=== PATIENT | female | born 1970 | race Caucasian/White ===

== ENCOUNTER 2016-08-18 09:05 | Inpatient (IN) | payer MEDICARE, MEDICAID ==
--- NOTE | 2016-08-18 09:30 | ED Physician Chart ---
Chief Complaint/HPI - Patient Information Date Seen:: 08/18/16 Time Seen:: 09:26 Chief Complaint:: abd p History of Present Illness:: pt bronght in by caregiver today. is complaining of mid-abd pain and wont eat this am. did eat yesterday 3 meals ok. no n/v/d. pt has minimal communicative ability and caregiver unable to determine the level of the pain. there has been a dry casing flusher cough also. has some temp here. no other known sx. no CHAUDHARY. no uri sx otw. no back pain. pt has a indwelling gandhi...last changed about 3 wks ago. Allergies:: Allergies Allergy/AdvReac Type Severity Reaction Status Date / Time No Known Allergies Allergy Verified 08/18/16 09:14 Vitals:: Vital Signs - 8 hr 08/18/16 09:05 Temp 97.5 F HR 77 RR 16 BP 108/67 O2 Sat % 98 Historian:: Patient, Other (caregiver) Review of Systems - Review of Systems General/Constitutional: Fever, No chills, No weight loss, No weakness, No diaphoresis, No edema, No loss of appetite Skin: No skin lesions, No rash, No bruising Head: No headache, No light-headedness Eyes: No loss of vision, No pain, No diplopia ENT: No earache, No nasal drainage, No sore throat, No tinnitus Neck: No neck pain, No swelling, No thyromegaly, No stiffness, No mass noted Cardio Vascular: No chest pain, No palpitations, No PND, No orthopnea, No edema Pulmonary: No SOB, Cough, No sputum, No wheezing GI: No nausea, No vomiting, No diarrhea, Pain, No melena, No hematochezia, No constipation, No hematemesis G/U: No dysuria, No frequency, No hematuria Musculoskeletal: No bone or joint pain, No back pain, No muscle pain Endocrine: No polyuria, No polydipsia Psychiatric: No prior psych history, No depression, No anxiety, No suicidal ideation Hematopoietic: No bruising, No lymphadenopathy Allergic/Immuno: No urticaria, No angioedema Neurological: No syncope, No focal symptoms, No weakness, No paresthesia, No headache, No seizure, No dizziness, No confusion, No vertigo Past Medical History - Past Medical History Past Medical History: Dyslipidemia, PUD/GERD, Thyroid disorder, Other ( developmentally challenged (donws synd?)) Social History: Care Facility Surgical History: None Medication: Reviewed Family Medical History - Family Member Mother History Unknown: Yes Physical Exam - Physical Examination General/Constitutional: Awake, Well-developed, well-nourished, Alert, No distress, GCS 15, Non-toxic appearing, Ambulatory Other Gen/Cons comments:: short statured w broad chest/body pt is awake/alert...poor historian. seems comfortable. oral mucosa dry lungs- clear b, nonlabored breathing, no cough heard during my exam. abd- mid abd tndrness. pos nabs. no rebound. no masses. Legs no edema, nontndr Head: Atraumatic Eyes: Lids, conjuctiva normal, PERRL, EOMI Skin: Nl inspection, No rash, No skin lesions, No ecchymosis, Well hydrated, No lymphadenopathy ENMT: External ears, nose nl, Nasal exam nl, Lips, teeth, gums nl Neck: Nontender, Full ROM w/o pain, No JVD, No nuchal rigidity, No bruit, No mass, No stridor Respiratory: Nl effort/Exclusion, Clear to Auscultation, No Wheeze/Rhonchi/Rales Cardio Vascular: RRR, No murmur, gallop, rubs, NL S1 S2 GI: No tenderness/rebounding/guarding, No organomegaly, No hernia, Normal BS's, Nondistended, No mass/bruits, No McBurney tenderness : No CVA tenderness Extremities: No tenderness or effusion, Full ROM, normal strength in all extremities, No edema, Normal digits & nails Neuro/Psych: Alert/oriented, DTR's symmetric, Normal sensory exam, Normal motor strength, Mood normal, Normal gait, No focal deficits Other Neuro/Psych comments:: baseline neuro status per [facility] Misc: normal gait, Normal back, No paraspinal tenderness Labs/Radiology/EKG Results - Lab Results Results: Laboratory Tests 08/18/16 08/18/16 08/18/16 09:45 09:45 09:45 WBC 10.0 RBC 3.15 L Hgb 11.0 L Hct 31.2 L MCV 99.2 MCH 34.8 H MCHC Differential 35.1 RDW 11.5 Plt Count 142 L MPV 7.9 Sodium 118 L* Potassium 3.9 Chloride 91 L Carbon Dioxide 24.4 Anion Gap 6.5 L BUN 11 Creatinine 1.0 Est GFR ( Amer) > 60.0 Est GFR (Non-Af Amer) > 60.0 BUN/Creatinine Ratio 11.0 Glucose 123 H Whole Bld Lactic Acid 0.59 L Calcium 8.3 L Total Bilirubin 0.4 AST 17 ALT 14 Alkaline Phosphatase 66 Troponin I Total Protein 6.7 Albumin 3.4 L Globulin 3.3 Albumin/Globulin Ratio 1.0 Urine Source Urine Color Urine Clarity Urine pH Ur Specific [place] Urine Protein Urine Glucose (UA) Urine Ketones Urine Blood Urine Nitrate Urine Bilirubin Urine Urobilinogen Ur Leukocyte Esterase Urine Test 08/18/16 08/18/16 08/18/16 09:45 10:00 10:00 WBC RBC Hgb Hct MCV MCH MCHC Differential RDW Plt Count MPV Sodium Potassium Chloride Carbon Dioxide Anion Gap BUN Creatinine Est GFR ( Amer) Est GFR (Non-Af Amer) BUN/Creatinine Ratio Glucose Whole Bld Lactic Acid Calcium Total Bilirubin AST ALT Alkaline Phosphatase Troponin I < 0.01 L Total Protein Albumin Globulin Albumin/Globulin Ratio Urine Source CATH Urine Color YELLOW Urine Clarity SL. CLOUDY Urine pH 6.0 Ur Specific [place] 1.010 Urine Protein TRACE Urine Glucose (UA) NEGATIVE Urine Ketones NEGATIVE Urine Blood MODERATE H Urine Nitrate NEGATIVE Urine Bilirubin NEGATIVE Urine Urobilinogen 0.2 Ur Leukocyte Esterase LARGE H Urine Test NEGATIVE - Radiology Results Results: ct abd- copious stool, pericardial effusion, bladder wall thickening. l adnexal cysts cxr nad - EKG Interpretations EKG Time:: 09:35 Rhythm: nsr 68, wnl [place]: 69 Rate: 68 ED Septic Shock - . Is Septic Shock (SBP<90, OR Lactate>4 mmol\L) present?: No - <6hrs of presentation: Vital Signs: Vital Signs - 8 hr 08/18/16 09:05 Temp 97.5 F HR 77 RR 16 BP 108/67 O2 Sat % 98 Reassessment (Disposition) - Reassessment Reassessment Condition:: Unchanged - Diagnosis Diagnosis:: 1 uti 2 pericardial effusion 3 adnexal cysys 4 constipation - Patient Disposition Admitted to:: Med/Surg Condition at Disposition:: Unchanged
[2016-08-18 10:11] LABS: ALKALINE PHOSPHATASE 66 U/L (34-104); ANION GAP 6.5 (7.0-16.0); BILIRUBIN,TOTAL 0.4 mg/dL (0.3-1.0); BUN - UREA NITROGEN 11 mg/dL (7-25); CALCIUM SERUM 8.3 mg/dL (8.6-10.3); CARBON DIOXIDE 24.4 mEq/L (21.0-31.0); CHLORIDE 91 mEq/L (98-107); GLUCOSE 123 mg/dL (70-105); POTASSIUM SERUM 3.9 mEq/L (3.5-5.1); SGOT 17 U/L (13-39); SGPT/ALT 14 U/L (7-52)
[2016-08-18 10:13] LABS: HEMATOCRIT 31.2 % (35.0-45.0); MEAN CELL VOLUME 99.2 fl (81-100); MEAN CORPUSCULAR HEMOGLOBIN 34.8 pg (27.0-31.0); MEAN CORPUSCULAR HGB CONC 35.1 pg (28.0-36.0); MEAN PLATELET VOLUME 7.9 fl; PLATELET COUNT 142 Th/cmm (150-400); RED BLOOD COUNT 3.15 Mil/cmm (3.80-5.10); RED CELL DISTRIBUTION WIDTH 11.5 % (11.5-20.0)
[2016-08-18 10:15] LABS: SODIUM SERUM 118 mEq/L (136-145)
[2016-08-18 10:15] LABS: URINE BILIRUBIN NEGATIVE (NEGATIVE); URINE BLOOD MODERATE (NEGATIVE); URINE COLOR YELLOW; URINE GLUCOSE (UA) NEGATIVE (NEGATIVE); URINE KETONE NEGATIVE (NEGATIVE); URINE PROTEIN TRACE mg/dL (NEGATIVE); URINE UROBILINOGEN 0.2 E.U./dL (0.2 - 1.0)
[2016-08-18] MEDS ORDERED: Sodium Chloride 0.9% 1,000 ML IV ONE ×3 (10:15→11:29)
[2016-08-18 10:19] LABS: URINE BACTERIA MODERATE /hpf (NONE SEEN); URINE EPITHELIAL CELLS MODERATE /lpf (FEW); URINE WBC 50-100 /hpf (0-5)
--- NOTE | 2016-08-18 10:21 | Diagnostic Imaging Report ---
CHEST X-RAY: AP view INDICATION: Cough COMPARISON: None FINDINGS: Mild increased interstitial lung markings are noted. No focal consolidation. There may be trace bilateral effusions. Borderline prominent heart is noted. Osseous structures are intact IMPRESSION: Mild increased interstitial lung markings which may represent a marginal degree of congestion. These correlate clinically. Borderline cardiomegaly.
[2016-08-18 11:03] LABS: BAND NEUTROPHILE 10 % (0-10); NEUTROPHILS 86 % (40-80); PLATELET ESTIMATE ADEQUATE (NORMAL); PLATELET MORPHOLOGY NORMAL (NORMAL); TOTAL CELLS COUNTED 100
--- NOTE | 2016-08-18 11:06 | Diagnostic Imaging Report ---
CT abdomen and pelvis without intravenous contrast Indication: Abdominal pain Comparison: None, Technique: Axial images were obtained from the lung bases to the bilateral proximal femurs without IV contrast. Coronal reconstructions were made. total DLP: 435, CTDI9.6 FINDINGS: Exam is limited due to motion Hypoventilatory atelectatic changes of the lung bases are seen with small bilateral effusions. Small pericardial effusion is partially visualized. Assessment of the solid organs is limited due to lack of IV contrast. No evidence of focal hepatic lesions. Borderline splenomegaly is noted. No focal identified. Evaluation of the pancreas is limited, however, no discrete focal lesions identified. No focal adrenal lesions. Left renal atrophy is noted. Mild to moderate bilateral hydronephrosis is noted. A Murray catheter seen within collapsed urinary bladder with urinary bladder wall thickening. No radiopaque stones identified. Heterogeneous uterus is noted. Small left adnexal cystic changes are noted. Copious stool is seen throughout the colon gas-filled loops of bowel. No evidence of appendicitis. Small free fluid is seen within the pelvis. No free air. Degenerative changes of the spine are noted. IMPRESSION: Copious stool throughout the colon. Please clinically clinically for constipation. Murray catheter within collapsed urinary bladder with generalized urinary bladder wall thickening. Please correlate with clinical findings. There is also mild to moderate bilateral hydronephrosis which may be long-standing. No radiopaque renal stones identified. Left renal atrophy was also noted. Small amount of free fluid in the pelvis Heterogeneous uterus and small left adnexal cystic changes.. Short-term follow-up ultrasound would provide for additional detail and assessment. Borderline splenomegaly. Small pleural effusions and small pericardial effusion.
[2016-08-18] MEDS ORDERED: cefTRIAXone 1 GM in Sodium Chloride 0.9% 50 ML IV SCH (12:00)
[2016-08-18 12:53] VITALS: BP 132/63
[2016-08-18] MEDS ORDERED: ACETAMINOPHEN 500 MG PO PRN (13:34)
[2016-08-18] MEDS ORDERED: Acetaminophen 500 MG TAB ONE (13:45)
[2016-08-18] MEDS: Acetaminophen 500 MG TAB PO PRN (15:45)
[2016-08-18] MEDS ORDERED: Pneumococcal Vaccine 0.5 mL Vial IM ONE (15:58)
[2016-08-18] MEDS ORDERED: Influenza Vaccine 0.5 mL Syr IM ONE (15:58)
[2016-08-18] MEDS: Docusate Sodium/Senna Tab PO SCH (16:29)
[2016-08-18] MEDS: Ferrous Sulfate 325 MG TAB PO SCH (16:29)
--- NOTE | 2016-08-18 16:35 | History & Physical ---
CHIEF COMPLAINT: Abdominal pain. HISTORY OF PRESENT ILLNESS: This is the case of a 45-year-old white female with Down syndrome, who was brought by product safety engineer secondary to abdominal pain. The patient is a poor historian and she cannot relate the level of pain. During examination in the ER, was found UTI plus hyponatremia. Due to these, the patient was hospitalized. PAST MEDICAL HISTORY: The patient has past medical history of Down syndrome apparently, she uses antipsychotics, dyslipidemia, GERD, and thyroid disorder. SOCIAL HISTORY: The patient is a permanent resident of a care facility. SURGICAL HISTORY: None. MEDICATIONS: Reviewed. FAMILY HISTORY: Unremarkable. ALLERGIES: No known allergies. REVIEW OF SYSTEMS: Information was not obtained secondary to the patient's mental condition. PHYSICAL EXAMINATION: GENERAL: Does reveal a fairly nourished and developed white female, awake, alert, in no distress. HEENT: Head is normocephalic and atraumatic. Eyes: Pupils reactive to light. Fundus not examined at this time. Nose: No evidence of nasal obstruction. Ears: No evidence of any discharge. Mouth: Fairly kept. LUNGS: Bilateral air entry. HEART: Regular rhythm. ABDOMEN: Soft, tender on palpation in the suprapubic area, bowel sound is present. EXTREMITIES: Full movement of all extremities. No edema. NEUROLOGICAL: The patient is awake, alert, confused, not oriented. Neurological examination was not completed secondary to the patient's mental condition. IMPRESSION: 1. Urinary tract infection. 2. Pericardial effusion. 3. Ovarian cysts. 4. Constipation. 5. Mental retardation, Down syndrome. PLAN: 1. The patient will be admitted in the medical surgical floor. 2. IV normal saline. 3. Ceftriaxone. 4. Regular diet. 5. Continue with home medications. 6. Consult with Cardiology. 7. CBC, CMP at a.m. JOB# [id number]
--- NOTE | 2016-08-18 19:21 | Admit Criteria Form ---
Admit Criteria Forms - Admit Criteria Diagnosis: URINARY COMPLICATIONS Clinical Indications for Inpatient Care (Place 'X' for any and all applicable criteria): Ongoing inpatient care may be indicated for urinary complications with ANY ONE of the following: [X]I. Urinary tract infection requiring inpatient care as indicated by ANY ONE of the following(8)(19)(20): [ ]a) Severe symptoms (eg, high fever, severe pain) [ ]b) Vomiting or dehydration requiring ongoing inpatient care [X]c) IV antibiotic needs that cannot be managed at lower level of care [ ]d) Hemodynamic instability [ ]e) Obstruction of collecting system by stone or tumor [ ]II. Urinary retention requiring drainage or surgery (3)(4)(5)(17)(18) [ ]III. Renal failure (Use Renal Failure Criteria for further information.) [ ]IV. Oliguria(30) [ ]V. Post obstructive diuresis requiring close monitoring of urine output and intravenous compensation for excessive fluid losses(33) Extended stay beyond goal length of stay for primary condition may be needed until ALL of the following are present(3)(4)(5)(8): [ ]a) Renal function (creatinine) at baseline, or daily decreases in creatinine consistent with renal function return [ ]b) Voiding adequately or with urinary catheter or percutaneous suprapubic tube and management regimen in place that is performable at lower level of care. [ ]c) Urine output adequate [ ]d) Fever absent or resolving [ ]e) Infection absent or treatable at next level of care The original [employer] content created by [employer] has been revised. The portions of the content which have been revised are identified through the use of italic text or in bold, and [facility] has neither reviewed nor approved the modified material. All other unmodified content is copyright [facility] [employer] Please see references footnoted in the original [facility] [employer] edition 2016 Admit Criteria Met?: Yes
[2016-08-18] MEDS: Sodium Chloride 0.9% 1,000 ML IV SCH (22:54)
[2016-08-19] MEDS: Acetaminophen 500 MG TAB PO PRN ×2 (02:06→10:15)
[2016-08-19] MEDS: Levothyroxine 0.075 Mg Tab PO SCH (08:25)
[2016-08-19] MEDS: Ferrous Sulfate 325 MG TAB PO SCH ×2 (08:26→16:14)
[2016-08-19] MEDS: Docusate Sodium/Senna Tab PO SCH ×2 (08:26→16:14)
[2016-08-19] MEDS: Multivitamin Tab PO SCH (08:27)
--- NOTE | 2016-08-19 09:14 | General Progress Note ---
Subjective - Review of Systems Service Date: 08/19/16 Subjective: I am fine Objective - Results Result Diagrams: 08/18/16 09:45 08/18/16 09:45 Recent Labs: Laboratory Last Values WBC 10.0 Th/cmm (4.8-10.8) 08/18/16 09:45 RBC 3.15 Mil/cmm (3.80-5.10) L 08/18/16 09:45 Hgb 11.0 gm/dL (11.7-15.5) L 08/18/16 09:45 Hct 31.2 % (35.0-45.0) L 08/18/16 09:45 MCV 99.2 fl (81-100) 08/18/16 09:45 MCH 34.8 pg (27.0-31.0) H 08/18/16 09:45 MCHC Differential 35.1 pg (28.0-36.0) 08/18/16 09:45 RDW 11.5 % (11.5-20.0) 08/18/16 09:45 Plt Count 142 Th/cmm (150-400) L 08/18/16 09:45 MPV 7.9 fl 08/18/16 09:45 Band Neutrophils % 10 % (0-10) 08/18/16 09:45 Neutrophils (Manual) 86 % (40-80) H 08/18/16 09:45 Lymphocytes 1 % (20-50) L 08/18/16 09:45 Monocytes 3 % (2-10) 08/18/16 09:45 Platelet Estimate ADEQUATE (NORMAL) 08/18/16 09:45 Platelet Morphology NORMAL (NORMAL) 08/18/16 09:45 RBC Morph Micro Appear NORMAL (NORMAL) 08/18/16 09:45 Sodium 118 mEq/L (136-145) L* 08/18/16 09:45 Potassium 3.9 mEq/L (3.5-5.1) 08/18/16 09:45 Chloride 91 mEq/L (98-107) L 08/18/16 09:45 Carbon Dioxide 24.4 mEq/L (21.0-31.0) 08/18/16 09:45 Anion Gap 6.5 (7.0-16.0) L 08/18/16 09:45 BUN 11 mg/dL (7-25) 08/18/16 09:45 Creatinine 1.0 mg/dL (0.6-1.2) 08/18/16 09:45 Est GFR ( Amer) > 60.0 ml/min (>90) 08/18/16 09:45 Est GFR (Non-Af Amer) > 60.0 ml/min 08/18/16 09:45 BUN/Creatinine Ratio 11.0 08/18/16 09:45 Glucose 123 mg/dL (70-105) H 08/18/16 09:45 Whole Bld Lactic Acid 0.59 mmol/L (0.60-2.00) L 08/18/16 09:45 Calcium 8.3 mg/dL (8.6-10.3) L 08/18/16 09:45 Total Bilirubin 0.4 mg/dL (0.3-1.0) 08/18/16 09:45 AST 17 U/L (13-39) 08/18/16 09:45 ALT 14 U/L (7-52) 08/18/16 09:45 Alkaline Phosphatase 66 U/L (34-104) 08/18/16 09:45 Troponin I < 0.01 ng/mL (0.01-0.05) L 08/18/16 09:45 Total Protein 6.7 gm/dL (6.0-8.3) 08/18/16 09:45 Albumin 3.4 gm/dL (3.7-5.3) L 08/18/16 09:45 Globulin 3.3 gm/dL 08/18/16 09:45 Albumin/Globulin Ratio 1.0 (1.0-1.8) 08/18/16 09:45 Urine Source CATH 08/18/16 10:00 Urine Color YELLOW 08/18/16 10:00 Urine Clarity SL. CLOUDY (CLEAR) 08/18/16 10:00 Urine pH 6.0 08/18/16 10:00 Ur Specific [place] 1.010 (1.005-1.030) 08/18/16 10:00 Urine Protein TRACE mg/dL (NEGATIVE) 08/18/16 10:00 Urine Glucose (UA) NEGATIVE mg/dL (NEGATIVE) 08/18/16 10:00 Urine Ketones NEGATIVE mg/dL (NEGATIVE) 08/18/16 10:00 Urine Blood MODERATE (NEGATIVE) H 08/18/16 10:00 Urine Nitrate NEGATIVE (NEGATIVE) 08/18/16 10:00 Urine Bilirubin NEGATIVE (NEGATIVE) 08/18/16 10:00 Urine Urobilinogen 0.2 E.U./dL (0.2 - 1.0) 08/18/16 10:00 Ur Leukocyte Esterase LARGE (NEGATIVE) H 08/18/16 10:00 Urine RBC 3-6 /hpf (0-5) 08/18/16 10:00 Urine WBC 50-100 /hpf (0-5) H 08/18/16 10:00 Ur Epithelial Cells MODERATE /lpf (FEW) 08/18/16 10:00 Urine Bacteria MODERATE /hpf (NONE SEEN) 08/18/16 10:00 Urine Test NEGATIVE 08/18/16 10:00 - Physical Exam Vitals and I&O: Vital Signs Temp 97.8 F 08/19/16 08:00 Pulse 69 08/19/16 08:00 Resp 18 08/19/16 08:00 BP 117/61 08/19/16 08:00 Pulse Ox 97 08/19/16 08:00 Intake & Output 08/18/16 08/19/16 08/19/16 18:59 06:59 18:59 Intake Total 50 1200 Output Total 2651 Balance 50 -1451 Intake: Intake, IV Amount 50 Oral 1200 Output: Urine 2650 Stool 1 Active Medications: Current Medications Acetaminophen (Tylenol Extra Strength) 500 mg PO Q6H PRN PRN Reason: Abdominal Pain Stop: 10/17/16 14:29 Last Admin: 08/19/16 02:06 Dose: 500 mg Ascorbic Acid (Vitamin C) 500 mg PO DAILY [facility] Stop: 10/18/16 08:59 Last Admin: 08/19/16 08:27 Dose: 500 mg Benztropine Mesylate (Cogentin) 0.5 mg PO BID [facility] Stop: 10/17/16 16:59 Last Admin: 08/19/16 08:25 Dose: 0.5 mg Cyanocobalamin (Vitamin B12) 1,000 mcg PO DAILY [facility] Stop: 10/18/16 08:59 Last Admin: 08/19/16 08:26 Dose: 1,000 mcg Famotidine (Pepcid) 20 mg PO BID [facility] Stop: 10/17/16 16:59 Last Admin: 08/19/16 08:25 Dose: 20 mg Ferrous Sulfate (Iron) 325 mg PO BID [facility] Stop: 10/17/16 16:59 Last Admin: 08/19/16 08:26 Dose: 325 mg Ceftriaxone Sodium 1 gm/ (Sodium Chloride) 100 mls @ 100 mls/hr IV Q24HR [facility] Stop: 10/18/16 09:59 Sodium Chloride (Nacl 0.9%) 1,000 mls @ 75 mls/hr IV .[id number] [facility] Stop: 10/17/16 13:44 Last Admin: 08/18/16 22:54 Dose: 75 mls/hr Levothyroxine Sodium (Synthroid) 0.075 mg PO QDAC [facility] Stop: 10/18/16 07:29 Last Admin: 08/19/16 08:25 Dose: 0.075 mg Magnesium Hydroxide (Milk Of Magnesia) 10 ml PO TID [facility] Stop: 10/18/16 13:59 Multivitamins/Vitamin C (Theragran) 1 tab PO DAILY [facility] Stop: 10/18/16 08:59 Last Admin: 08/19/16 08:27 Dose: 1 tab Paroxetine HCl (Paxil) 20 mg PO DAILY [facility] PRN Reason: Protocol Stop: 10/18/16 08:59 Last Admin: 08/19/16 08:24 Dose: 20 mg Sennosides (Senna Plus 50 Mg-8.6 Mg) 1 tab PO BID [facility] Stop: 10/17/16 16:59 Last Admin: 08/19/16 08:26 Dose: 1 tab Vitamin D (Vitamin D) 400 iu PO DAILY [facility] Stop: 10/18/16 08:59 Last Admin: 08/19/16 08:25 Dose: 400 iu Ziprasidone (Geodon) 80 mg PO BID [facility] Stop: 10/17/16 16:59 Last Admin: 08/19/16 08:28 Dose: 80 mg General: Alert, Other (Confused) HEENT: Atraumatic Neck: Supple Cardiovascular: Regular rate Lungs: Clear to auscultation Abdomen: Bowel sounds, Soft, Other (Tender at palpation in mesogastry) Extremities: Other (No edema) Neurological: Other (Unstable gait) Skin: Other (Warm and dry) Psych/Mental Status: Other (Confused) - Procedures Procedures: Procedures Procedure Code Date CHANGE DRAINAGE DEVICE IN BLADDER, EXTERNAL APPROACH [id number] 10/04/15 INSERT BLADDER CATH COMPLEX [id number] 03/02/15 INSERT TEMP BLADDER CATH [id number] 03/30/15 REPLACE INDWELLING CATH 57.95 03/02/15 Assessment/Plan - Problem List Patient Problems: All Active Problems Urinary retention (Acute) R33.9 - Assessment Assessment: Patient is awake, alert, calm, in no acute distress. Dx: UTI, MR, Down syndrome , Pericardial effusion - Plan Plan: Echocardiogram requested, Pelvic US requested, awaiting Cardio eval.
[2016-08-19] MEDS: cefTRIAXone 1 GM in Sodium Chloride 0.9% 100 ML IV SCH (09:55)
[2016-08-19 10:33] LABS: % BASOPHILS 0.3 % (0.0-2.0); % EOSINOPHILS 0.3 % (0.0-5.0); % MONOCYTES 7.3 % (2.0-10.0); % NEUTROPHILS 82.1 % (40.0-80.0); HEMATOCRIT 30.6 % (35.0-45.0); HEMOGLOBIN 10.2 gm/dL (11.7-15.5); MEAN CELL VOLUME 101.1 fl (81-100); MEAN CORPUSCULAR HEMOGLOBIN 33.8 pg (27.0-31.0); MEAN CORPUSCULAR HGB CONC 33.5 pg (28.0-36.0); MEAN PLATELET VOLUME 7.6 fl; NEUTROPHILE ABSOLUTE 4.5 Th/cmm (1.8-8.0); PLATELET COUNT 141 Th/cmm (150-400); RED BLOOD COUNT 3.03 Mil/cmm (3.80-5.10); RED CELL DISTRIBUTION WIDTH 11.9 % (11.5-20.0)
[2016-08-19 10:34] LABS: WHITE BLOOD COUNT 5.5 Th/cmm (4.8-10.8)
[2016-08-19 10:50] LABS: ALKALINE PHOSPHATASE 64 U/L (34-104); ANION GAP 5.4 (7.0-16.0); BILIRUBIN,TOTAL 0.2 mg/dL (0.3-1.0); BUN - UREA NITROGEN 12 mg/dL (7-25); BUN/CREATININE RATIO 13.3; CALCIUM SERUM 8.3 mg/dL (8.6-10.3); CARBON DIOXIDE 26.8 mEq/L (21.0-31.0); CHLORIDE 103 mEq/L (98-107); CREATININE - SERUM 0.9 mg/dL (0.6-1.2); GLUCOSE 123 mg/dL (70-105); POTASSIUM SERUM 4.2 mEq/L (3.5-5.1); SGOT 16 U/L (13-39); SGPT/ALT 14 U/L (7-52)
[2016-08-19 11:19] LABS: SODIUM SERUM 131 mEq/L (136-145)
--- NOTE | 2016-08-19 13:46 | Diagnostic Imaging Report ---
Pelvic ultrasound HISTORY: Pain, ovarian cyst The exam is limited due to transabdominal sonographic technique. The patient declined transvaginal sonographic evaluation. There is a normal uterine size (6.6 x 2.9 x 3.9 cm). The right ovary is unremarkable. The left ovary cannot be seen. No abnormal masses. No abnormal fluid collections. Findings consistent with an indwelling Murray catheter noted in the urinary bladder. IMPRESSION: 1. Somewhat limited exam 2. No definite abnormalities. No abnormal masses.
[2016-08-19] MEDS: Magnesium Hydroxide (MOM) 30 mL UDC PO SCH (14:11)
[2016-08-19] MEDS: Albuterol Nebulizer 2.5mg/3mL HHN SCH ×2 (14:12→19:24)
[2016-08-19] MEDS: Sodium Chloride 0.9% 1,000 ML IV SCH (18:45)
--- NOTE | 2016-08-19 19:14 | Cardiology ---
Patient of Dr. Lopez. M-MODE ECHOCARDIOGRAM: Mitral valve: Anterior leaflet of the mitral valve shows normal excursion, EF velocity. Posterior leaflet of the mitral valve shows normal excursion. Left ventricular posterior wall shows increased thickness, normal excursion. Interventricular septum shows increased thickness, normal excursion, hypertrophy of the left ventricle, ejection fraction 60%. Left atrium normal. Aortic root shows normal dimension, normal excursion of aortic leaflets. There is a trace pericardial effusion. CONCLUSION: Hypertrophy of the left ventricle, trace pericardial effusion, ejection fraction 60%. 2D ECHO: Long axis view showed normal-sized left ventricle with hypertrophy of the left ventricle. Left atrium normal. Aortic root shows normal dimension, normal excursion of aortic leaflets. Short axis view of mitral valve normal. Short axis view of aortic valve normal. Apical four-chamber view showed normal-sized left ventricle, left atrium, right ventricle, right atrium, tricuspid valve and mitral valve with trace tricuspid regurgitation. CONCLUSION: Minimal hypertrophy of the left ventricle, trace tricuspid regurgitation, ejection fraction 60%. Doppler study shows prominent A wave consistent with poor compliance of left ventricle, trace tricuspid regurgitation, pulmonary regurgitation, mitral regurgitation. CONCLUSION: Trace mitral regurgitation, tricuspid regurgitation, pulmonary regurgitation, ejection fraction 60%, mild hypertrophy of the left ventricle, trace pericardial effusion. [facility]# [id number]
--- NOTE | 2016-08-20 02:35 | Consultation ---
The patient of Dr. Lopez. HISTORY AND PHYSICAL: This 45-year-old female patient who is mentally retarded, the patient came to the Emergency Room with abdominal pain. The patient had a CT scan, which showed bilateral hydronephrosis with constipation. The patient is admitted. The patient had a trace pericardial effusion and hence, Cardiology consult was requested. PAST MEDICAL HISTORY: Down syndrome, hyperlipidemia, GERD, hypothyroidism. FAMILY HISTORY: Unremarkable. SOCIAL HISTORY: No history of smoking or alcohol abuse. ALLERGIES: None. PHYSICAL EXAMINATION: VITAL SIGNS: Blood pressure 120/80, pulse 70, respirations 20. HEAD: Normocephalic. No lumps or bumps. EYES: Pupils equal, reactive to light. Fundi show AV nicking, sclerae white, conjunctivae pink. NECK: Carotid 2+. Normal upstroke. JVD flat. Thyroid not palpable. Lymph nodes not palpable. CHEST: Shows increased AP diameter. No kyphosis or scoliosis. LUNGS: Bilateral bronchovesicular breath sounds. HEART: PMI fifth intercostal space with [id number] line. S1, S2. No S3 or S4. Systolic murmur, grade 2/6, lower left sternal border without radiation. ABDOMEN: Soft. Liver, spleen not palpable. No organomegaly. Bowel sounds active. NEUROLOGIC: The patient has Down syndrome. EXTREMITIES: Peripheral pulses 1+. No pedal edema. CLINICAL IMPRESSION: Small pericardial effusion, mental retardation, Down syndrome, urinary tract infection, hypothyroid, gastroesophageal reflux disease, hyperlipidemia. PLAN: The patient to continue on antibiotics. The patient does not need any further cardiac workup. The patient's echocardiogram shows trace pericardial effusion. JOB# [id number]
[2016-08-20 05:39] LABS: % BASOPHILS 0.9 % (0.0-2.0); % EOSINOPHILS 0.5 % (0.0-5.0); % LYMPHOCYTES 9.4 % (20.0-50.0); % MONOCYTES 6.5 % (2.0-10.0); % NEUTROPHILS 82.7 % (40.0-80.0); HEMATOCRIT 30.2 % (35.0-45.0); HEMOGLOBIN 10.5 gm/dL (11.7-15.5); MEAN CELL VOLUME 98.3 fl (81-100); MEAN CORPUSCULAR HGB CONC 34.6 pg (28.0-36.0); MEAN PLATELET VOLUME 7.4 fl; NEUTROPHILE ABSOLUTE 5.1 Th/cmm (1.8-8.0); PLATELET COUNT 164 Th/cmm (150-400); RED BLOOD COUNT 3.08 Mil/cmm (3.80-5.10); RED CELL DISTRIBUTION WIDTH 12.1 % (11.5-20.0); WHITE BLOOD COUNT 6.2 Th/cmm (4.8-10.8)
[2016-08-20 05:51] LABS: ALKALINE PHOSPHATASE 67 U/L (34-104); ANION GAP 9.8 (7.0-16.0); BILIRUBIN,TOTAL 0.3 mg/dL (0.3-1.0); BUN - UREA NITROGEN 10 mg/dL (7-25); BUN/CREATININE RATIO 12.5; CALCIUM SERUM 8.3 mg/dL (8.6-10.3); CARBON DIOXIDE 25.3 mEq/L (21.0-31.0); CHLORIDE 102 mEq/L (98-107); CREATININE - SERUM 0.8 mg/dL (0.6-1.2); GLUCOSE 120 mg/dL (70-105); POTASSIUM SERUM 4.1 mEq/L (3.5-5.1); SGOT 14 U/L (13-39); SGPT/ALT 10 U/L (7-52); SODIUM SERUM 133 mEq/L (136-145)
[2016-08-20] MEDS: Acetaminophen 500 MG TAB PO PRN (05:53)
[2016-08-20] MEDS: Magnesium Hydroxide (MOM) 30 mL UDC PO SCH ×4 (05:58→20:42)
[2016-08-20] MEDS: Levothyroxine 0.075 Mg Tab PO SCH (06:44)
[2016-08-20] MEDS: Albuterol Nebulizer 2.5mg/3mL HHN SCH ×3 (06:49→19:03)
--- NOTE | 2016-08-20 07:50 | General Progress Note ---
Subjective - Review of Systems Service Date: 08/20/16 Subjective: Pain is better Objective - Results Result Diagrams: 08/20/16 05:21 08/20/16 05:21 Recent Labs: Laboratory Last Values WBC 6.2 Th/cmm (4.8-10.8) 08/20/16 05:21 RBC 3.08 Mil/cmm (3.80-5.10) L 08/20/16 05:21 Hgb 10.5 gm/dL (11.7-15.5) L 08/20/16 05:21 Hct 30.2 % (35.0-45.0) L 08/20/16 05:21 MCV 98.3 fl (81-100) 08/20/16 05:21 MCH 34.0 pg (27.0-31.0) H 08/20/16 05:21 MCHC Differential 34.6 pg (28.0-36.0) 08/20/16 05:21 RDW 12.1 % (11.5-20.0) 08/20/16 05:21 Plt Count 164 Th/cmm (150-400) 08/20/16 05:21 MPV 7.4 fl 08/20/16 05:21 Neutrophils % 82.7 % (40.0-80.0) H 08/20/16 05:21 Band Neutrophils % 10 % (0-10) 08/18/16 09:45 Lymphocytes % 9.4 % (20.0-50.0) L 08/20/16 05:21 Monocytes % 6.5 % (2.0-10.0) 08/20/16 05:21 Eosinophils % 0.5 % (0.0-5.0) 08/20/16 05:21 Basophils % 0.9 % (0.0-2.0) 08/20/16 05:21 Neutrophils (Manual) 86 % (40-80) H 08/18/16 09:45 Lymphocytes 1 % (20-50) L 08/18/16 09:45 Monocytes 3 % (2-10) 08/18/16 09:45 Platelet Estimate ADEQUATE (NORMAL) 08/18/16 09:45 Platelet Morphology NORMAL (NORMAL) 08/18/16 09:45 RBC Morph Micro Appear NORMAL (NORMAL) 08/18/16 09:45 Sodium 133 mEq/L (136-145) L 08/20/16 05:21 Potassium 4.1 mEq/L (3.5-5.1) 08/20/16 05:21 Chloride 102 mEq/L (98-107) 08/20/16 05:21 Carbon Dioxide 25.3 mEq/L (21.0-31.0) 08/20/16 05:21 Anion Gap 9.8 (7.0-16.0) 08/20/16 05:21 BUN 10 mg/dL (7-25) 08/20/16 05:21 Creatinine 0.8 mg/dL (0.6-1.2) 08/20/16 05:21 Est GFR ( Amer) > 60.0 ml/min (>90) 08/20/16 05:21 Est GFR (Non-Af Amer) > 60.0 ml/min 08/20/16 05:21 BUN/Creatinine Ratio 12.5 08/20/16 05:21 Glucose 120 mg/dL (70-105) H 08/20/16 05:21 Whole Bld Lactic Acid 0.59 mmol/L (0.60-2.00) L 08/18/16 09:45 Calcium 8.3 mg/dL (8.6-10.3) L 08/20/16 05:21 Total Bilirubin 0.3 mg/dL (0.3-1.0) 08/20/16 05:21 AST 14 U/L (13-39) 08/20/16 05:21 ALT 10 U/L (7-52) 08/20/16 05:21 Alkaline Phosphatase 67 U/L (34-104) 08/20/16 05:21 Troponin I < 0.01 ng/mL (0.01-0.05) L 08/18/16 09:45 Total Protein 6.3 gm/dL (6.0-8.3) 08/20/16 05:21 Albumin 3.2 gm/dL (3.7-5.3) L 08/20/16 05:21 Globulin 3.1 gm/dL 08/20/16 05:21 Albumin/Globulin Ratio 1.0 (1.0-1.8) 08/20/16 05:21 Urine Source CATH 08/18/16 10:00 Urine Color YELLOW 08/18/16 10:00 Urine Clarity SL. CLOUDY (CLEAR) 08/18/16 10:00 Urine pH 6.0 08/18/16 10:00 Ur Specific [place] 1.010 (1.005-1.030) 08/18/16 10:00 Urine Protein TRACE mg/dL (NEGATIVE) 08/18/16 10:00 Urine Glucose (UA) NEGATIVE mg/dL (NEGATIVE) 08/18/16 10:00 Urine Ketones NEGATIVE mg/dL (NEGATIVE) 08/18/16 10:00 Urine Blood MODERATE (NEGATIVE) H 08/18/16 10:00 Urine Nitrate NEGATIVE (NEGATIVE) 08/18/16 10:00 Urine Bilirubin NEGATIVE (NEGATIVE) 08/18/16 10:00 Urine Urobilinogen 0.2 E.U./dL (0.2 - 1.0) 08/18/16 10:00 Ur Leukocyte Esterase LARGE (NEGATIVE) H 08/18/16 10:00 Urine RBC 3-6 /hpf (0-5) 08/18/16 10:00 Urine WBC 50-100 /hpf (0-5) H 08/18/16 10:00 Ur Epithelial Cells MODERATE /lpf (FEW) 08/18/16 10:00 Urine Bacteria MODERATE /hpf (NONE SEEN) 08/18/16 10:00 Urine Test NEGATIVE 08/18/16 10:00 - Physical Exam Vitals and I&O: Vital Signs Temp 97.5 F 08/20/16 03:50 Pulse 73 08/20/16 03:50 Resp 18 08/20/16 03:50 BP 98/51 08/20/16 03:50 Pulse Ox 98 08/20/16 03:50 Intake & Output 08/19/16 08/20/16 08/20/16 18:59 06:59 18:59 Intake Total 1000 840 Output Total 3201 Balance 1000 -2361 Intake: Intake, IV Amount 1000 Sodium Chloride 0.9% 1, 1000 000 ml @ 75 mls/hr IV . [id number] [facility] Rx#:[id number] Oral 840 Output: Urine 3200 Stool 1 Other: # Voids 1 # Bowel Movements 1 Stool Characteristics Soft Formed Black Active Medications: Current Medications Acetaminophen (Tylenol) 650 mg PO Q6H [facility] Stop: 10/19/16 07:59 Albuterol Sulfate (Albuterol 2.5mg/3ml Neb Ud) 2.5 mg HHN [id number] [facility] Stop: 10/18/16 12:59 Last Admin: 08/20/16 06:49 Dose: 2.5 mg Ascorbic Acid (Vitamin C) 500 mg PO DAILY [facility] Stop: 10/18/16 08:59 Last Admin: 08/19/16 08:27 Dose: 500 mg Benztropine Mesylate (Cogentin) 0.5 mg PO BID [facility] Stop: 10/17/16 16:59 Last Admin: 08/19/16 16:14 Dose: 0.5 mg Cyanocobalamin (Vitamin B12) 1,000 mcg PO DAILY [facility] Stop: 10/18/16 08:59 Last Admin: 08/19/16 08:26 Dose: 1,000 mcg Famotidine (Pepcid) 20 mg PO BID [facility] Stop: 10/17/16 16:59 Last Admin: 08/19/16 16:14 Dose: 20 mg Ferrous Sulfate (Iron) 325 mg PO BID [facility] Stop: 10/17/16 16:59 Last Admin: 08/19/16 16:14 Dose: 325 mg Ceftriaxone Sodium 1 gm/ (Sodium Chloride) 100 mls @ 100 mls/hr IV Q24HR [facility] Stop: 10/18/16 09:59 Last Admin: 08/19/16 09:55 Dose: 100 mls/hr Sodium Chloride (Nacl 0.9%) 1,000 mls @ 75 mls/hr IV .[id number] [facility] Stop: 10/17/16 13:44 Last Admin: 08/19/16 18:45 Dose: 75 mls/hr Levothyroxine Sodium (Synthroid) 0.075 mg PO QDAC [facility] Stop: 10/18/16 07:29 Last Admin: 08/20/16 06:44 Dose: 0.075 mg Magnesium Hydroxide (Milk Of Magnesia) 10 ml PO TID [facility] Stop: 10/18/16 13:59 Last Admin: 08/20/16 05:58 Dose: Not Given Multivitamins/Vitamin C (Theragran) 1 tab PO DAILY [facility] Stop: 10/18/16 08:59 Last Admin: 08/19/16 08:27 Dose: 1 tab Paroxetine HCl (Paxil) 20 mg PO DAILY [facility] PRN Reason: Protocol Stop: 10/18/16 08:59 Last Admin: 08/19/16 08:24 Dose: 20 mg Sennosides (Senna Plus 50 Mg-8.6 Mg) 1 tab PO BID [facility] Stop: 10/17/16 16:59 Last Admin: 08/19/16 16:14 Dose: 1 tab Vitamin D (Vitamin D) 400 iu PO DAILY [facility] Stop: 10/18/16 08:59 Last Admin: 08/19/16 08:25 Dose: 400 iu Ziprasidone (Geodon) 80 mg PO BID [facility] Stop: 10/17/16 16:59 Last Admin: 08/19/16 16:14 Dose: 80 mg General: Alert, Cooperative, No acute distress HEENT: Atraumatic Neck: Supple Cardiovascular: Regular rate Lungs: Clear to auscultation Abdomen: Bowel sounds, Soft, Tender, Other (Tender in middle of abdomen) Neurological: Normal gait Skin: Other (Warm and dry) Psych/Mental Status: Other (Confused) - Procedures Procedures: Procedures Procedure Code Date CHANGE DRAINAGE DEVICE IN BLADDER, EXTERNAL APPROACH [id number] 03/30/15 INSERT BLADDER CATH COMPLEX 52795 03/02/15 INSERT TEMP BLADDER CATH 12912 03/30/15 REPLACE INDWELLING CATH 57.95 03/02/15 Assessment/Plan - Problem List Patient Problems: All Active Problems Urinary retention (Acute) R33.9 - Assessment Assessment: Patient is awake, alert, calm, in no acute distress. Dx: UTI, MR, Down syndrome , Pericardial effusion - Plan Plan: Echocardiogram done. Pelvic US unremarkable. FOB requested.
[2016-08-20] MEDS: Multivitamin Tab PO SCH (08:17)
[2016-08-20] MEDS: Docusate Sodium/Senna Tab PO SCH ×2 (08:17→16:48)
[2016-08-20] MEDS: Ferrous Sulfate 325 MG TAB PO SCH ×2 (08:17→16:49)
[2016-08-20] MEDS: cefTRIAXone 1 GM in Sodium Chloride 0.9% 100 ML IV SCH (09:18)
[2016-08-20] MEDS: Sodium Chloride 0.9% 1,000 ML IV SCH (12:11)
[2016-08-21] MEDS: Sodium Chloride 0.9% 1,000 ML IV SCH (04:10)
[2016-08-21 05:28] LABS: % BASOPHILS 0.7 % (0.0-2.0); % EOSINOPHILS 1.8 % (0.0-5.0); % LYMPHOCYTES 16.1 % (20.0-50.0); % MONOCYTES 9.2 % (2.0-10.0); % NEUTROPHILS 72.2 % (40.0-80.0); HEMATOCRIT 30.4 % (35.0-45.0); HEMOGLOBIN 10.6 gm/dL (11.7-15.5); MEAN CELL VOLUME 99.3 fl (81-100); MEAN CORPUSCULAR HEMOGLOBIN 34.7 pg (27.0-31.0); MEAN PLATELET VOLUME 7.6 fl; NEUTROPHILE ABSOLUTE 3.5 Th/cmm (1.8-8.0); PLATELET COUNT 184 Th/cmm (150-400); RED BLOOD COUNT 3.06 Mil/cmm (3.80-5.10); RED CELL DISTRIBUTION WIDTH 12.1 % (11.5-20.0)
[2016-08-21 05:41] LABS: ALKALINE PHOSPHATASE 68 U/L (34-104); ANION GAP 7.5 (7.0-16.0); BILIRUBIN,TOTAL 0.2 mg/dL (0.3-1.0); BUN - UREA NITROGEN 14 mg/dL (7-25); CALCIUM SERUM 8.9 mg/dL (8.6-10.3); CHLORIDE 102 mEq/L (98-107); GLUCOSE 117 mg/dL (70-105); POTASSIUM SERUM 4.5 mEq/L (3.5-5.1); SGOT 15 U/L (13-39); SGPT/ALT 12 U/L (7-52); SODIUM SERUM 134 mEq/L (136-145)
[2016-08-21] MEDS: Levothyroxine 0.075 Mg Tab PO SCH (06:32)
[2016-08-21 06:41] LABS: WHITE BLOOD COUNT 4.8 Th/cmm (4.8-10.8)
[2016-08-21] MEDS: Albuterol Nebulizer 2.5mg/3mL HHN SCH ×3 (08:32→19:59)
[2016-08-21] MEDS: Ferrous Sulfate 325 MG TAB PO SCH ×2 (08:51→16:33)
[2016-08-21] MEDS: Magnesium Hydroxide (MOM) 30 mL UDC PO SCH ×3 (08:52→21:08)
[2016-08-21] MEDS: Multivitamin Tab PO SCH (08:52)
[2016-08-21] MEDS: Docusate Sodium/Senna Tab PO SCH ×2 (08:53→16:34)
[2016-08-21] MEDS: cefTRIAXone 1 GM in Sodium Chloride 0.9% 100 ML IV SCH (10:19)
--- NOTE | 2016-08-21 16:01 | General Progress Note ---
Subjective - Review of Systems Service Date: 08/21/16 Subjective: I fell better Objective - Results Result Diagrams: 08/21/16 05:12 08/21/16 05:12 Recent Labs: Laboratory Last Values WBC 4.8 Th/cmm (4.8-10.8) D 08/21/16 05:12 RBC 3.06 Mil/cmm (3.80-5.10) L 08/21/16 05:12 Hgb 10.6 gm/dL (11.7-15.5) L 08/21/16 05:12 Hct 30.4 % (35.0-45.0) L 08/21/16 05:12 MCV 99.3 fl (81-100) 08/21/16 05:12 MCH 34.7 pg (27.0-31.0) H 08/21/16 05:12 MCHC Differential 35.0 pg (28.0-36.0) 08/21/16 05:12 RDW 12.1 % (11.5-20.0) 08/21/16 05:12 Plt Count 184 Th/cmm (150-400) 08/21/16 05:12 MPV 7.6 fl 08/21/16 05:12 Neutrophils % 72.2 % (40.0-80.0) 08/21/16 05:12 Band Neutrophils % 10 % (0-10) 08/18/16 09:45 Lymphocytes % 16.1 % (20.0-50.0) L 08/21/16 05:12 Monocytes % 9.2 % (2.0-10.0) 08/21/16 05:12 Eosinophils % 1.8 % (0.0-5.0) 08/21/16 05:12 Basophils % 0.7 % (0.0-2.0) 08/21/16 05:12 Neutrophils (Manual) 86 % (40-80) H 08/18/16 09:45 Lymphocytes 1 % (20-50) L 08/18/16 09:45 Monocytes 3 % (2-10) 08/18/16 09:45 Platelet Estimate ADEQUATE (NORMAL) 08/18/16 09:45 Platelet Morphology NORMAL (NORMAL) 08/18/16 09:45 RBC Morph Micro Appear NORMAL (NORMAL) 08/18/16 09:45 Sodium 134 mEq/L (136-145) L 08/21/16 05:12 Potassium 4.5 mEq/L (3.5-5.1) 08/21/16 05:12 Chloride 102 mEq/L (98-107) 08/21/16 05:12 Carbon Dioxide 29.0 mEq/L (21.0-31.0) 08/21/16 05:12 Anion Gap 7.5 (7.0-16.0) 08/21/16 05:12 BUN 14 mg/dL (7-25) 08/21/16 05:12 Creatinine 1.0 mg/dL (0.6-1.2) 08/21/16 05:12 Est GFR ( Amer) > 60.0 ml/min (>90) 08/21/16 05:12 Est GFR (Non-Af Amer) > 60.0 ml/min 08/21/16 05:12 BUN/Creatinine Ratio 14.0 08/21/16 05:12 Glucose 117 mg/dL (70-105) H 08/21/16 05:12 Whole Bld Lactic Acid 0.59 mmol/L (0.60-2.00) L 08/18/16 09:45 Calcium 8.9 mg/dL (8.6-10.3) 08/21/16 05:12 Total Bilirubin 0.2 mg/dL (0.3-1.0) L 08/21/16 05:12 AST 15 U/L (13-39) 08/21/16 05:12 ALT 12 U/L (7-52) 08/21/16 05:12 Alkaline Phosphatase 68 U/L (34-104) 08/21/16 05:12 Troponin I < 0.01 ng/mL (0.01-0.05) L 08/18/16 09:45 Total Protein 6.7 gm/dL (6.0-8.3) 08/21/16 05:12 Albumin 3.3 gm/dL (3.7-5.3) L 08/21/16 05:12 Globulin 3.4 gm/dL 08/21/16 05:12 Albumin/Globulin Ratio 1.0 (1.0-1.8) 08/21/16 05:12 TSH 4.64 uIU/ml (0.34-5.60) 08/21/16 05:12 Urine Source CATH 08/18/16 10:00 Urine Color YELLOW 08/18/16 10:00 Urine Clarity SL. CLOUDY (CLEAR) 08/18/16 10:00 Urine pH 6.0 08/18/16 10:00 Ur Specific [place] 1.010 (1.005-1.030) 08/18/16 10:00 Urine Protein TRACE mg/dL (NEGATIVE) 08/18/16 10:00 Urine Glucose (UA) NEGATIVE mg/dL (NEGATIVE) 08/18/16 10:00 Urine Ketones NEGATIVE mg/dL (NEGATIVE) 08/18/16 10:00 Urine Blood MODERATE (NEGATIVE) H 08/18/16 10:00 Urine Nitrate NEGATIVE (NEGATIVE) 08/18/16 10:00 Urine Bilirubin NEGATIVE (NEGATIVE) 08/18/16 10:00 Urine Urobilinogen 0.2 E.U./dL (0.2 - 1.0) 08/18/16 10:00 Ur Leukocyte Esterase LARGE (NEGATIVE) H 08/18/16 10:00 Urine RBC 3-6 /hpf (0-5) 08/18/16 10:00 Urine WBC 50-100 /hpf (0-5) H 08/18/16 10:00 Ur Epithelial Cells MODERATE /lpf (FEW) 08/18/16 10:00 Urine Bacteria MODERATE /hpf (NONE SEEN) 08/18/16 10:00 Urine Test NEGATIVE 08/18/16 10:00 Stool Occult Blood NEGATIVE (NEGATIVE) 08/20/16 10:05 - Physical Exam Vitals and I&O: Vital Signs Temp 97.9 F 08/21/16 12:00 Pulse 68 08/21/16 13:14 Resp 16 08/21/16 13:14 BP 105/71 08/21/16 12:00 Pulse Ox 98 08/21/16 13:14 Intake & Output 08/20/16 08/21/16 08/21/16 18:59 06:59 18:59 Intake Total 2100 1340 200 Output Total 2000 2600 Balance 100 -1260 200 Intake: Intake, IV Amount 1100 1000 Sodium Chloride 0.9% 1, 1000 1000 000 ml @ 75 mls/hr IV . [id number] [facility] Rx#:[id number] cefTRIAXone 1 gm In 100 Sodium Chloride 0.9% 100 ml @ 100 mls/hr IV Q24HR [facility] Rx#:[id number] Oral 1000 340 200 Output: Urine 2000 2600 Other: # Bowel Movements 3 Stool Characteristics Soft Formed Black Active Medications: Current Medications Acetaminophen (Tylenol) 650 mg PO QID [facility] Stop: 10/19/16 10:59 Last Admin: 08/21/16 12:30 Dose: 650 mg Albuterol Sulfate (Albuterol 2.5mg/3ml Neb Ud) 2.5 mg HHN [id number] [facility] Stop: 10/18/16 12:59 Last Admin: 08/21/16 13:07 Dose: 2.5 mg Ascorbic Acid (Vitamin C) 500 mg PO DAILY [facility] Stop: 10/18/16 08:59 Last Admin: 08/21/16 08:52 Dose: 500 mg Benztropine Mesylate (Cogentin) 0.5 mg PO BID [facility] Stop: 10/17/16 16:59 Last Admin: 08/21/16 08:52 Dose: 0.5 mg Cyanocobalamin (Vitamin B12) 1,000 mcg PO DAILY [facility] Stop: 10/18/16 08:59 Last Admin: 08/21/16 08:53 Dose: 1,000 mcg Famotidine (Pepcid) 20 mg PO BID [facility] Stop: 10/17/16 16:59 Last Admin: 08/21/16 08:53 Dose: 20 mg Ferrous Sulfate (Iron) 325 mg PO BID [facility] Stop: 10/17/16 16:59 Last Admin: 08/21/16 08:51 Dose: 325 mg Ceftriaxone Sodium 1 gm/ (Sodium Chloride) 100 mls @ 100 mls/hr IV Q24HR [facility] Stop: 10/18/16 09:59 Last Admin: 08/21/16 10:19 Dose: 100 mls/hr Sodium Chloride (Nacl 0.9%) 1,000 mls @ 75 mls/hr IV .[id number] [facility] Stop: 10/17/16 13:44 Last Admin: 08/21/16 04:10 Dose: 75 mls/hr Levothyroxine Sodium (Synthroid) 0.075 mg PO QDAC [facility] Stop: 10/18/16 07:29 Last Admin: 08/21/16 06:32 Dose: 0.075 mg Magnesium Hydroxide (Milk Of Magnesia) 10 ml PO TID [facility] Stop: 10/18/16 13:59 Last Admin: 02/25/17 13:18 Dose: 10 ml Multivitamins/Vitamin C (Theragran) 1 tab PO DAILY [facility] Stop: 10/18/16 08:59 Last Admin: 08/21/16 08:52 Dose: 1 tab Paroxetine HCl (Paxil) 20 mg PO DAILY [facility] PRN Reason: Protocol Stop: 10/18/16 08:59 Last Admin: 08/21/16 08:53 Dose: 20 mg Sennosides (Senna Plus 50 Mg-8.6 Mg) 1 tab PO BID [facility] Stop: 10/17/16 16:59 Last Admin: 08/21/16 08:53 Dose: 1 tab Vitamin D (Vitamin D) 400 iu PO DAILY [facility] Stop: 10/18/16 08:59 Last Admin: 08/21/16 08:53 Dose: 400 iu Ziprasidone (Geodon) 80 mg PO BID [facility] Stop: 10/17/16 16:59 Last Admin: 08/21/16 08:53 Dose: 80 mg General: Alert, Cooperative, No acute distress HEENT: Atraumatic Neck: Supple Cardiovascular: Regular rate Lungs: Clear to auscultation Abdomen: Bowel sounds, Soft, Other (Pain at palpation on mesogastry) Extremities: Other (no edema) Neurological: Normal gait Skin: Other (warm and dry) Psych/Mental Status: Other (Confused) - Procedures Procedures: Procedures Procedure Code Date CHANGE DRAINAGE DEVICE IN BLADDER, EXTERNAL APPROACH [id number] 03/30/15 INSERT BLADDER CATH COMPLEX 27532 03/02/15 INSERT TEMP BLADDER CATH 93882 03/30/15 REPLACE INDWELLING CATH 57.95 03/02/15 Assessment/Plan - Problem List Patient Problems: All Active Problems Urinary retention (Acute) R33.9 - Assessment Assessment: Patient is awake, alert, calm, in no acute distress. Dx: UTI, MR, Down syndrome , Pericardial effusion. Abdominal pain improved. - Plan Plan: Echocardiogram done. Pelvic US unremarkable. FOB normal. Patient will be discharge.
[2016-08-21] MEDS ORDERED: Influenza Vaccine 0.5 mL Syr IM ONE (17:05)
[2016-08-22] MEDS: Albuterol Nebulizer 2.5mg/3mL HHN SCH (07:25)
[2016-08-22] MEDS: Levothyroxine 0.075 Mg Tab PO SCH (08:31)
[2016-08-22] MEDS: Docusate Sodium/Senna Tab PO SCH (08:31)
[2016-08-22] MEDS: Multivitamin Tab PO SCH (08:31)
[2016-08-22] MEDS: Magnesium Hydroxide (MOM) 30 mL UDC PO SCH (08:32)
[2016-08-22] MEDS: Ferrous Sulfate 325 MG TAB PO SCH (08:32)
[2016-08-22] MEDS: cefTRIAXone 1 GM in Sodium Chloride 0.9% 100 ML IV SCH (09:27)
--- NOTE | 2016-08-22 11:52 | General Progress Note ---
Subjective - Review of Systems Service Date: 08/22/16 Subjective: I am ok. Objective - Results Result Diagrams: 08/21/16 05:12 08/21/16 05:12 Recent Labs: Laboratory Last Values WBC 4.8 Th/cmm (4.8-10.8) D 08/21/16 05:12 RBC 3.06 Mil/cmm (3.80-5.10) L 08/21/16 05:12 Hgb 10.6 gm/dL (11.7-15.5) L 08/21/16 05:12 Hct 30.4 % (35.0-45.0) L 08/21/16 05:12 MCV 99.3 fl (81-100) 08/21/16 05:12 MCH 34.7 pg (27.0-31.0) H 08/21/16 05:12 MCHC Differential 35.0 pg (28.0-36.0) 08/21/16 05:12 RDW 12.1 % (11.5-20.0) 08/21/16 05:12 Plt Count 184 Th/cmm (150-400) 08/21/16 05:12 MPV 7.6 fl 08/21/16 05:12 Neutrophils % 72.2 % (40.0-80.0) 08/21/16 05:12 Band Neutrophils % 10 % (0-10) 08/18/16 09:45 Lymphocytes % 16.1 % (20.0-50.0) L 08/21/16 05:12 Monocytes % 9.2 % (2.0-10.0) 08/21/16 05:12 Eosinophils % 1.8 % (0.0-5.0) 08/21/16 05:12 Basophils % 0.7 % (0.0-2.0) 08/21/16 05:12 Neutrophils (Manual) 86 % (40-80) H 08/18/16 09:45 Lymphocytes 1 % (20-50) L 08/18/16 09:45 Monocytes 3 % (2-10) 08/18/16 09:45 Platelet Estimate ADEQUATE (NORMAL) 08/18/16 09:45 Platelet Morphology NORMAL (NORMAL) 08/18/16 09:45 RBC Morph Micro Appear NORMAL (NORMAL) 08/18/16 09:45 Sodium 134 mEq/L (136-145) L 08/21/16 05:12 Potassium 4.5 mEq/L (3.5-5.1) 08/21/16 05:12 Chloride 102 mEq/L (98-107) 08/21/16 05:12 Carbon Dioxide 29.0 mEq/L (21.0-31.0) 08/21/16 05:12 Anion Gap 7.5 (7.0-16.0) 08/21/16 05:12 BUN 14 mg/dL (7-25) 08/21/16 05:12 Creatinine 1.0 mg/dL (0.6-1.2) 08/21/16 05:12 Est GFR ( Amer) > 60.0 ml/min (>90) 08/21/16 05:12 Est GFR (Non-Af Amer) > 60.0 ml/min 08/21/16 05:12 BUN/Creatinine Ratio 14.0 08/21/16 05:12 Glucose 117 mg/dL (70-105) H 08/21/16 05:12 Whole Bld Lactic Acid 0.59 mmol/L (0.60-2.00) L 08/18/16 09:45 Calcium 8.9 mg/dL (8.6-10.3) 08/21/16 05:12 Total Bilirubin 0.2 mg/dL (0.3-1.0) L 08/21/16 05:12 AST 15 U/L (13-39) 08/21/16 05:12 ALT 12 U/L (7-52) 08/21/16 05:12 Alkaline Phosphatase 68 U/L (34-104) 08/21/16 05:12 Troponin I < 0.01 ng/mL (0.01-0.05) L 08/18/16 09:45 Total Protein 6.7 gm/dL (6.0-8.3) 08/21/16 05:12 Albumin 3.3 gm/dL (3.7-5.3) L 08/21/16 05:12 Globulin 3.4 gm/dL 08/21/16 05:12 Albumin/Globulin Ratio 1.0 (1.0-1.8) 08/21/16 05:12 TSH 4.64 uIU/ml (0.34-5.60) 08/21/16 05:12 Urine Source CATH 08/18/16 10:00 Urine Color YELLOW 08/18/16 10:00 Urine Clarity SL. CLOUDY (CLEAR) 08/18/16 10:00 Urine pH 6.0 08/18/16 10:00 Ur Specific [place] 1.010 (1.005-1.030) 08/18/16 10:00 Urine Protein TRACE mg/dL (NEGATIVE) 08/18/16 10:00 Urine Glucose (UA) NEGATIVE mg/dL (NEGATIVE) 08/18/16 10:00 Urine Ketones NEGATIVE mg/dL (NEGATIVE) 08/18/16 10:00 Urine Blood MODERATE (NEGATIVE) H 08/18/16 10:00 Urine Nitrate NEGATIVE (NEGATIVE) 08/18/16 10:00 Urine Bilirubin NEGATIVE (NEGATIVE) 08/18/16 10:00 Urine Urobilinogen 0.2 E.U./dL (0.2 - 1.0) 08/18/16 10:00 Ur Leukocyte Esterase LARGE (NEGATIVE) H 08/18/16 10:00 Urine RBC 3-6 /hpf (0-5) 08/18/16 10:00 Urine WBC 50-100 /hpf (0-5) H 08/18/16 10:00 Ur Epithelial Cells MODERATE /lpf (FEW) 08/18/16 10:00 Urine Bacteria MODERATE /hpf (NONE SEEN) 08/18/16 10:00 Urine Test NEGATIVE 08/18/16 10:00 Stool Occult Blood NEGATIVE (NEGATIVE) 08/20/16 10:05 - Physical Exam Vitals and I&O: Vital Signs Temp 97.8 F 08/22/16 08:00 Pulse 62 08/22/16 08:00 Resp 18 08/22/16 08:00 BP 103/67 08/22/16 08:00 Pulse Ox 93 08/22/16 08:00 Intake & Output 08/21/16 08/22/16 08/22/16 18:59 06:59 18:59 Intake Total 540 300 240 Output Total 1300 3300 Balance -760 -3000 240 Intake: Intake, IV Amount 100 cefTRIAXone 1 gm In 100 Sodium Chloride 0.9% 100 ml @ 100 mls/hr IV Q24HR [facility] Rx#:[id number] Oral 440 300 240 Output: Urine 1300 3300 Other: # Bowel Movements 1 Stool Characteristics Formed Active Medications: Current Medications Acetaminophen (Tylenol) 650 mg PO QID [facility] Stop: 10/19/16 10:59 Last Admin: 08/22/16 08:32 Dose: 650 mg Albuterol Sulfate (Albuterol 2.5mg/3ml Neb Ud) 2.5 mg HHN [id number] [facility] Stop: 10/18/16 12:59 Last Admin: 08/22/16 07:25 Dose: 2.5 mg Ascorbic Acid (Vitamin C) 500 mg PO DAILY [facility] Stop: 10/18/16 08:59 Last Admin: 08/22/16 08:31 Dose: 500 mg Benztropine Mesylate (Cogentin) 0.5 mg PO BID [facility] Stop: 10/17/16 16:59 Last Admin: 08/22/16 08:31 Dose: 0.5 mg Cyanocobalamin (Vitamin B12) 1,000 mcg PO DAILY [facility] Stop: 10/18/16 08:59 Last Admin: 08/22/16 08:31 Dose: 1,000 mcg Famotidine (Pepcid) 20 mg PO BID [facility] Stop: 10/17/16 16:59 Last Admin: 08/22/16 08:31 Dose: 20 mg Ferrous Sulfate (Iron) 325 mg PO BID [facility] Stop: 10/17/16 16:59 Last Admin: 08/22/16 08:32 Dose: 325 mg Ceftriaxone Sodium 1 gm/ (Sodium Chloride) 100 mls @ 100 mls/hr IV Q24HR [facility] Stop: 10/18/16 09:59 Last Admin: 08/22/16 09:27 Dose: 100 mls/hr Sodium Chloride (Nacl 0.9%) 1,000 mls @ 75 mls/hr IV .[id number] [facility] Stop: 10/17/16 13:44 Last Admin: 08/21/16 04:10 Dose: 75 mls/hr Levothyroxine Sodium (Synthroid) 0.075 mg PO QDAC [facility] Stop: 10/18/16 07:29 Last Admin: 08/22/16 08:31 Dose: 0.075 mg Magnesium Hydroxide (Milk Of Magnesia) 10 ml PO TID [facility] Stop: 10/18/16 13:59 Last Admin: 08/22/16 08:32 Dose: 10 ml Multivitamins/Vitamin C (Theragran) 1 tab PO DAILY [facility] Stop: 10/18/16 08:59 Last Admin: 08/22/16 08:31 Dose: 1 tab Paroxetine HCl (Paxil) 20 mg PO DAILY [facility] PRN Reason: Protocol Stop: 10/18/16 08:59 Last Admin: 08/22/16 08:31 Dose: 20 mg Sennosides (Senna Plus 50 Mg-8.6 Mg) 1 tab PO BID [facility] Stop: 10/17/16 16:59 Last Admin: 08/22/16 08:31 Dose: 1 tab Vitamin D (Vitamin D) 400 iu PO DAILY [facility] Stop: 10/18/16 08:59 Last Admin: 08/22/16 08:31 Dose: 400 iu Ziprasidone (Geodon) 80 mg PO BID [facility] Stop: 10/17/16 16:59 Last Admin: 08/22/16 08:30 Dose: 80 mg General: Alert, No acute distress HEENT: Atraumatic Neck: Supple Cardiovascular: Regular rate Lungs: Clear to auscultation Abdomen: Bowel sounds, Soft, Other (Non tender) Neurological: Normal gait Skin: Other (warm and dry) Psych/Mental Status: Other (Confused, MR) - Procedures Procedures: Procedures Procedure Code Date CHANGE DRAINAGE DEVICE IN BLADDER, EXTERNAL APPROACH [id number] 03/30/15 INSERT BLADDER CATH COMPLEX 76167 03/02/15 INSERT TEMP BLADDER CATH 54255 03/30/15 REPLACE INDWELLING CATH 57.95 03/02/15 Assessment/Plan - Problem List Patient Problems: All Active Problems Urinary retention (Acute) R33.9 - Assessment Assessment: Patient is awake, alert, calm, in no acute distress. Dx: UTI, MR, Down syndrome , Pericardial effusion. Abdominal pain improved. - Plan Plan: Echocardiogram done. Pelvic US unremarkable. FOB normal. Patient will be discharge.
--- NOTE | 2016-08-31 20:38 | Discharge Summary ---
CHIEF COMPLAINT: Abdominal pain. HISTORY OF PRESENT ILLNESS: This is the case of a 45-year-old white female with mental retardation and Down syndrome. The patient was brought by set rider secondary to abdominal pain During examination in ER, it was found that the patient had UTI and hyponatremia. HOSPITAL COURSE AND TREATMENT: This patient was admitted in the medical-surgical floor. She was started on an IV normal saline, ceftriaxone. She was continued with home medications. She had a regular diet and consult with Cardiology was done. With this treatment and after pain improvement after 5 days in the hospital, it was considered the patient received the maximum benefit of hospitalization and she could be sent home to continue care with primary care physician. 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 DISPOSITION: The patient is sent back to board and skilled nursing. DIAGNOSES: 1. Urinary tract infection. 2. Pericardial effusion. 3. Chronic constipation. 4. Mental retardation. 5. Down Syndrome. 6. Ovarian cysts. JOB# [id number]
== END 2016-08-22 11:20 | disposition home or self-care (01) | DRG 690 ==
LOC: ER 09:05 → MSI 11:15
PROVIDERS: ADMIT General Practice; ATTEND General Practice
DX: N39.0 Urinary tract infection, site not specified (principal); I31.3 Pericardial effusion (noninflammatory); E87.1 Hypo-osmolality and hyponatremia; N83.209 Unspecified ovarian cyst, unspecified side; Q90.9 Down syndrome, unspecified; F79 Unspecified intellectual disabilities; E78.5 Hyperlipidemia, unspecified; K21.9 Gastro-esophageal reflux disease without esophagitis; K59.00 Constipation, unspecified; N13.30 Unspecified hydronephrosis; E03.9 Hypothyroidism, unspecified; Z87.11 Personal history of peptic ulcer disease
CPT/HCPCS: 36415-UA; 71010-TC; 76856-TC; 80053-TC; 81001-TC; 81025-TC; 82270-TC; 83605; 84443-TC; 84484-TC; 85007-TC; 85025-TC; 85027-TC; 87086-90; 93005; 94640; 94760; J0696; J7030; J7613; Z7610

== ENCOUNTER 2016-11-17 19:34 | Emergency (ER) | payer MEDICARE, MEDICAID ==
--- NOTE | 2016-11-17 20:35 | ED Physician Chart ---
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 Pt is a downs synd pt w poor history ability. pt had her gandhi changed last 5 days ago. she began complaining of pain at gandhi site since this afternoon. staff at her alf suspect it might have been yanked on by accident during her shower late this am. pt unable to confirm/deny hx. no blood seen at urethra. no fever. no n/v/d. no c/o abd p. eating ok today. no back pain. Allergies:: Allergies Allergy/AdvReac Type Severity Reaction Status Date / Time No Known Allergies Allergy Verified 08/18/16 09:14 Vitals:: Vital Signs - 8 hr 11/17/16 19:45 Temp 98.7 F HR 77 RR 19 BP 126/74 O2 Sat % 97 Historian:: Patient, Other (caregiver) Review of Systems - Review of Systems General/Constitutional: No fever, No chills, No weight loss, No weakness, No diaphoresis, No edema, No loss of appetite Skin: No skin lesions, No rash, No bruising Head: No headache, No light-headedness Eyes: No loss of vision, No pain, No diplopia ENT: No earache, No nasal drainage, No sore throat, No tinnitus Neck: No neck pain, No swelling, No thyromegaly, No stiffness, No mass noted Cardio Vascular: No chest pain, No palpitations, No PND, No orthopnea, No edema Pulmonary: No SOB, No cough, No sputum, No wheezing GI: No nausea, No vomiting, No diarrhea, No pain, No melena, No hematochezia, No constipation, No hematemesis G/U: No dysuria, No frequency, No hematuria, Other (pain at urethra) 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 vaginal discharge, No abnormal vaginal bleed Musculoskeletal: No bone or joint pain, No back pain, No muscle pain Endocrine: No polyuria, No polydipsia Psychiatric: No prior psych history, No depression, No anxiety, No suicidal ideation Hematopoietic: No bruising, No lymphadenopathy Allergic/Immuno: No urticaria, No angioedema Neurological: No syncope, No focal symptoms, No weakness, No paresthesia, No headache, No seizure, No dizziness, No confusion, No vertigo Past Medical History - Past Medical History Past Medical History: Other (u retention, down syndrome) Social History: Care Facility Medication: Reviewed Family Medical History - Family Member Mother History Unknown: Yes Physical Exam - Physical Examination General/Constitutional: Awake, Well-developed, well-nourished, Alert, No distress, GCS 15, Non-toxic appearing, Ambulatory Other Gen/Cons comments:: short stature w broad chest. alert and oriented but poor historian. nontoxic. Head: Atraumatic Eyes: Lids, conjuctiva normal, PERRL, EOMI Skin: Nl inspection, No rash, No skin lesions, No ecchymosis, Well hydrated, No lymphadenopathy ENMT: External ears, nose nl, Nasal exam nl, Lips, teeth, gums nl Neck: Nontender, Full ROM w/o pain, No JVD, No nuchal rigidity, No bruit, No mass, No stridor Respiratory: Nl effort/Exclusion, Clear to Auscultation, No Wheeze/Rhonchi/Rales Cardio Vascular: RRR, No murmur, gallop, rubs, NL S1 S2 GI: No tenderness/rebounding/guarding, No organomegaly, No hernia, Normal BS's, Nondistended, No mass/bruits, No McBurney tenderness : No CVA tenderness, NL external genitalia Other comments:: gandhi insert at urethra looks wnl. no blood. no vis bruising. Extremities: No tenderness or effusion, Full ROM, normal strength in all extremities, No edema, Normal digits & nails Neuro/Psych: Alert/oriented, DTR's symmetric, Normal sensory exam, Normal motor strength, Judgement/insight normal, Mood normal, Normal gait, No focal deficits Misc: normal gait, Normal back, No paraspinal tenderness Other:: pleasant alert nontoxic..cooperative Labs/Radiology/EKG Results - Lab Results Results: Laboratory Tests 11/17/16 11/17/16 20:45 20:45 Urine Source CATH Urine Color STRAW Urine Clarity CLEAR Urine pH 7.5 Ur Specific [place] 1.010 Urine Protein NEGATIVE Urine Glucose (UA) NEGATIVE Urine Ketones NEGATIVE Urine Blood LARGE H Urine Nitrate NEGATIVE Urine Bilirubin NEGATIVE Urine Urobilinogen 0.2 Ur Leukocyte Esterase MODERATE H Urine RBC 10-25 H Urine WBC 6-10 H Ur Epithelial Cells NONE SEEN Urine Bacteria NONE SEEN Urine Test NEGATIVE ED Septic Shock - . Is Septic Shock (SBP<90, OR Lactate>4 mmol\L) present?: No - <6hrs of presentation: Vital Signs: Vital Signs - 8 hr 11/17/16 19:45 Temp 98.7 F HR 77 RR 19 BP 126/74 O2 Sat % 97 Reassessment (Disposition) - Reassessment Reassessment:: pt has uti by labs...this likely explains pt discomfort. gandhi cath was removed and replaced w fresh gandhi to insure malplacement was not cause of discomfort. gandhi replaced wo incident. no blood no geni discomfort. will rx macrobid and pyridium for uti/dysuria see pmd in 2 d for rechk. ret if worse. Reassessment Condition:: Improved - Diagnosis Diagnosis:: uti / dysuria gandhi cath change - Patient Disposition Discharge/Transfer:: Home Condition at Disposition:: Improved
[2016-11-17 21:30] LABS: URINE BILIRUBIN NEGATIVE (NEGATIVE); URINE BLOOD LARGE (NEGATIVE); URINE COLOR STRAW; URINE GLUCOSE (UA) NEGATIVE (NEGATIVE); URINE KETONE NEGATIVE (NEGATIVE); URINE PH 7.5; URINE PROTEIN NEGATIVE (NEGATIVE); URINE UROBILINOGEN 0.2 E.U./dL (0.2 - 1.0)
[2016-11-17 21:31] LABS: URINE BACTERIA NONE SEEN /hpf (NONE SEEN); URINE EPITHELIAL CELLS NONE SEEN /lpf (FEW)
== END 2016-11-17 22:11 ==
LOC: ER 19:34
DX: Z46.6 Encounter for fitting and adjustment of urinary device (principal)
CPT/HCPCS: 81001-TC; 81025-TC; Z7502; Z7610

== ENCOUNTER 2017-12-21 09:21 | Inpatient (IN) | payer MEDICARE, MEDICAID ==
[2017-12-21] MEDS ORDERED: Sodium Chloride 0.9% 1,000 ML IV ONE (09:55)
--- NOTE | 2017-12-21 10:07 | ED Physician Chart ---
ED Chief Complaint/HPI - Patient Information Date Seen:: 12/21/17 Time Seen:: 09:30 Chief Complaint:: Abdominal Pain History of Present Illness:: onset x one day of intermittent, crampy, diffuse, generalized abdominal pain, N/ V/D x 10; no report of trauma, H/As, S/T, neck pain, C/P, cough, SOB, A/C, bleeding, fever, chills, or urinary s/s Allergies:: Allergies Allergy/AdvReac Type Severity Reaction Status Date / Time No Known Allergies Allergy Verified 08/18/16 09:14 Vitals:: Vital Signs - 8 hr 12/21/17 09:34 Temp 98.1 F HR 82 RR 16 BP 116/71 O2 Sat % 99 Historian:: Patient, Friend Review:: Nurse's Note Reviewed ED Review of Systems - Review of Systems General/Constitutional: No fever, No chills, No weight loss, No weakness, No diaphoresis, No edema, No loss of appetite Skin: No skin lesions, No rash, No bruising Head: No headache, No light-headedness Eyes: No loss of vision, No pain, No diplopia ENT: No earache, No nasal drainage, No sore throat, No tinnitus Neck: No neck pain, No swelling, No thyromegaly, No stiffness, No mass noted Cardio Vascular: No chest pain, No palpitations, No PND, No orthopnea, No edema Pulmonary: No SOB, No cough, No sputum, No wheezing GI: Nausea, Vomiting, Diarrhea, Pain, No melena, No hematochezia, No constipation, No hematemesis G/U: No dysuria, No frequency, No hematuria, No nacturia Mold 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: No vaginal discharge, No abnormal vaginal bleed, No contraction Musculoskeletal: No bone or joint pain, No back pain, No muscle pain Endocrine: No polyuria, No polydipsia Psychiatric: No prior psych history, No depression, No anxiety, No suicidal ideation, No homicidal ideation, No auditory hallucination, No visual hallucination Hematopoietic: No bruising, No lymphadenopathy Allergic/Immuno: No urticaria, No angioedema Neurological: No syncope, No focal symptoms, No weakness, No paresthesia, No headache, No seizure, No dizziness, No confusion, No vertigo ED Past Medical History - Past Medical History Obtainable: Yes Past Medical History: PUD/GERD, Thyroid disorder, Other (Down's Syndrome) Family History: HTN Social History: Non Smoker, No Alcohol, No Drug Use, Single, Care Facility Surgical History: None Psychiatricy History: None Medication: Reviewed Family Medical History - Family Member Mother History Unknown: Yes ED Physical Exam - Physical Examination General/Constitutional: Awake, Well-developed, well-nourished, Alert, No distress, GCS 15, Non-toxic appearing, Ambulatory Head: Atraumatic Eyes: Lids, conjuctiva normal, PERRL, EOMI Skin: Nl inspection, No rash, No skin lesions, No ecchymosis, Well hydrated, No lymphadenopathy ENMT: External ears, nose nl, TM canals nl, Nasal exam nl, Lips, teeth, gums nl , Oropharynx nl, Tonsils nl Neck: Nontender, Full ROM w/o pain, No JVD, No nuchal rigidity, No bruit, No mass, No stridor Respiratory: Nl effort/Exclusion, Clear to Auscultation, No Wheeze/Rhonchi/Rales Cardio Vascular: RRR, No murmur, gallop, rubs, NL S1 S2, Carotid/Femoral/Distal pulses equal bilaterally GI: No tenderness/rebounding/guarding, No organomegaly, No hernia, Normal BS's, Nondistended, No mass/bruits, No McBurney tenderness, Rectum exam nl : No CVA tenderness Extremities: No tenderness or effusion, Full ROM, normal strength in all extremities, No edema, Normal digits & nails Neuro/Psych: Alert/oriented, DTR's symmetric, Normal sensory exam, Normal motor strength, Judgement/insight normal, Mood normal, Normal gait, No focal deficits Misc: Normal back, No paraspinal tenderness ED Labs/Radiology/EKG Results - Lab Results Comments:: Na+:128; U/A: + Pyuria; WBC: 4.2 - EKG Interpretations EKG Time:: 10:00 Rate & Rhythm: 76; NSR Comments:: non-specific st-t changes ED Septic Shock - . Is Septic Shock (SBP<90, OR Lactate>4 mmol\L) present?: No - <6hrs of presentation: Vital Signs: Vital Signs - 8 hr 12/21/17 09:34 Temp 98.1 F HR 82 RR 16 BP 116/71 O2 Sat % 99 ED Reassessment (Disposition) - Reassessment Reassessment Condition:: Improved - Diagnosis Diagnosis:: Dx: Abdominal Pain; Hyponatremia; N/V/D; AGE; UTI; Sepsis; Dehydration - Aftercare/Follow up Instructions Aftercare/Follow-Up Instructions:: Counseled pt regarding lab results/diagnosis & need follow up, Counseled pt & family regarding lab results/diagnosis & need follow up - Patient Disposition Discharge/Transfer:: Acute Care w/in this hosp Accepting Physician:: Dr. Lopez Time Called:: 1100 Time Responded:: 11:00 Admitted to:: Med/Surg Spoke to:: Dr. Lopez Admitting Medical Physician:: Dr. Lopez Condition at Disposition:: Stable, Improved
[2017-12-21 10:15] LABS: % BASOPHILS 0.2 % (0.0-2.0); % EOSINOPHILS 0.4 % (0.0-5.0); % LYMPHOCYTES 12.4 % (20.0-50.0); % MONOCYTES 5.9 % (2.0-10.0); % NEUTROPHILS 81.1 % (40.0-80.0); HEMATOCRIT 35.6 % (41.0-60); HEMOGLOBIN 12.1 gm/dL (12-16); LYMPHOCYTE ABSOLUTE 0.5 Th/cmm (1.5-3.0); MEAN CELL VOLUME 102.2 fl (81-100); MEAN CORPUSCULAR HEMOGLOBIN 34.8 pg (27.0-31.0); MEAN PLATELET VOLUME 7.4 fl; MONOCYTE ABSOLUTE 0.2 Th/cmm (0.3-1.0); NEUTROPHILE ABSOLUTE 3.5 Th/cmm (1.8-8.0); PLATELET COUNT 197 Th/cmm (150-400); RED BLOOD COUNT 3.48 Mil/cmm (3.80-5.10); RED CELL DISTRIBUTION WIDTH 11.5 % (11.5-20.0); WHITE BLOOD COUNT 4.2 Th/cmm (4.8-10.8)
[2017-12-21 10:24] LABS: INR 1.02 (0.5-1.4); PROTHROMBIN TIME (TEST) 10.6 SECONDS (9.5-11.5)
[2017-12-21 10:35] LABS: ALB/GLOB RATIO 1.3 (1.0-1.8); ALKALINE PHOSPHATASE 92 U/L (34-104); AMYLASE SERUM < 10 U/L (29-103); ANION GAP 10.9 (7.0-16.0); BILIRUBIN,TOTAL 0.4 mg/dL (0.3-1.0); BUN - UREA NITROGEN 14 mg/dL (7-25); CALCIUM SERUM 9.1 mg/dL (8.6-10.3); CARBON DIOXIDE 25.9 mEq/L (21.0-31.0); CHLORIDE 95 mEq/L (98-107); CHOLESTEROL 156 mg/dL (<200); CREATININE KINASE 123 U/L (30-223); GFR AFRICAN-AMERICAN > 60.0 ml/min (>90); GFR NON AFRICAN-AMERICAN > 60.0 ml/min; GLUCOSE 124 mg/dL (70-105); HDL -HIGH DENSITY LIPOPROTEIN 61 mg/dL (23-92); LIPASE 4 U/L (11-82); POTASSIUM SERUM 3.8 mEq/L (3.5-5.1); SGOT 19 U/L (13-39); SGPT/ALT 10 U/L (7-52); SODIUM SERUM 128 mEq/L (136-145); TRIGLYCERIDES 49 mg/dL (<150)
[2017-12-21 12:03] LABS: URINE MICROSCOPIC INDICATED? YES; URINE SOURCE FOLEY PORT
[2017-12-21 12:07] LABS: URINE BILIRUBIN NEGATIVE (NEGATIVE); URINE BLOOD SMALL (NEGATIVE); URINE CLARITY SLIGHTLY HAZY (CLEAR); URINE COLOR YELLOW; URINE GLUCOSE (UA) NEGATIVE (NEGATIVE); URINE KETONE NEGATIVE (NEGATIVE); URINE LEUKOCYTE ESTERASE LARGE (NEGATIVE); URINE NITRATE NEGATIVE (NEGATIVE); URINE PROTEIN NEGATIVE (NEGATIVE); URINE UROBILINOGEN 0.2 E.U./dL (0.2 - 1.0)
[2017-12-21 12:14] LABS: URINE RBC 0-2 /hpf (0-5)
[2017-12-21 12:17] LABS: URINE BACTERIA MANY /hpf (NONE SEEN); URINE EPITHELIAL CELLS FEW /lpf (FEW); URINE WBC 25-50 /hpf (0-5)
[2017-12-21] MEDS ORDERED: cefTRIAXone 1 GM in Sodium Chloride 0.9% 50 ML IV ONE (12:53)
--- NOTE | 2017-12-21 14:07 | Diagnostic Imaging Report ---
CT scan abdomen and pelvis without intravenous contrast HISTORY: Pain Total DLP equals 577 CTDI equals 12.2 Axial sections were obtained from the xiphoid process down to the pubic symphysis. The exam is compared with prior study of 08/18/2016. The liver exhibits a homogeneous parenchyma. No focal lesions. The spleen appears normal. No focal amenities seen in the region of the pancreas. The left kidney is diminished in size. There is moderate bilateral hydronephrosis along with mild dilatation of the visualized portions of the ureters. Changes somewhat more pronounced than on the prior examination. Exact etiology uncertain. The exam of the pelvis demonstrates a contracted urinary bladder associated with a Murray catheter. No discrete abnormal masses are seen. No abnormal fluid collections. Mildly distended stool-filled large bowel is seen. IMPRESSION: 1. Moderate bilateral hydronephrosis and dilatation of the visualized portions of the ureters. Etiology uncertain. Findings are somewhat more pronounced than on the prior study of August 18, 2016. 2. Contracted urinary bladder associated with a Murray catheter 3. Mildly distended stool-filled large bowel
[2017-12-21] MEDS: Sodium Chloride 0.9% 1,000 ML IV SCH ×2 (14:19→23:56)
[2017-12-21 14:50] VITALS: BP 119/69
[2017-12-22 05:27] LABS: % EOSINOPHILS 2.4 % (0.0-5.0); % LYMPHOCYTES 30.2 % (20.0-50.0); % MONOCYTES 9.8 % (2.0-10.0); % NEUTROPHILS 55.6 % (40.0-80.0); BASOPHILE ABSOLUTE 0.1 Th/cumm (0-0.2); EOSINOPHILE ABSOLUTE 0.1 Th/cmm (0.1-0.4); HEMATOCRIT 32.6 % (41.0-60); HEMOGLOBIN 11.3 gm/dL (12-16); LYMPHOCYTE ABSOLUTE 0.8 Th/cmm (1.5-3.0); MEAN CELL VOLUME 100.9 fl (81-100); MEAN CORPUSCULAR HGB CONC 34.7 pg (28.0-36.0); MEAN PLATELET VOLUME 7.2 fl; MONOCYTE ABSOLUTE 0.3 Th/cmm (0.3-1.0); NEUTROPHILE ABSOLUTE 1.3 Th/cmm (1.8-8.0); PLATELET COUNT 184 Th/cmm (150-400); RED BLOOD COUNT 3.23 Mil/cmm (3.80-5.10); RED CELL DISTRIBUTION WIDTH 11.7 % (11.5-20.0)
[2017-12-22 05:43] LABS: WHITE BLOOD COUNT 2.6 Th/cmm (4.8-10.8)
[2017-12-22 05:50] LABS: ALB/GLOB RATIO 1.2 (1.0-1.8); ALBUMIN 3.4 gm/dL (3.7-5.3); ALKALINE PHOSPHATASE 76 U/L (34-104); ANION GAP 9.3 (7.0-16.0); BILIRUBIN,TOTAL 0.4 mg/dL (0.3-1.0); BUN - UREA NITROGEN 10 mg/dL (7-25); CALCIUM SERUM 8.5 mg/dL (8.6-10.3); CARBON DIOXIDE 24.6 mEq/L (21.0-31.0); CHLORIDE 101 mEq/L (98-107); CREATININE - SERUM 0.8 mg/dL (0.6-1.2); GFR AFRICAN-AMERICAN > 60.0 ml/min (>90); GFR NON AFRICAN-AMERICAN > 60.0 ml/min; GLUCOSE 115 mg/dL (70-105); POTASSIUM SERUM 3.9 mEq/L (3.5-5.1); SGOT 17 U/L (13-39); SGPT/ALT 11 U/L (7-52); SODIUM SERUM 131 mEq/L (136-145); TOTAL PROTEIN,SERUM 6.3 gm/dL (6.0-8.3)
[2017-12-22] MEDS: Levothyroxine 0.075 Mg Tab PO SCH (06:43)
[2017-12-22] MEDS: cefTRIAXone 1 GM in Sodium Chloride 0.9% 50 ML IV SCH (08:21)
[2017-12-22] MEDS: Multivitamin Tab PO SCH (08:22)
--- NOTE | 2017-12-22 12:40 | History and Physical ---
History of Present Illness - HPI Chief Complaint: Abdominal pain HPI: patient refer that x one day she has having abdominal pain. During ER evalution was found that she has Sepsis due to UTI. 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.) GI: Report: No Pertinent Hx Psych: Report: Other (Mental retardation) Musculoskeletal: Report: No Pertinent Hx Rheumatologic: Report: No pertinent Hx Infectious Disease: Report: No Pertinent Hx Renal/: Report: No Pertinent Hx Endocrine: Report: No Pertinent Hx Dermatology: Report: No Pertinent Hx - Past Surgical History Past Surgical History: No pertinent Hx Family Medical History - Family Member Mother History Unknown: Yes Social History Smoke: No Alcohol: None Drugs: None Lives: Senior Care Domestic Violence: Negative - Medications Home Medications: Home Medication Medication Instructions Recorded Type Ascorbic Acid [Vitamin C] 1 tab PO DAILY 12/21/17 History Benztropine [Cogentin*] 1 tab PO BID 12/21/17 History Cyanocobalamin (Vitamin B-12) 1 tab PO DAILY 12/21/17 History [Vitamin B-12] Docusate Sodium 1 tab PO BID 12/21/17 History Famotidine 1 tab PO BID 12/21/17 History Ferrous Sulfate [Feosol*] 1 tab PO DAILY 12/21/17 History Ketoconazole 120 ml TP 2XW 12/21/17 History Levothyroxine [Synthroid] 1 tab PO DAILY 12/21/17 History Multivitamin [Multivitamins] 1 tab PO DAILY 12/21/17 History Paroxetine HCl 1 tab PO DAILY 12/21/17 History Sulfamethoxazole/TMP [Bactrim Ds] 1 tab PO BID 12/21/17 History Ziprasidone HCl [Geodon] 1 tab PO BID 12/21/17 History - Allergies Allergies/Adverse Reactions: Allergies Allergy/AdvReac Type Severity Reaction Status Date / Time No Known Allergies Allergy Verified 08/18/16 09:14 Review of Systems - Review of Systems Constitutional: Report: No Significant Eyes: Report: No Significant ENT: Report: No Significant Respiratory: Report: No Significant Cardiovascular: Report: No Significant Gastrointestinal: Report: Abdominal Pain Genitourinary: Report: Dysuria Musculoskeletal: Report: No Significant Skin: Report: No Significant Neurological: Report: Weakness Physical Exam - Physical Exam HEENT: Report: Ears Nose Throat within normal limits Neck: Report: Within normal limits Cardiovascular Systems: Report: Regular, Rate and Rhythm Respiratory: Report: Breath Sounds are within normal limits Abdomen: Report: Tender to palpation Back: Report: Inspection of back is within normal limits. Extremities: Report: Non-tender to palpation. Skin: Report: Color of skin is within normal limits, Warm, Dry Neuro/Psych: Report: Disoriented to name time or place - Lab Results All Lab Results last 24 hours: Laboratory Results - last 24 hr 12/21/17 12/22/17 12/22/17 14:05 05:15 05:15 WBC 2.6 L RBC 3.23 L Hgb 11.3 L Hct 32.6 L MCV 100.9 H MCH 35.0 H MCHC Differential 34.7 RDW 11.7 Plt Count 184 MPV 7.2 Neutrophils % 55.6 Lymphocytes % 30.2 Monocytes % 9.8 Eosinophils % 2.4 Basophils % 2.0 Sodium 131 L Potassium 3.9 Chloride 101 Carbon Dioxide 24.6 Anion Gap 9.3 BUN 10 Creatinine 0.8 Est GFR ( Amer) > 60.0 Est GFR (Non-Af Amer) > 60.0 BUN/Creatinine Ratio 12.5 Glucose 115 H POC Glucose 99 Calcium 8.5 L Total Bilirubin 0.4 AST 17 ALT 11 Alkaline Phosphatase 76 Total Protein 6.3 Albumin 3.4 L Globulin 2.9 Albumin/Globulin Ratio 1.2 - Assessment Assessment: Patient is awake, alert, calm, in no acute distress. Dx: Sepsis, UTI, Hyponatremia, Dehydration, Down syndrome, MR. - Plan Plan: Patient is IV NS, IV AB, regular diet, and continue with SNF meds. Will continue to monitor.
[2017-12-22] MEDS: Sodium Chloride 0.9% 1,000 ML IV SCH (13:30)
[2017-12-22] MEDS: KETOCONAZOLE 2% 120 ML SHAMP TP SCH (13:31)
[2017-12-23] MEDS: Sodium Chloride 0.9% 1,000 ML IV SCH ×2 (01:05→12:24)
[2017-12-23 06:09] LABS: ALB/GLOB RATIO 1.2 (1.0-1.8); ALBUMIN 3.4 gm/dL (3.7-5.3); ALKALINE PHOSPHATASE 78 U/L (34-104); ANION GAP 9.1 (7.0-16.0); BILIRUBIN,TOTAL 0.4 mg/dL (0.3-1.0); BUN - UREA NITROGEN 8 mg/dL (7-25); CALCIUM SERUM 8.4 mg/dL (8.6-10.3); CARBON DIOXIDE 22.9 mEq/L (21.0-31.0); CHLORIDE 99 mEq/L (98-107); CREATININE - SERUM 0.8 mg/dL (0.6-1.2); GFR AFRICAN-AMERICAN > 60.0 ml/min (>90); GFR NON AFRICAN-AMERICAN > 60.0 ml/min; GLUCOSE 118 mg/dL (70-105); SGOT 17 U/L (13-39); SGPT/ALT 9 U/L (7-52); SODIUM SERUM 127 mEq/L (136-145); TOTAL PROTEIN,SERUM 6.2 gm/dL (6.0-8.3)
[2017-12-23 06:13] LABS: LYMPHOCYTE ABSOLUTE 0.8 Th/cmm (1.5-3.0); MONOCYTE ABSOLUTE 0.3 Th/cmm (0.3-1.0)
[2017-12-23 06:18] LABS: % BASOPHILS 0.8 % (0.0-2.0); % EOSINOPHILS 0.7 % (0.0-5.0); % LYMPHOCYTES 24.6 % (20.0-50.0); % MONOCYTES 7.6 % (2.0-10.0); % NEUTROPHILS 66.3 % (40.0-80.0); HEMATOCRIT 32.8 % (41.0-60); HEMOGLOBIN 11.3 gm/dL (12-16); MEAN CELL VOLUME 101.2 fl (81-100); MEAN CORPUSCULAR HGB CONC 34.6 pg (28.0-36.0); MEAN PLATELET VOLUME 7.3 fl; NEUTROPHILE ABSOLUTE 2.3 Th/cmm (1.8-8.0); PLATELET COUNT 206 Th/cmm (150-400); RED BLOOD COUNT 3.24 Mil/cmm (3.80-5.10); RED CELL DISTRIBUTION WIDTH 11.4 % (11.5-20.0)
[2017-12-23 06:21] LABS: WHITE BLOOD COUNT 3.4 Th/cmm (4.8-10.8)
[2017-12-23] MEDS: Levothyroxine 0.075 Mg Tab PO SCH (06:48)
[2017-12-23] MEDS: Multivitamin Tab PO SCH (08:35)
[2017-12-23] MEDS: cefTRIAXone 1 GM in Sodium Chloride 0.9% 50 ML IV SCH (08:39)
--- NOTE | 2017-12-23 08:56 | General Progress Note ---
Subjective - Review of Systems Service Date: 12/23/17 Subjective: I am fine Objective - Results Result Diagrams: 12/23/17 05:35 12/23/17 05:35 Recent Labs: Laboratory Last Values WBC 3.4 Th/cmm (4.8-10.8) L 12/23/17 05:35 RBC 3.24 Mil/cmm (3.80-5.10) L 12/23/17 05:35 Hgb 11.3 gm/dL (12-16) L 12/23/17 05:35 Hct 32.8 % (41.0-60) L 12/23/17 05:35 MCV 101.2 fl (81-100) H 12/23/17 05:35 MCH 35.0 pg (27.0-31.0) H 12/23/17 05:35 MCHC Differential 34.6 pg (28.0-36.0) 12/23/17 05:35 RDW 11.4 % (11.5-20.0) L 12/23/17 05:35 Plt Count 206 Th/cmm (150-400) 12/23/17 05:35 MPV 7.3 fl 12/23/17 05:35 Neutrophils % 66.3 % (40.0-80.0) 12/23/17 05:35 Lymphocytes % 24.6 % (20.0-50.0) 12/23/17 05:35 Monocytes % 7.6 % (2.0-10.0) 12/23/17 05:35 Eosinophils % 0.7 % (0.0-5.0) 12/23/17 05:35 Basophils % 0.8 % (0.0-2.0) 12/23/17 05:35 PT 10.6 SECONDS (9.5-11.5) 12/21/17 10:00 INR 1.02 (0.5-1.4) 12/21/17 10:00 Sodium 127 mEq/L (136-145) L 12/23/17 05:35 Potassium 4.0 mEq/L (3.5-5.1) 12/23/17 05:35 Chloride 99 mEq/L (98-107) 12/23/17 05:35 Carbon Dioxide 22.9 mEq/L (21.0-31.0) 12/23/17 05:35 Anion Gap 9.1 (7.0-16.0) 12/23/17 05:35 BUN 8 mg/dL (7-25) 12/23/17 05:35 Creatinine 0.8 mg/dL (0.6-1.2) 12/23/17 05:35 Est GFR ( Amer) > 60.0 ml/min (>90) 12/23/17 05:35 Est GFR (Non-Af Amer) > 60.0 ml/min 12/23/17 05:35 BUN/Creatinine Ratio 10.0 12/23/17 05:35 Glucose 118 mg/dL (70-105) H 12/23/17 05:35 POC Glucose 99 MG/DL (70 - 105) 12/21/17 14:05 Calcium 8.4 mg/dL (8.6-10.3) L 12/23/17 05:35 Total Bilirubin 0.4 mg/dL (0.3-1.0) 12/23/17 05:35 AST 17 U/L (13-39) 12/23/17 05:35 ALT 9 U/L (7-52) 12/23/17 05:35 Alkaline Phosphatase 78 U/L (34-104) 12/23/17 05:35 Creatine Kinase 123 U/L (30-223) 12/21/17 10:00 Troponin I 0.01 ng/mL (0.01-0.05) 12/21/17 10:00 B-Natriuretic Peptide 19.5 pg/mL (5.0-100.0) 12/21/17 10:00 Total Protein 6.2 gm/dL (6.0-8.3) 12/23/17 05:35 Albumin 3.4 gm/dL (3.7-5.3) L 12/23/17 05:35 Globulin 2.8 gm/dL 12/23/17 05:35 Albumin/Globulin Ratio 1.2 (1.0-1.8) 12/23/17 05:35 Triglycerides 49 mg/dL (<150) 12/21/17 10:00 Cholesterol 156 mg/dL (<200) 12/21/17 10:00 LDL Cholesterol Direct 80 mg/dL (75-193) 12/21/17 10:00 HDL Cholesterol 61 mg/dL (23-92) 12/21/17 10:00 Amylase < 10 U/L (29-103) L 12/21/17 10:00 Lipase 4 U/L (11-82) L 12/21/17 10:00 Serum , Qual NEGATIVE (NEGATIVE) 12/21/17 10:00 Urine Source [place] 12/21/17 11:40 Urine Color YELLOW 12/21/17 11:40 Urine Clarity SLIGHTLY HAZY (CLEAR) 12/21/17 11:40 Urine pH 7.0 (4.6 - 8.0) 12/21/17 11:40 Ur Specific [place] 1.010 (1.005-1.030) 12/21/17 11:40 Urine Protein NEGATIVE mg/dL (NEGATIVE) 12/21/17 11:40 Urine Glucose (UA) NEGATIVE mg/dL (NEGATIVE) 12/21/17 11:40 Urine Ketones NEGATIVE mg/dL (NEGATIVE) 12/21/17 11:40 Urine Blood SMALL (NEGATIVE) H 12/21/17 11:40 Urine Nitrate NEGATIVE (NEGATIVE) 12/21/17 11:40 Urine Bilirubin NEGATIVE (NEGATIVE) 12/21/17 11:40 Urine Urobilinogen 0.2 E.U./dL (0.2 - 1.0) 12/21/17 11:40 Ur Leukocyte Esterase LARGE (NEGATIVE) H 12/21/17 11:40 Urine RBC 0-2 /hpf (0-5) 12/21/17 11:40 Urine WBC 25-50 /hpf (0-5) H 12/21/17 11:40 Ur Epithelial Cells FEW /lpf (FEW) 12/21/17 11:40 Urine Bacteria MANY /hpf (NONE SEEN) H 12/21/17 11:40 - Physical Exam Vitals and I&O: Vital Signs Temp 97.9 F 12/23/17 07:37 Pulse 86 12/23/17 07:37 Resp 18 12/23/17 07:37 BP 139/87 12/23/17 07:37 Pulse Ox 94 12/23/17 07:37 Intake & Output 12/22/17 12/23/17 12/23/17 18:59 06:59 18:59 Intake Total 1450 1600 Output Total 3600 Balance 1450 -2000 Weight (lbs) 83.733 kg 85.23 kg Intake: Intake, IV Amount 1050 1000 Sodium Chloride 0.9% 1, 1000 1000 000 ml @ 100 mls/hr IV . Q10H [facility] Rx#:[id number] cefTRIAXone 1 gm In 50 Sodium Chloride 0.9% 50 ml @ 100 mls/hr IV Q24HR [facility] Rx#:[id number] Oral 400 600 Output: Urine 3600 Other: # Bowel Movements 1 1 Stool Characteristics Soft Weight Source Bedscale Bedscale Active Medications: Current Medications Ascorbic Acid (Vitamin C) 500 mg PO DAILY [facility] Stop: 02/20/18 08:59 Last Admin: 12/23/17 08:35 Dose: 500 mg Benztropine Mesylate (Cogentin) 0.5 mg PO BID [facility] Stop: 02/19/18 16:59 Last Admin: 12/23/17 08:35 Dose: 0.5 mg Cyanocobalamin (Vitamin B12) 1,000 mcg PO DAILY [facility] Stop: 02/20/18 08:59 Last Admin: 12/23/17 08:35 Dose: 1,000 mcg Docusate Sodium (Colace) 100 mg PO BID [facility] Stop: 02/19/18 16:59 Last Admin: 12/23/17 08:35 Dose: 100 mg Famotidine (Pepcid) 20 mg PO BID [facility] Stop: 02/19/18 16:59 Last Admin: 12/23/17 08:35 Dose: 20 mg Ceftriaxone Sodium 1 gm/ (Sodium Chloride) 50 mls @ 100 mls/hr IV Q24HR [facility] Stop: 02/20/18 08:59 Last Admin: 12/23/17 08:39 Dose: 100 mls/hr Sodium Chloride (Nacl 0.9%) 1,000 mls @ 75 mls/hr IV .[id number] [facility] Stop: 02/21/18 08:59 Ketoconazole (Nizoral) 120 ml TP 2XW [facility] Stop: 02/20/18 13:59 Last Admin: 12/22/17 13:31 Dose: 120 ml Ketorolac Tromethamine (Toradol) 15 mg IVP Q6HR PRN PRN Reason: Pain (Mild) Stop: 02/20/18 18:57 Last Admin: 12/23/17 08:35 Dose: 15 mg Levothyroxine Sodium (Synthroid) 0.075 mg PO QDAC [facility] Stop: 02/20/18 07:29 Last Admin: 12/23/17 06:48 Dose: 0.075 mg Multivitamins/Vitamin C (Theragran) 1 tab PO DAILY [facility] Stop: 02/20/18 08:59 Last Admin: 12/23/17 08:35 Dose: 1 tab Ondansetron HCl (Zofran) 4 mg IV Q6H PRN PRN Reason: Nausea / Vomiting Stop: 02/20/18 18:57 Last Admin: 12/22/17 19:53 Dose: 4 mg Paroxetine HCl (Paxil) 20 mg PO DAILY [facility]; Protocol Stop: 02/20/18 08:59 Sodium Chloride (Nacl Tab) 1 gm PO BID [facility] Stop: 02/21/18 08:59 Ziprasidone (Geodon) 80 mg PO BID [facility] Stop: 02/19/18 16:59 General: Alert, No acute distress HEENT: Atraumatic Cardiovascular: Regular rate Lungs: Clear to auscultation Abdomen: Bowel sounds, Soft Extremities: Other (No edema) Neurological: Normal gait Skin: Other (Warm and dry) Psych/Mental Status: Mental status NL - Procedures Procedures: Procedures Procedure Code Date CHANGE DRAINAGE DEVICE IN BLADDER, EXTERNAL APPROACH [id number] 03/30/15 INSERT BLADDER CATH COMPLEX 72529 03/02/15 INSERT TEMP BLADDER CATH [id number] 03/30/15 REPLACE INDWELLING CATH 57.95 03/02/15 Assessment/Plan - Assessment Assessment: Patient is awake, alert, calm, in no acute distress. Dx: Sepsis, UTI, Hyponatremia, Dehydration, Down syndrome, MR. - Plan Plan: Patient is IV NS, IV AB, regular diet, and continue with SNF meds. Will continue to monitor.
[2017-12-23 10:14] LABS: URINE MICROSCOPIC INDICATED? YES; URINE SOURCE CATH
[2017-12-23 10:18] LABS: URINE BILIRUBIN NEGATIVE (NEGATIVE); URINE BLOOD SMALL (NEGATIVE); URINE GLUCOSE (UA) NEGATIVE (NEGATIVE); URINE KETONE NEGATIVE (NEGATIVE); URINE LEUKOCYTE ESTERASE TRACE (NEGATIVE); URINE NITRATE NEGATIVE (NEGATIVE); URINE PROTEIN 30 mg/dL (NEGATIVE); URINE UROBILINOGEN 0.2 E.U./dL (0.2 - 1.0)
[2017-12-23 10:28] LABS: URINE CLARITY CLEAR (CLEAR); URINE COLOR YELLOW
[2017-12-23 10:30] LABS: URINE BACTERIA FEW /hpf (NONE SEEN); URINE EPITHELIAL CELLS FEW /lpf (FEW)
[2017-12-23] MEDS ORDERED: Guaifenesin DM 10 ML UDC PO PRN (13:54)
[2017-12-23] MEDS: KETOCONAZOLE 2% 120 ML SHAMP TP SCH (15:47)
[2017-12-23] MEDS ORDERED: Levofloxacin 750mg/150mL 750 MG/150 ML BAG IV SCH (18:00)
[2017-12-24] MEDS: Sodium Chloride 0.9% 1,000 ML IV SCH (05:54)
[2017-12-24 06:23] LABS: ALB/GLOB RATIO 1.3 (1.0-1.8); ALBUMIN 3.5 gm/dL (3.7-5.3); ALKALINE PHOSPHATASE 80 U/L (34-104); ANION GAP 8.9 (7.0-16.0); BILIRUBIN,TOTAL 0.4 mg/dL (0.3-1.0); BUN - UREA NITROGEN 8 mg/dL (7-25); CALCIUM SERUM 8.6 mg/dL (8.6-10.3); CARBON DIOXIDE 23.8 mEq/L (21.0-31.0); CHLORIDE 99 mEq/L (98-107); CREATININE - SERUM 0.8 mg/dL (0.6-1.2); GFR AFRICAN-AMERICAN > 60.0 ml/min (>90); GFR NON AFRICAN-AMERICAN > 60.0 ml/min; GLUCOSE 107 mg/dL (70-105); POTASSIUM SERUM 3.7 mEq/L (3.5-5.1); SGOT 17 U/L (13-39); SGPT/ALT 11 U/L (7-52); SODIUM SERUM 128 mEq/L (136-145); TOTAL PROTEIN,SERUM 6.3 gm/dL (6.0-8.3)
[2017-12-24] MEDS: Levothyroxine 0.075 Mg Tab PO SCH (06:49)
[2017-12-24 06:59] LABS: % BASOPHILS 0.6 % (0.0-2.0); % EOSINOPHILS 1.3 % (0.0-5.0); % LYMPHOCYTES 20.1 % (20.0-50.0); % MONOCYTES 12.3 % (2.0-10.0); % NEUTROPHILS 65.7 % (40.0-80.0); HEMATOCRIT 33.3 % (41.0-60); HEMOGLOBIN 11.7 gm/dL (12-16); LYMPHOCYTE ABSOLUTE 0.7 Th/cmm (1.5-3.0); MEAN CORPUSCULAR HEMOGLOBIN 35.7 pg (27.0-31.0); MEAN PLATELET VOLUME 7.5 fl; MONOCYTE ABSOLUTE 0.4 Th/cmm (0.3-1.0); NEUTROPHILE ABSOLUTE 2.3 Th/cmm (1.8-8.0); PLATELET COUNT 184 Th/cmm (150-400); RED BLOOD COUNT 3.27 Mil/cmm (3.80-5.10); RED CELL DISTRIBUTION WIDTH 11.3 % (11.5-20.0)
[2017-12-24 07:01] LABS: MEAN CELL VOLUME 101.8 fl (81-100); WHITE BLOOD COUNT 3.4 Th/cmm (4.8-10.8)
--- NOTE | 2017-12-24 09:06 | Discharge Summary ---
General Discharge Summary - Discharge Summary Date of Admission: 12/21/17 Admitting Diagnosis: Sepsis secodary to UTI, Dehydration, Down syndrome, MR Discharge Date: 12/24/17 Discharge Diagnosis: Sepsis secondary to UTI, Dehydration, Down syndrome, MR. Laboratory Findings: Laboratory Results - last 24 hr 12/23/17 12/24/17 12/24/17 10:00 05:30 05:30 WBC 3.4 L RBC 3.27 L Hgb 11.7 L Hct 33.3 L MCV 101.8 H MCH 35.7 H MCHC Differential 35.0 RDW 11.3 L Plt Count 184 MPV 7.5 Neutrophils % 65.7 Lymphocytes % 20.1 Monocytes % 12.3 H Eosinophils % 1.3 Basophils % 0.6 Sodium 128 L Potassium 3.7 Chloride 99 Carbon Dioxide 23.8 Anion Gap 8.9 BUN 8 Creatinine 0.8 Est GFR ( Amer) > 60.0 Est GFR (Non-Af Amer) > 60.0 BUN/Creatinine Ratio 10.0 Glucose 107 H Calcium 8.6 Total Bilirubin 0.4 AST 17 ALT 11 Alkaline Phosphatase 80 Total Protein 6.3 Albumin 3.5 L Globulin 2.8 Albumin/Globulin Ratio 1.3 Urine Source CATH Urine Color YELLOW Urine Clarity CLEAR Urine pH 7.0 Ur Specific [place] 1.010 Urine Protein 30 H Urine Glucose (UA) NEGATIVE Urine Ketones NEGATIVE Urine Blood SMALL H Urine Nitrate NEGATIVE Urine Bilirubin NEGATIVE Urine Urobilinogen 0.2 Ur Leukocyte Esterase TRACE H Urine RBC 5-10 H Urine WBC 2-5 Ur Epithelial Cells FEW Urine Bacteria FEW Condition at Discharge: Stable Disposition: Other Home Medications: Home Medication Medication Instructions Recorded Type Ascorbic Acid [Vitamin C] 1 tab PO DAILY 12/21/17 History Benztropine [Cogentin*] 1 tab PO BID 12/21/17 History Cyanocobalamin (Vitamin B-12) 1 tab PO DAILY 12/21/17 History [Vitamin B-12] Docusate Sodium 1 tab PO BID 12/21/17 History Famotidine 1 tab PO BID 12/21/17 History Ferrous Sulfate [Feosol*] 1 tab PO DAILY 12/21/17 History Ketoconazole 120 ml TP 2XW 12/21/17 History Levothyroxine [Synthroid] 1 tab PO QDAC 12/21/17 History Multivitamin [Multivitamins] 1 tab PO DAILY 12/21/17 History Paroxetine HCl 1 tab PO DAILY 12/21/17 History Sulfamethoxazole/TMP [Bactrim Ds] 1 tab PO BID 12/21/17 History Ziprasidone HCl [Geodon] 1 tab PO BID 12/21/17 History Inpatient Medications: Current Medications Ascorbic Acid (Vitamin C) 500 mg PO DAILY [facility] Stop: 02/20/18 08:59 Last Admin: 12/23/17 08:35 Dose: 500 mg Benztropine Mesylate (Cogentin) 0.5 mg PO BID [facility] Stop: 02/19/18 16:59 Last Admin: 12/23/17 17:11 Dose: Not Given Cyanocobalamin (Vitamin B12) 1,000 mcg PO DAILY [facility] Stop: 02/20/18 08:59 Last Admin: 12/23/17 08:35 Dose: 1,000 mcg Docusate Sodium (Colace) 100 mg PO BID [facility] Stop: 02/19/18 16:59 Last Admin: 12/23/17 17:11 Dose: Not Given Famotidine (Pepcid) 20 mg PO BID [facility] Stop: 02/19/18 16:59 Last Admin: 12/23/17 17:11 Dose: Not Given Guaifenesin/Dextromethorphan (Robitussin Dm) 10 ml PO Q6HR PRN PRN Reason: Cough Stop: 02/21/18 13:53 Sodium Chloride (Nacl 0.9%) 1,000 mls @ 75 mls/hr IV .[id number] [facility] Stop: 02/21/18 08:59 Last Admin: 12/24/17 05:54 Dose: 75 mls/hr Levofloxacin (Levaquin Pb) 750 mg in 150 mls @ 100 mls/hr IV Q24HR [facility] Stop: 02/21/18 17:59 Last Infusion: 12/23/17 20:40 Dose: Infused Ketoconazole (Nizoral) 120 ml TP 2XW [facility] Stop: 02/20/18 13:59 Last Admin: 12/23/17 15:47 Dose: Not Given Ketorolac Tromethamine (Toradol) 15 mg IVP Q6HR PRN PRN Reason: Pain (Mild) Stop: 02/20/18 18:57 Last Admin: 12/24/17 00:24 Dose: 15 mg Levothyroxine Sodium (Synthroid) 0.075 mg PO QDAC [facility] Stop: 02/20/18 07:29 Last Admin: 12/24/17 06:49 Dose: 0.075 mg Multivitamins/Vitamin C (Theragran) 1 tab PO DAILY [facility] Stop: 02/20/18 08:59 Last Admin: 12/23/17 08:35 Dose: 1 tab Ondansetron HCl (Zofran) 4 mg IV Q6H PRN PRN Reason: Nausea / Vomiting Stop: 02/20/18 18:57 Last Admin: 12/23/17 15:47 Dose: 4 mg Paroxetine HCl (Paxil) 20 mg PO DAILY [facility]; Protocol Stop: 02/20/18 08:59 Sodium Chloride (Nacl Tab) 1 gm PO BID [facility] Stop: 02/21/18 08:59 Last Admin: 12/23/17 17:12 Dose: Not Given Ziprasidone (Geodon) 80 mg PO BID [facility] Stop: 02/19/18 16:59 Activity: As Tolerated Discharge Diet: Regular Consults and Follow-Up: not on staff,PCP is [Primary Care Provider] - Consulting Speciality: Other (PCP) Instructions: Hyponatremia, [id number], Urinary Tract Infection, [id number] , Dehydration, Adult, [id number], Ciprofloxacin tablets
[2017-12-24] MEDS: Multivitamin Tab PO SCH (09:35)
--- NOTE | 2017-12-24 09:56 | Diagnostic Imaging Report ---
Exam: KUB of the abdomen HISTORY: Abdominal pain. Findings: Frontal examination of the abdomen was reviewed. The study demonstrates large amount fecal content throughout the colon with distention of proximal small bowel air consistent with ileus. Bony structures intact. No abnormal masses calcifications noted. IMPRESSION: Large amount fecal content, proximal distention small bowel loops suggestive of ileus. Follow-up exam is recommended
[2017-12-24] MEDS ORDERED: Maalox 30 mL Cup PO ONE (15:02)
[2017-12-24] MEDS ORDERED: Magnesium Citrate 1.75 GM/300 mL Bottle PO ONE (15:07)
[2017-12-24] MEDS: KETOCONAZOLE 2% 120 ML SHAMP TP SCH (15:22)
--- NOTE | 2017-12-25 09:49 | Consultation ---
DATE OF CONSULTATION: 12/24/2017 GASTROENTEROLOGY CONSULTATION REQUESTING PHYSICIAN: Dr. Adelfo Lopez REASON FOR CONSULTATION: Abdominal pain. HISTORY OF PRESENT ILLNESS: A 47-year-old female with Down syndrome whom we were asked to evaluate for epigastric abdominal pain, appears to be vague. She denies nausea, vomiting, diarrhea or constipation. She may not be the best historian. It is unclear whether she has had a previous endoscopy. PAST MEDICAL HISTORY: Notable for Down syndrome, UTI with sepsis, possible anemia, possible psych disorder. MEDICATIONS: Here are Tylenol, vitamin C, Cogentin, vitamin B12 orally, oral Colace, Pepcid, Robitussin p.r.n., ketaconazole by mouth, Toradol, Levaquin, Synthroid, multivitamin, Zofran, Paxil, IV fluids, and Geodon. ALLERGIES: No known drug allergies. SOCIAL HISTORY: No known tobacco, alcohol or drugs. FAMILY HISTORY: Noncontributory. REVIEW OF SYSTEMS: A comprehensive 12-point review of system was conducted and is only positive for those signs and symptoms present in the history of present illness. PHYSICAL EXAMINATION: VITAL SIGNS: Temperature 97.1, blood pressure 121/70, pulse of 68, respirations 18, O2 sat 97%. GENERAL: The patient is well-developed young female who appears in no acute distress. HEENT: Sclerae nonicteric. Oropharynx is clear. CARDIOVASCULAR: Regular rate and rhythm. LUNGS: Clear to auscultation bilaterally. ABDOMEN: Soft, mild epigastric tenderness to palpation. EXTREMITIES: No clubbing, cyanosis or edema. RECTAL: Deferred. LABORATORY AND IMAGING DATA: WBC slightly low at 3.4, hemoglobin is slightly low at 11.7, platelet count is 184, creatinine is 0.8. Liver enzymes are normal. Urinalysis shows a small amount of blood and trace leuko esterase, 5-[address] of the abdomen and pelvis done 3 days ago without contrast showed moderate bilateral hydronephrosis and dilation of the visualized portions of ureters of an uncertain etiology, contracted urinary bladder and mildly distended fluid-filled large bowel. A KUB done yesterday shows a large amount of fecal content with proximal distention of the small bowel loops suggestive of ileus. IMPRESSION: 1. Abdominal pain, rule out constipation versus ileus versus dyspepsia or gastritis or less likely GERD. 2. Down syndrome. 3. UTI. 4. Hydronephrosis with the contracted bladder, rule out urologic pathology. RECOMMENDATIONS: 1. Mylanta/Maalox. 2. Mag citrate. 3. Antibiotics for possible UTI. 4. Pepcid. 5. Colace. 6. If symptoms persist, then consider upper endoscopy and/or colonoscopy, which certainly can be done as an outpatient. Thank you, Dr. Adelfo Lopez for involving us in the care of your patient. If you have any further questions, please call us. JOB# [id number]
== END 2017-12-24 15:45 | disposition home or self-care (01) | DRG 872 ==
LOC: ER 09:21 → MSI 13:22
PROVIDERS: ADMIT General Practice; ATTEND General Practice
DX: A41.9 Sepsis, unspecified organism (principal); E87.1 Hypo-osmolality and hyponatremia; N13.6 Pyonephrosis; E86.0 Dehydration; Q90.9 Down syndrome, unspecified; F79 Unspecified intellectual disabilities; K52.9 Noninfective gastroenteritis and colitis, unspecified; K21.9 Gastro-esophageal reflux disease without esophagitis; Z82.49 Family history of ischemic heart disease and other diseases of the circulatory system
CPT/HCPCS: 36415-UA; 74000-TC; 80053-TC; 80061-TC; 81001-TC; 82150-TC; 82550-TC; 82948-90; 83690-TC; 83880-TC; 84484-TC; 84703-TC; 85025-TC; 85610-TC; 87086-90; 93005; 94760; J0696; J1885; J1956; J2405; J7030; Z7610

== ENCOUNTER 2017-12-24 18:15 | Emergency (ER) | payer MEDICARE, MEDICAID ==
--- NOTE | 2017-12-24 18:57 | ED Physician Chart ---
ED Chief Complaint/HPI - Patient Information Date Seen:: 12/24/17 Time Seen:: 18:42 Chief Complaint:: abdominal pain History of Present Illness:: THIS IS A 47 YO FEMALE DOWNS SYNDROME PATIENT WAS DISCHARGED FROM THIS HOSPITAL TODAY AND SENT BACK TO THIS ER BECAUSE SHE COMPLAINT OF ABDOMINAL PAIN. THE PATIENT IS NOT VOMITING OR HAVING DIARRHEA. SHE HAS NOT HAD FEVER OR OTHER SYMPTOMS. 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) Review:: Nurse's Note Reviewed, Old Chart Reviewed, Patient unable to respond ED Review of Systems - Review of Systems General/Constitutional: No fever, No chills, No weight loss, No weakness, No diaphoresis, No edema, No loss of appetite, Other (THE PATIENT IS UNABLE TO RESPOND) Skin: No skin lesions, No rash, No bruising Head: No headache, No light-headedness Eyes: No loss of vision, No pain, No diplopia ENT: No earache, No nasal drainage, No sore throat, No tinnitus Neck: No neck pain, No swelling, No thyromegaly, No stiffness, No mass noted Cardio Vascular: No chest pain, No palpitations, No PND, No orthopnea, No edema Pulmonary: No SOB, No cough, No sputum, No wheezing GI: No nausea, No vomiting, No diarrhea, No pain, No melena, No hematochezia, No constipation, No hematemesis G/U: No dysuria, No frequency, No hematuria Musculoskeletal: No bone or joint pain, No back pain, No muscle pain Endocrine: No polyuria, No polydipsia Psychiatric: No prior psych history, No depression, No anxiety, No suicidal ideation Hematopoietic: No bruising, No lymphadenopathy Allergic/Immuno: No urticaria, No angioedema Neurological: No syncope, No focal symptoms, No weakness, No paresthesia, No headache, No seizure, No dizziness, No confusion, No vertigo ED Past Medical History - Past Medical History Obtainable: Yes Past Medical History: Other (DOWNS SYNDROME, PSYCHOSIS, ) Family History: None Social History: Non Smoker, No Alcohol, No Drug Use, Single Surgical History: None Psychiatricy History: Depression, Dementia Medication: Reviewed Family Medical History - Family Member Mother History Unknown: Yes ED Physical Exam - Physical Examination General/Constitutional: Awake, Well-developed, well-nourished, Alert, No distress, GCS 15, Non-toxic appearing, Ambulatory Head: Atraumatic Eyes: Lids, conjuctiva normal, PERRL, EOMI Skin: Nl inspection, No rash, No skin lesions, No ecchymosis, Well hydrated, No lymphadenopathy ENMT: External ears, nose nl, Nasal exam nl, Lips, teeth, gums nl Neck: Nontender, Full ROM w/o pain, No JVD, No nuchal rigidity, No bruit, No mass, No stridor Respiratory: Nl effort/Exclusion, Clear to Auscultation, No Wheeze/Rhonchi/Rales Cardio Vascular: RRR, No murmur, gallop, rubs, NL S1 S2 GI: No tenderness/rebounding/guarding, No organomegaly, No hernia, Normal BS's, Nondistended, No mass/bruits, No McBurney tenderness : No CVA tenderness Extremities: No tenderness or effusion, Full ROM, normal strength in all extremities, No edema, Normal digits & nails Neuro/Psych: Alert/oriented, DTR's symmetric, Normal sensory exam, Normal motor strength, Judgement/insight normal, Mood normal, Normal gait, No focal deficits Misc: Normal back, No paraspinal tenderness ED Assessment - Assessment General Assessment: URINARY TRACT INFECTION ED Septic Shock - . Is Septic Shock (SBP<90, OR Lactate>4 mmol\L) present?: No - <6hrs of presentation: Vital Signs: Vital Signs - 8 hr 12/24/17 18:32 Temp 97.9 F HR 82 RR 18 BP 140/79 O2 Sat % 97 ED Reassessment (Disposition) - Reassessment Reassessment Condition:: Unchanged - Diagnosis Diagnosis:: URINARY TRACT INFECTION - Aftercare/Follow up Instructions Aftercare/Follow-Up Instructions:: Counseled pt regarding lab results/diagnosis & need follow up, Refer to Discharge Instructions, Counseled pt & family regarding lab results/diagnosis & need follow up - Patient Disposition Discharge/Transfer:: Residential/Boarding Care Condition at Disposition:: Unchanged ED Discharge Plan - Patient Disposition Admit/Discharge/Transfer: PT DISCHARGED HOME Condition at Disposition: Stable
[2017-12-24 18:59] LABS: % BASOPHILS 0.1 % (0.0-2.0); % EOSINOPHILS 0.3 % (0.0-5.0); % LYMPHOCYTES 10.2 % (20.0-50.0); % MONOCYTES 6.3 % (2.0-10.0); % NEUTROPHILS 83.1 % (40.0-80.0); HEMATOCRIT 36.9 % (41.0-60); HEMOGLOBIN 12.5 gm/dL (12-16); LYMPHOCYTE ABSOLUTE 0.7 Th/cmm (1.5-3.0); MEAN CELL VOLUME 101.1 fl (81-100); MEAN CORPUSCULAR HEMOGLOBIN 34.3 pg (27.0-31.0); MEAN CORPUSCULAR HGB CONC 33.9 pg (28.0-36.0); MONOCYTE ABSOLUTE 0.4 Th/cmm (0.3-1.0); NEUTROPHILE ABSOLUTE 5.4 Th/cmm (1.8-8.0); RED BLOOD COUNT 3.65 Mil/cmm (3.80-5.10); RED CELL DISTRIBUTION WIDTH 11.3 % (11.5-20.0)
[2017-12-24 19:11] LABS: PLATELET COUNT 243 Th/cmm (150-400); WHITE BLOOD COUNT 6.5 Th/cmm (4.8-10.8)
[2017-12-24 19:12] LABS: URINE MICROSCOPIC INDICATED? YES; URINE SOURCE CLEAN C
[2017-12-24 19:13] LABS: URINE BILIRUBIN NEGATIVE (NEGATIVE); URINE BLOOD NEGATIVE (NEGATIVE); URINE CLARITY CLEAR (CLEAR); URINE COLOR YELLOW; URINE GLUCOSE (UA) NEGATIVE (NEGATIVE); URINE KETONE NEGATIVE (NEGATIVE); URINE LEUKOCYTE ESTERASE NEGATIVE (NEGATIVE); URINE NITRATE NEGATIVE (NEGATIVE); URINE PROTEIN NEGATIVE (NEGATIVE); URINE UROBILINOGEN 0.2 E.U./dL (0.2 - 1.0)
[2017-12-24 19:14] LABS: ALB/GLOB RATIO 1.3 (1.0-1.8); ALBUMIN 3.9 gm/dL (3.7-5.3); ALKALINE PHOSPHATASE 92 U/L (34-104); BILIRUBIN,TOTAL 0.3 mg/dL (0.3-1.0); BUN - UREA NITROGEN 10 mg/dL (7-25); CALCIUM SERUM 9.4 mg/dL (8.6-10.3); CARBON DIOXIDE 25.6 mEq/L (21.0-31.0); CHLORIDE 98 mEq/L (98-107); GFR AFRICAN-AMERICAN > 60.0 ml/min (>90); GFR NON AFRICAN-AMERICAN > 60.0 ml/min; GLUCOSE 116 mg/dL (70-105); POTASSIUM SERUM 3.6 mEq/L (3.5-5.1); SGOT 19 U/L (13-39); SGPT/ALT 12 U/L (7-52); SODIUM SERUM 130 mEq/L (136-145)
[2017-12-24 19:14] LABS: URINE BACTERIA NONE SEEN /hpf (NONE SEEN); URINE EPITHELIAL CELLS NONE SEEN /lpf (FEW); URINE RBC NONE SEEN /hpf (0-5); URINE WBC NONE SEEN /hpf (0-5)
== END 2017-12-24 20:30 | disposition home or self-care (01) ==
LOC: ER 18:15
DX: N39.0 Urinary tract infection, site not specified (principal)
CPT/HCPCS: 36415-UA; 80053-TC; 81001-TC; 85025-TC; Z7502; Z7610

== ENCOUNTER 2018-01-15 17:08 | Inpatient (IN) | payer MEDICARE, MEDICAID ==
--- NOTE | 2018-01-15 17:38 | ED Physician Chart ---
ED Chief Complaint/HPI - Patient Information Date Seen:: 01/15/18 Time Seen:: 17:35 Chief Complaint:: LT FLANK BACK PAIN History of Present Illness:: 47 YR OLD FEMALE WITH LT FLANK ABD PAIN FOR ONE DAY NO NVD NO FEVER OR COUGH UNCLEAR ABOUT DYSURIA OR HEMATURIA OR VAG PROBLEMS Allergies:: Allergies Allergy/AdvReac Type Severity Reaction Status Date / Time No Known Allergies Allergy Verified 12/24/17 18:32 Vitals:: Vital Signs - 8 hr 01/15/18 17:21 Temp 98 F HR 85 RR 20 BP 127/77 O2 Sat % 100 ED Review of Systems - Review of Systems G/U: Other (LT FLANK PAIN) Musculoskeletal: Back pain ED Past Medical History - Past Medical History Past Medical History: HTN, DM, Other (UNCLEAR PT NOT ABLE TO GIVE HX) Family Medical History - Family Member Mother History Unknown: Yes ED Physical Exam - Physical Examination General/Constitutional: Well-developed, well-nourished (HAS DOWNS FEATURES) ED Assessment - Assessment Critical Care Time: LT FLANK BACK PAIN ED Septic Shock - . Is Septic Shock (SBP<90, OR Lactate>4 mmol\L) present?: No - <6hrs of presentation: Vital Signs: Vital Signs - 8 hr 01/15/18 17:21 Temp 98 F HR 85 RR 20 BP 127/77 O2 Sat % 100 ED Reassessment (Disposition) - Diagnosis Diagnosis:: LT FLANK ABD PAIN
[2018-01-15] MEDS ORDERED: Sodium Chloride 0.9% 1,000 ML IV ONE (17:39)
[2018-01-15 18:09] LABS: BASOPHILE ABSOLUTE 0.1 Th/cumm (0-0.2); LYMPHOCYTE ABSOLUTE 1.4 Th/cmm (1.5-3.0); MEAN PLATELET VOLUME 7.4 fl; MONOCYTE ABSOLUTE 0.3 Th/cmm (0.3-1.0)
[2018-01-15 18:13] LABS: % BASOPHILS 1.6 % (0.0-2.0); % LYMPHOCYTES 35.6 % (20.0-50.0); % MONOCYTES 8.7 % (2.0-10.0); % NEUTROPHILS 53.1 % (40.0-80.0); HEMATOCRIT 32.3 % (41.0-60); HEMOGLOBIN 11.3 gm/dL (12-16); MEAN CELL VOLUME 99.7 fl (81-100); MEAN CORPUSCULAR HGB CONC 35.1 pg (28.0-36.0); PLATELET COUNT 251 Th/cmm (150-400); RED BLOOD COUNT 3.24 Mil/cmm (3.80-5.10); RED CELL DISTRIBUTION WIDTH 11.5 % (11.5-20.0)
[2018-01-15 18:15] LABS: WHITE BLOOD COUNT 3.8 Th/cmm (4.8-10.8)
[2018-01-15 18:24] LABS: ALB/GLOB RATIO 1.4 (1.0-1.8); ALKALINE PHOSPHATASE 67 U/L (34-104); ANION GAP 9.4 (7.0-16.0); BILIRUBIN,TOTAL 0.4 mg/dL (0.3-1.0); BUN - UREA NITROGEN 16 mg/dL (7-25); CARBON DIOXIDE 26.6 mEq/L (21.0-31.0); CHLORIDE 95 mEq/L (98-107); GFR AFRICAN-AMERICAN > 60.0 ml/min (>90); GFR NON AFRICAN-AMERICAN > 60.0 ml/min; GLUCOSE 96 mg/dL (70-105); SGOT 17 U/L (13-39); SGPT/ALT 9 U/L (7-52); SODIUM SERUM 127 mEq/L (136-145); TOTAL PROTEIN,SERUM 6.9 gm/dL (6.0-8.3)
[2018-01-15 18:40] LABS: URINE MICROSCOPIC INDICATED? YES; URINE SOURCE CLEAN C
[2018-01-15 18:48] LABS: URINE BILIRUBIN NEGATIVE (NEGATIVE); URINE BLOOD NEGATIVE (NEGATIVE); URINE GLUCOSE (UA) NEGATIVE (NEGATIVE); URINE KETONE NEGATIVE (NEGATIVE); URINE LEUKOCYTE ESTERASE NEGATIVE (NEGATIVE); URINE NITRATE NEGATIVE (NEGATIVE); URINE PH 7.5 (4.6 - 8.0); URINE PROTEIN NEGATIVE (NEGATIVE); URINE UROBILINOGEN 0.2 E.U./dL (0.2 - 1.0)
[2018-01-15 18:58] LABS: URINE CLARITY CLEAR (CLEAR); URINE COLOR YELLOW
[2018-01-15 19:01] LABS: URINE BACTERIA OCCASIONAL /hpf (NONE SEEN); URINE EPITHELIAL CELLS OCCASIONAL /lpf (FEW); URINE RBC 0-2 /hpf (0-5); URINE WBC 0-2 /hpf (0-5)
[2018-01-15 21:44] VITALS: BP 109/69
[2018-01-15] MEDS ORDERED: Morphine Sulfate 2 mg/mL 1mL Syr IVP PRN (22:00)
[2018-01-15] MEDS: Levofloxacin 500mg/100mL 500 MG/100 ML BAG IV SCH (23:46)
[2018-01-16] MEDS: Sodium Chloride 0.45% 1,000 ML IV SCH ×2 (01:13→09:33)
--- NOTE | 2018-01-16 01:15 | Consultation ---
DATE OF CONSULTATION: 01/15/2018 INFECTIOUS DISEASE CONSULTATION REFERRING PHYSICIAN: Dr. Wiseman. REASON FOR CONSULTATION: Neutropenia and left flank pain. HISTORY OF PRESENT ILLNESS: The patient is a 47-year-old female with a past medical history of hypertension, diabetes mellitus type 2, brought in from a nursing facility for left flank pain. On initial evaluation, the patient's temperature was 98 degrees Fahrenheit, pulse was 85, respiration 20, blood pressure is 127/77. Lab work showed WBC count was 3800. CT scan of the abdomen and pelvis was performed and the report is pending. ID consult was called for neutropenia and abdominal pain and flank pain. Urinalysis so far shows negative nitrite, negative leukocyte esterase. test is negative. PAST MEDICAL HISTORY: Includes diabetes mellitus and hypertension. ALLERGIES: NKDA. MEDICATIONS: Per medication reconciliation sheet. Antibiotic hatch none at this time. SOCIAL HISTORY: The patient lives at nursing facility. No history of smoking, alcohol or drug use. REVIEW OF SYSTEMS: GENERAL: The patient denies any fever or chills. HEENT: No diplopia, no photophobia, no sore throat. RESPIRATORY: No cough, no shortness of breath. CARDIOVASCULAR: No chest pain or palpitation. GASTROINTESTINAL: No nausea, no vomiting, no diarrhea, no constipation. The patient has abdominal pain in band-like fashion. MUSCULOSKELETAL: No muscle pain, no joint pain. NEUROLOGIC: No headache, no dizziness, no focal weakness. PHYSICAL EXAMINATION: GENERAL: The patient is comfortable, well nourished, well developed. VITAL SIGNS: Show temperature of 98.2 degrees Fahrenheit, pulse 74, respiration 18, blood pressure 122/74. GENERAL: The patient is comfortable. HEENT: Head is normocephalic, atraumatic. Oral cavity moist, pink. Eyes: No pallor, no icterus. PERRLA, EOMI. NECK: Supple, no JVD, no carotid bruit. Trachea in midline. CHEST: Bilateral breath sounds. No crackles or wheezing. HEART: S1, S2 within normal limits. Regular rhythm. No murmur, no gallop. ABDOMEN: Soft, nondistended. Bowel sounds present. The patient has tenderness limited to the left lower quadrant laterally. EXTREMITIES: No cyanosis, no clubbing, no edema. NEUROLOGICAL: Alert, awake, and oriented x 3. No focal deficit. LABORATORY DATA: Current lab shows WBC count is 3800, hemoglobin 11.3, hematocrit 32.3, platelets are 251,000, neutrophils 53%. Sodium is 127, potassium 4, chloride 95, bicarbonate is 26, BUN is 16, creatinine 1, glucose is 96. Lactic acid is 0.77. Urinalysis showed yellow clear urine, no nitrite, no leukoesterase. Urinalysis does not support any urinary tract infection. IMPRESSION: 1. Left lower quadrant pain, left flank pain, unknown etiology. 2. Diabetes mellitus type 2. 3. Hypertension. ____ RECOMMENDATIONS: Start Levaquin. Wait for the CAT scan of the abdomen and pelvis, and go from there. Thank you, Dr. Wiseman for involving me in taking care of this patient. JOB# [id number]
--- NOTE | 2018-01-16 08:13 | Diagnostic Imaging Report ---
CT abdomen and pelvis without intravenous contrast Indication: Abdominal pain Comparison: CT abdomen and pelvis on 12/21/2018, Technique: Axial images were obtained from the lung bases to the bilateral proximal femurs without IV contrast. Coronal reconstructions were made. total DLP: 542, CTDI11.5 FINDINGS: Hypoventilatory and atelectatic changes of the lung bases are noted. Small pericardial effusion is noted. Assessment of the solid organs is limited due to lack of IV contrast. There is gaseous distention of the distal esophagus. No evidence of focal hepatic, lesions. There are subtle low-density foci within the spleen difficult to characterize. No focal adrenal lesions. No focal pancreatic lesions. Pancreatic or atrophy is noted. Left renal atrophy is noted. There is mild/moderate bilateral hydronephrosis. Distended urinary bladder wall is noted with urinary bladder wall thickening. There is copious amount of stool throughout the colon. There is minimal haziness along the left lower quadrant fat planes. No free fluid or free air. No evidence of appendicitis. Degenerative changes of the spine are noted. Endplate sclerotic changes are again seen at L5. There are also a few faint areas of increased density throughout the lumbar spinal vertebral bodies. Bilateral pars defects are seen at L5/S1. No anterolisthesis. IMPRESSION: Copious stool throughout the colon gas-filled loops of bowel. Please correlate clinically for ileus and constipation. Minimal haziness of the left lower quadrant fat planes is noted. Changes associated with mild colitis in this region cannot be excluded. No free fluid. Distended urinary bladder with urinary bladder wall thickening which may be due to infectious/inflammatory process or chronic bladder outlet obstruction. The significance of this finding should be correlated clinically. Mild to moderate bilateral hydronephrosis which when compared to prior exam may be chronic. Left renal atrophy is also noted. No renal stones identified. Subtle low-density foci within the spleen, difficult to characterize. Short-term follow-up CT with IV contrast would provide additional detail and assessment. Few faint sclerotic densities throughout the lumbar spine. These findings are indeterminate. Metastatic disease cannot be excluded. Correlation needs to be made with clinical history. Short-term follow-up nuclear medicine bone scan with provide additional detail and assessment. Small pericardial effusion. Air distended distal esophagus. Bilateral pars defects at L5/S1. No evidence of anterolisthesis.
--- NOTE | 2018-01-16 08:46 | Diagnostic Imaging Report ---
Portable chest x-ray History: Shortness of breath Allowing for portable technique the heart size is normal. No focal pulmonary parenchymal processes. No hilar or mediastinal abnormalities. Impression: No acute abnormalities.
--- NOTE | 2018-01-16 08:53 | Diagnostic Imaging Report ---
Abdominal ultrasound HISTORY: Pain No focal hepatic lesions are seen. The gallbladder appears normal. No calculi are identified. No biliary dilatation. No focal pancreatic abnormalities. The right kidney is normal in size. There is mild dilatation of the right renal collecting system. Etiology uncertain. The left kidney cannot be seen due to a large amount of bowel gas. The spleen is normal in size. No other retroperitoneal or intra-abdominal abnormalities. IMPRESSION: 1. Nonvisualization of the left kidney associated with bowel gas. CT scan provide additional assessment and evaluation. 2. Suggestion of mild dilatation/hydronephrosis involving the right renal collecting system. Etiology uncertain. Again, a CT scan would provide additional assessment and evaluation.
--- NOTE | 2018-01-16 08:57 | Diagnostic Imaging Report ---
Pelvic ultrasound HISTORY: Pain The exam is limited to transabdominal sonographic technique. There is a small uterus (5.6 x 2.4 x 4.1 cm). No focal myometrial lesions are seen. The right ovary and right adnexal region is unremarkable. There is question of a somewhat tubular shaped density in the left adnexal area. This may be related to bowel. A hydrosalpinx cannot be excluded. No free fluid in the pelvis. IMPRESSION: 1. Limited exam associated with transabdominal sonographic technique 2. Questionable tubular density in the left adnexal region. A hydrosalpinx cannot be sonographically excluded.
[2018-01-16] MEDS ORDERED: DOCUSATE SODIUM PO SCH (09:00)
[2018-01-16] MEDS ORDERED: Non-Formulary Item 1 EA (Multivitamin [Multivitamins] 1 TAB) PO SCH (09:00)
--- NOTE | 2018-01-16 09:20 | General Progress Note ---
Subjective - Review of Systems Service Date: 01/16/18 Events since last encounter: chart reviewed, CT scan colon distention/stools had BM today, continues to complain of pain in abdomen PE abdomen is soft, no mass or localized tenderness suggest GI eval Objective - Results Result Diagrams: 01/15/18 18:00 01/15/18 18:00 Recent Labs: Laboratory Last Values WBC 3.8 Th/cmm (4.8-10.8) L 01/15/18 18:00 RBC 3.24 Mil/cmm (3.80-5.10) L 01/15/18 18:00 Hgb 11.3 gm/dL (12-16) L 01/15/18 18:00 Hct 32.3 % (41.0-60) L 01/15/18 18:00 MCV 99.7 fl (81-100) 01/15/18 18:00 MCH 35.0 pg (27.0-31.0) H 01/15/18 18:00 MCHC Differential 35.1 pg (28.0-36.0) 01/15/18 18:00 RDW 11.5 % (11.5-20.0) 01/15/18 18:00 Plt Count 251 Th/cmm (150-400) 01/15/18 18:00 MPV 7.4 fl 01/15/18 18:00 Neutrophils % 53.1 % (40.0-80.0) 01/15/18 18:00 Lymphocytes % 35.6 % (20.0-50.0) 01/15/18 18:00 Monocytes % 8.7 % (2.0-10.0) 01/15/18 18:00 Eosinophils % 1.0 % (0.0-5.0) 01/15/18 18:00 Basophils % 1.6 % (0.0-2.0) 01/15/18 18:00 Sodium 127 mEq/L (136-145) L 01/15/18 18:00 Potassium 4.0 mEq/L (3.5-5.1) 01/15/18 18:00 Chloride 95 mEq/L (98-107) L 01/15/18 18:00 Carbon Dioxide 26.6 mEq/L (21.0-31.0) 01/15/18 18:00 Anion Gap 9.4 (7.0-16.0) 01/15/18 18:00 BUN 16 mg/dL (7-25) 01/15/18 18:00 Creatinine 1.0 mg/dL (0.6-1.2) 01/15/18 18:00 Est GFR ( Amer) > 60.0 ml/min (>90) 01/15/18 18:00 Est GFR (Non-Af Amer) > 60.0 ml/min 01/15/18 18:00 BUN/Creatinine Ratio 16.0 01/15/18 18:00 Glucose 96 mg/dL (70-105) 01/15/18 18:00 POC Glucose 84 MG/DL (70 - 105) 01/16/18 05:48 Whole Bld Lactic Acid 0.77 mmol/L (0.60-1.99) 01/15/18 18:00 Calcium 9.0 mg/dL (8.6-10.3) 01/15/18 18:00 Total Bilirubin 0.4 mg/dL (0.3-1.0) 01/15/18 18:00 AST 17 U/L (13-39) 01/15/18 18:00 ALT 9 U/L (7-52) 01/15/18 18:00 Alkaline Phosphatase 67 U/L (34-104) 01/15/18 18:00 Total Protein 6.9 gm/dL (6.0-8.3) 01/15/18 18:00 Albumin 4.0 gm/dL (3.7-5.3) 01/15/18 18:00 Globulin 2.9 gm/dL 01/15/18 18:00 Albumin/Globulin Ratio 1.4 (1.0-1.8) 01/15/18 18:00 Urine Source CLEAN C 01/15/18 18:08 Urine Color YELLOW 01/15/18 18:08 Urine Clarity CLEAR (CLEAR) 01/15/18 18:08 Urine pH 7.5 (4.6 - 8.0) 01/15/18 18:08 Ur Specific [place] <= 1.005 (1.005-1.030) 01/15/18 18:08 Urine Protein NEGATIVE mg/dL (NEGATIVE) 01/15/18 18:08 Urine Glucose (UA) NEGATIVE mg/dL (NEGATIVE) 01/15/18 18:08 Urine Ketones NEGATIVE mg/dL (NEGATIVE) 01/15/18 18:08 Urine Blood NEGATIVE (NEGATIVE) 01/15/18 18:08 Urine Nitrate NEGATIVE (NEGATIVE) 01/15/18 18:08 Urine Bilirubin NEGATIVE (NEGATIVE) 01/15/18 18:08 Urine Urobilinogen 0.2 E.U./dL (0.2 - 1.0) 01/15/18 18:08 Ur Leukocyte Esterase NEGATIVE (NEGATIVE) 01/15/18 18:08 Urine RBC 0-2 /hpf (0-5) 01/15/18 18:08 Urine WBC 0-2 /hpf (0-5) 01/15/18 18:08 Ur Epithelial Cells OCCASIONAL /lpf (FEW) 01/15/18 18:08 Urine Bacteria OCCASIONAL /hpf (NONE SEEN) 01/15/18 18:08 Urine Test NEGATIVE 01/15/18 17:30 - Physical Exam Vitals and I&O: Vital Signs Temp 97.2 F 01/16/18 08:00 Pulse 77 01/16/18 08:00 Resp 18 01/16/18 08:00 BP 111/59 01/16/18 08:00 Pulse Ox 97 01/16/18 08:00 Intake & Output 01/15/18 01/16/18 01/16/18 18:59 06:59 18:59 Intake Total 100 Balance 100 Weight (lbs) 68.492 kg 76.657 kg Intake: Intake, IV Amount 100 Levofloxacin 500mg/100mL 100 500 mg In 100 ml @ 100 mls/hr IV Q24HR [facility] Rx#: [id number] Other: # Voids 3 Weight Source Patient stated Bedscale Active Medications: Current Medications Ascorbic Acid (Vitamin C) 500 mg PO DAILY [facility] Stop: 03/17/18 08:59 Benztropine Mesylate (Cogentin) 0.5 mg PO DAILY [facility] Stop: 03/17/18 08:59 Docusate Sodium (Colace) 100 mg PO BID [facility] Stop: 03/17/18 08:59 Famotidine (Pepcid) 20 mg PO BID [facility] Stop: 03/17/18 08:59 Ferrous Sulfate (Iron) 325 mg PO DAILY [facility] Stop: 03/17/18 08:59 Sodium Chloride (Nacl 0.45%) 1,000 mls @ 100 mls/hr IV .Q10H [facility] Stop: 03/16/18 22:29 Last Admin: 01/16/18 01:13 Dose: 100 mls/hr Levofloxacin (Levaquin Pb) 500 mg in 100 mls @ 100 mls/hr IV Q24HR [facility] Stop: 03/17/18 00:00 Last Infusion: 01/16/18 01:11 Dose: Infused Ketoconazole (Nizoral) 120 ml TP Q72HR [facility] Stop: 03/18/18 08:59 Levothyroxine Sodium (Synthroid) 0.075 mg PO QDAC [facility] Stop: 03/17/18 07:29 Miscellaneous (Cyanocobalamin (Vitamin B-12) [Vitamin B-12]) 1 tab PO DAILY [facility] Stop: 03/17/18 08:59 Miscellaneous (Ziprasidone Hcl [Geodon]) 1 tab PO BID [facility] Stop: 03/17/18 08:59 Morphine Sulfate (Morphine) 1 mg IVP Q4HR PRN PRN Reason: Abdominal Pain Stop: 03/16/18 21:59 Multivitamins/Vitamin C (Theragran) 1 tab PO DAILY [facility] Stop: 03/17/18 08:59 Paroxetine HCl (Paxil) 20 mg PO DAILY [facility]; Protocol Stop: 03/17/18 08:59 - Procedures Procedures: Procedures Procedure Code Date CHANGE DRAINAGE DEVICE IN BLADDER, EXTERNAL APPROACH [id number] 03/30/15 INSERT BLADDER CATH COMPLEX 53816 03/02/15 INSERT TEMP BLADDER CATH [id number] 03/30/15 REPLACE INDWELLING CATH 57.95 03/02/15
[2018-01-16] MEDS: Levothyroxine 0.075 Mg Tab PO SCH (09:30)
[2018-01-16] MEDS: CYANOCOBALAMIN PO SCH (09:30)
[2018-01-16] MEDS: Ferrous Sulfate 325 MG TAB PO SCH (09:31)
[2018-01-16] MEDS: Multivitamin Tab PO SCH (09:31)
--- NOTE | 2018-01-16 09:31 | General Progress Note ---
Subjective - Review of Systems Service Date: 01/16/18 Events since last encounter: patient appears to have Down's syndrome Objective - Results Result Diagrams: 01/15/18 18:00 01/15/18 18:00 Recent Labs: Laboratory Last Values WBC 3.8 Th/cmm (4.8-10.8) L 01/15/18 18:00 RBC 3.24 Mil/cmm (3.80-5.10) L 01/15/18 18:00 Hgb 11.3 gm/dL (12-16) L 01/15/18 18:00 Hct 32.3 % (41.0-60) L 01/15/18 18:00 MCV 99.7 fl (81-100) 01/15/18 18:00 MCH 35.0 pg (27.0-31.0) H 01/15/18 18:00 MCHC Differential 35.1 pg (28.0-36.0) 01/15/18 18:00 RDW 11.5 % (11.5-20.0) 01/15/18 18:00 Plt Count 251 Th/cmm (150-400) 01/15/18 18:00 MPV 7.4 fl 01/15/18 18:00 Neutrophils % 53.1 % (40.0-80.0) 01/15/18 18:00 Lymphocytes % 35.6 % (20.0-50.0) 01/15/18 18:00 Monocytes % 8.7 % (2.0-10.0) 01/15/18 18:00 Eosinophils % 1.0 % (0.0-5.0) 01/15/18 18:00 Basophils % 1.6 % (0.0-2.0) 01/15/18 18:00 Sodium 127 mEq/L (136-145) L 01/15/18 18:00 Potassium 4.0 mEq/L (3.5-5.1) 01/15/18 18:00 Chloride 95 mEq/L (98-107) L 01/15/18 18:00 Carbon Dioxide 26.6 mEq/L (21.0-31.0) 01/15/18 18:00 Anion Gap 9.4 (7.0-16.0) 01/15/18 18:00 BUN 16 mg/dL (7-25) 01/15/18 18:00 Creatinine 1.0 mg/dL (0.6-1.2) 01/15/18 18:00 Est GFR ( Amer) > 60.0 ml/min (>90) 01/15/18 18:00 Est GFR (Non-Af Amer) > 60.0 ml/min 01/15/18 18:00 BUN/Creatinine Ratio 16.0 01/15/18 18:00 Glucose 96 mg/dL (70-105) 01/15/18 18:00 POC Glucose 84 MG/DL (70 - 105) 01/16/18 05:48 Whole Bld Lactic Acid 0.77 mmol/L (0.60-1.99) 01/15/18 18:00 Calcium 9.0 mg/dL (8.6-10.3) 01/15/18 18:00 Total Bilirubin 0.4 mg/dL (0.3-1.0) 01/15/18 18:00 AST 17 U/L (13-39) 01/15/18 18:00 ALT 9 U/L (7-52) 01/15/18 18:00 Alkaline Phosphatase 67 U/L (34-104) 01/15/18 18:00 Total Protein 6.9 gm/dL (6.0-8.3) 01/15/18 18:00 Albumin 4.0 gm/dL (3.7-5.3) 01/15/18 18:00 Globulin 2.9 gm/dL 01/15/18 18:00 Albumin/Globulin Ratio 1.4 (1.0-1.8) 01/15/18 18:00 Urine Source CLEAN C 01/15/18 18:08 Urine Color YELLOW 01/15/18 18:08 Urine Clarity CLEAR (CLEAR) 01/15/18 18:08 Urine pH 7.5 (4.6 - 8.0) 01/15/18 18:08 Ur Specific [place] <= 1.005 (1.005-1.030) 01/15/18 18:08 Urine Protein NEGATIVE mg/dL (NEGATIVE) 01/15/18 18:08 Urine Glucose (UA) NEGATIVE mg/dL (NEGATIVE) 01/15/18 18:08 Urine Ketones NEGATIVE mg/dL (NEGATIVE) 01/15/18 18:08 Urine Blood NEGATIVE (NEGATIVE) 01/15/18 18:08 Urine Nitrate NEGATIVE (NEGATIVE) 01/15/18 18:08 Urine Bilirubin NEGATIVE (NEGATIVE) 01/15/18 18:08 Urine Urobilinogen 0.2 E.U./dL (0.2 - 1.0) 01/15/18 18:08 Ur Leukocyte Esterase NEGATIVE (NEGATIVE) 01/15/18 18:08 Urine RBC 0-2 /hpf (0-5) 01/15/18 18:08 Urine WBC 0-2 /hpf (0-5) 01/15/18 18:08 Ur Epithelial Cells OCCASIONAL /lpf (FEW) 01/15/18 18:08 Urine Bacteria OCCASIONAL /hpf (NONE SEEN) 01/15/18 18:08 Urine Test NEGATIVE 01/15/18 17:30 - Physical Exam Vitals and I&O: Vital Signs Temp 97.2 F 01/16/18 08:00 Pulse 77 01/16/18 08:00 Resp 18 01/16/18 08:00 BP 111/59 01/16/18 08:00 Pulse Ox 97 01/16/18 08:00 Intake & Output 01/15/18 01/16/18 01/16/18 18:59 06:59 18:59 Intake Total 100 Balance 100 Weight (lbs) 68.492 kg 76.657 kg Intake: Intake, IV Amount 100 Levofloxacin 500mg/100mL 100 500 mg In 100 ml @ 100 mls/hr IV Q24HR [facility] Rx#: [id number] Other: # Voids 3 Weight Source Patient stated Bedscale Active Medications: Current Medications Ascorbic Acid (Vitamin C) 500 mg PO DAILY [facility] Stop: 03/17/18 08:59 Benztropine Mesylate (Cogentin) 0.5 mg PO DAILY [facility] Stop: 03/17/18 08:59 Docusate Sodium (Colace) 100 mg PO BID [facility] Stop: 03/17/18 08:59 Famotidine (Pepcid) 20 mg PO BID [facility] Stop: 03/17/18 08:59 Ferrous Sulfate (Iron) 325 mg PO DAILY [facility] Stop: 03/17/18 08:59 Sodium Chloride (Nacl 0.45%) 1,000 mls @ 100 mls/hr IV .Q10H [facility] Stop: 03/16/18 22:29 Last Admin: 07/23/18 01:13 Dose: 100 mls/hr Levofloxacin (Levaquin Pb) 500 mg in 100 mls @ 100 mls/hr IV Q24HR [facility] Stop: 03/17/18 00:00 Last Infusion: 01/16/18 01:11 Dose: Infused Ketoconazole (Nizoral) 120 ml TP Q72HR [facility] Stop: 03/18/18 08:59 Levothyroxine Sodium (Synthroid) 0.075 mg PO QDAC [facility] Stop: 03/17/18 07:29 Miscellaneous (Cyanocobalamin (Vitamin B-12) [Vitamin B-12]) 1 tab PO DAILY [facility] Stop: 03/17/18 08:59 Miscellaneous (Ziprasidone Hcl [Geodon]) 1 tab PO BID [facility] Stop: 03/17/18 08:59 Morphine Sulfate (Morphine) 1 mg IVP Q4HR PRN PRN Reason: Abdominal Pain Stop: 03/16/18 21:59 Multivitamins/Vitamin C (Theragran) 1 tab PO DAILY [facility] Stop: 03/17/18 08:59 Paroxetine HCl (Paxil) 20 mg PO DAILY [facility]; Protocol Stop: 03/17/18 08:59 - Procedures Procedures: Procedures Procedure Code Date CHANGE DRAINAGE DEVICE IN BLADDER, EXTERNAL APPROACH [id number] 03/30/15 INSERT BLADDER CATH COMPLEX 85065 03/02/15 INSERT TEMP BLADDER CATH [id number] 03/30/15 REPLACE INDWELLING CATH 57.95 03/02/15
[2018-01-16 09:36] LABS: ANION GAP 8.8 (7.0-16.0); BUN - UREA NITROGEN 13 mg/dL (7-25); CALCIUM SERUM 8.9 mg/dL (8.6-10.3); CARBON DIOXIDE 23.5 mEq/L (21.0-31.0); CHLORIDE 102 mEq/L (98-107); CREATININE - SERUM 0.9 mg/dL (0.6-1.2); GFR AFRICAN-AMERICAN > 60.0 ml/min (>90); GFR NON AFRICAN-AMERICAN > 60.0 ml/min; GLUCOSE 105 mg/dL (70-105); POTASSIUM SERUM 4.3 mEq/L (3.5-5.1); SODIUM SERUM 130 mEq/L (136-145)
[2018-01-16] MEDS: Morphine Sulfate 2 mg/mL 1mL Syr IVP PRN ×2 (13:13→18:54)
[2018-01-16] MEDS: D5-0.45NS 1,000 ML IV SCH (16:08)
--- NOTE | 2018-01-16 21:38 | History & Physical ---
ADMIT DATE: 01/15/2018 The patient was admitted on 01/15/2018 and the patient was admitted because of the left leg pain and also neutropenia. HISTORY OF PRESENT ILLNESS: The patient is a 47-year-old female with past medical history of hypertension, history of diabetes, brought to the Emergency Room from the nursing facility for left flank pain and the patient was found to have a low-grade fever and white count was 3800. CAT scan was done and the patient has urinalysis showed no evidence of infection and test was negative. PAST MEDICAL HISTORY: Include diabetes, history of hypertension. MEDICATIONS: See the reconciliation sheet. SOCIAL HISTORY: The patient lives in a nursing facility. The patient has history of no smoking, no drinking. REVIEW OF SYSTEMS: System review was otherwise negative. PHYSICAL EXAMINATION: HEAD: Normal. ENT: Normal. NECK: Supple, nontender. LUNGS: Clear. CARDIOVASCULAR SYSTEM: S1, S2 heard. ABDOMEN: Soft. Bowel sounds are heard. Left flank tenderness was noted. LABORATORY DATA: Platelet was in the low side 251,000 and neutrophils was 53 neutropenia. Sodium was 127, was low. BUN and creatinine was normal. DIAGNOSES: Left lower quadrant pain, left flank pain, etiology to be determined, neutropenia, diabetes type 2, history of hypertension and hyponatremia. PLAN: The patient is awaiting for the CAT scan report and also we want to do the urology consult and I also treated with normal saline and do get followup labs and I will follow up from there. JOB# [id number]
--- NOTE | 2018-01-16 23:45 | Infectious Disease Prog Note ---
Infectious Disease Subjective - Review of Systems Service Date: 01/16/18 Subjective: Doing well. No event. Infectious Disease Objective - Results Result Diagrams: 01/15/18 18:00 01/16/18 09:15 Recent Labs: Laboratory Last Values WBC 3.8 Th/cmm (4.8-10.8) L 01/15/18 18:00 RBC 3.24 Mil/cmm (3.80-5.10) L 01/15/18 18:00 Hgb 11.3 gm/dL (12-16) L 01/15/18 18:00 Hct 32.3 % (41.0-60) L 01/15/18 18:00 MCV 99.7 fl (81-100) 01/15/18 18:00 MCH 35.0 pg (27.0-31.0) H 01/15/18 18:00 MCHC Differential 35.1 pg (28.0-36.0) 01/15/18 18:00 RDW 11.5 % (11.5-20.0) 01/15/18 18:00 Plt Count 251 Th/cmm (150-400) 01/15/18 18:00 MPV 7.4 fl 01/15/18 18:00 Neutrophils % 53.1 % (40.0-80.0) 01/15/18 18:00 Lymphocytes % 35.6 % (20.0-50.0) 01/15/18 18:00 Monocytes % 8.7 % (2.0-10.0) 01/15/18 18:00 Eosinophils % 1.0 % (0.0-5.0) 01/15/18 18:00 Basophils % 1.6 % (0.0-2.0) 01/15/18 18:00 Sodium 130 mEq/L (136-145) L 01/16/18 09:15 Potassium 4.3 mEq/L (3.5-5.1) 01/16/18 09:15 Chloride 102 mEq/L (98-107) 01/16/18 09:15 Carbon Dioxide 23.5 mEq/L (21.0-31.0) 01/16/18 09:15 Anion Gap 8.8 (7.0-16.0) 01/16/18 09:15 BUN 13 mg/dL (7-25) 01/16/18 09:15 Creatinine 0.9 mg/dL (0.6-1.2) 01/16/18 09:15 Est GFR ( Amer) > 60.0 ml/min (>90) 01/16/18 09:15 Est GFR (Non-Af Amer) > 60.0 ml/min 01/16/18 09:15 BUN/Creatinine Ratio 14.4 01/16/18 09:15 Glucose 105 mg/dL (70-105) 01/16/18 09:15 POC Glucose 117 MG/DL (70 - 105) H 01/16/18 17:13 Whole Bld Lactic Acid 0.77 mmol/L (0.60-1.99) 01/15/18 18:00 Calcium 8.9 mg/dL (8.6-10.3) 01/16/18 09:15 Total Bilirubin 0.4 mg/dL (0.3-1.0) 01/15/18 18:00 AST 17 U/L (13-39) 01/15/18 18:00 ALT 9 U/L (7-52) 01/15/18 18:00 Alkaline Phosphatase 67 U/L (34-104) 01/15/18 18:00 Total Protein 6.9 gm/dL (6.0-8.3) 01/15/18 18:00 Albumin 4.0 gm/dL (3.7-5.3) 01/15/18 18:00 Globulin 2.9 gm/dL 01/15/18 18:00 Albumin/Globulin Ratio 1.4 (1.0-1.8) 01/15/18 18:00 Urine Source CLEAN C 01/15/18 18:08 Urine Color YELLOW 01/15/18 18:08 Urine Clarity CLEAR (CLEAR) 01/15/18 18:08 Urine pH 7.5 (4.6 - 8.0) 01/15/18 18:08 Ur Specific [place] <= 1.005 (1.005-1.030) 01/15/18 18:08 Urine Protein NEGATIVE mg/dL (NEGATIVE) 01/15/18 18:08 Urine Glucose (UA) NEGATIVE mg/dL (NEGATIVE) 01/15/18 18:08 Urine Ketones NEGATIVE mg/dL (NEGATIVE) 01/15/18 18:08 Urine Blood NEGATIVE (NEGATIVE) 01/15/18 18:08 Urine Nitrate NEGATIVE (NEGATIVE) 01/15/18 18:08 Urine Bilirubin NEGATIVE (NEGATIVE) 01/15/18 18:08 Urine Urobilinogen 0.2 E.U./dL (0.2 - 1.0) 01/15/18 18:08 Ur Leukocyte Esterase NEGATIVE (NEGATIVE) 01/15/18 18:08 Urine RBC 0-2 /hpf (0-5) 01/15/18 18:08 Urine WBC 0-2 /hpf (0-5) 01/15/18 18:08 Ur Epithelial Cells OCCASIONAL /lpf (FEW) 01/15/18 18:08 Urine Bacteria OCCASIONAL /hpf (NONE SEEN) 01/15/18 18:08 Urine Test NEGATIVE 01/15/18 17:30 - Physical Exam Vitals and I&O: Vital Signs Temp 98.6 F 01/16/18 18:57 Pulse 78 01/16/18 12:00 Resp 18 01/16/18 18:57 BP 112/53 01/16/18 18:57 Pulse Ox 62 01/16/18 18:57 Intake & Output 01/16/18 01/16/18 01/17/18 06:59 18:59 06:59 Intake Total 100 833.333 Balance 100 833.333 Weight (lbs) 76.657 kg Intake: Intake, IV Amount 100 833.333 Levofloxacin 500mg/100mL 100 500 mg In 100 ml @ 100 mls/hr IV Q24HR [facility] Rx#: [id number] Sodium Chloride 0.45% 1, 833.333 000 ml @ 100 mls/hr IV . Q10H [facility] Rx#:[id number] Other: # Voids 3 Stool Characteristics Soft Formed Brown Weight Source Bedscale Active Medications: Current Medications Ascorbic Acid (Vitamin C) 500 mg PO DAILY [facility] Stop: 03/17/18 08:59 Last Admin: 01/16/18 09:30 Dose: Not Given Benztropine Mesylate (Cogentin) 0.5 mg PO DAILY [facility] Stop: 03/17/18 08:59 Last Admin: 01/16/18 09:30 Dose: Not Given Docusate Sodium (Colace) 100 mg PO BID [facility] Stop: 03/17/18 08:59 Last Admin: 01/16/18 17:15 Dose: Not Given Famotidine (Pepcid) 20 mg PO BID [facility] Stop: 03/17/18 08:59 Last Admin: 01/16/18 17:15 Dose: Not Given Ferrous Sulfate (Iron) 325 mg PO DAILY [facility] Stop: 03/17/18 08:59 Last Admin: 01/16/18 09:31 Dose: Not Given Levofloxacin (Levaquin Pb) 500 mg in 100 mls @ 100 mls/hr IV Q24HR [facility] Stop: 03/17/18 00:00 Last Infusion: 01/16/18 01:11 Dose: Infused Dextrose/Sodium Chloride (D5-0.45ns) 1,000 mls @ 100 mls/hr IV .Q10H [facility] Stop: 03/17/18 13:44 Last Admin: 01/16/18 16:08 Dose: 100 mls/hr Ketoconazole (Nizoral) 120 ml TP Q72HR [facility] Stop: 03/18/18 08:59 Levothyroxine Sodium (Synthroid) 0.075 mg PO QDAC [facility] Stop: 03/17/18 07:29 Last Admin: 01/16/18 09:30 Dose: Not Given Miscellaneous (Cyanocobalamin (Vitamin B-12) [Vitamin B-12]) 1 tab PO DAILY [facility] Stop: 03/17/18 08:59 Last Admin: 01/16/18 09:30 Dose: Not Given Miscellaneous (Ziprasidone Hcl [Geodon]) 1 tab PO BID [facility] Stop: 03/17/18 08:59 Morphine Sulfate (Morphine) 1 mg IVP Q4HR PRN PRN Reason: Abdominal Pain Stop: 03/16/18 21:59 Last Admin: 01/16/18 09:32 Dose: 1 mg Morphine Sulfate (Morphine) 2 mg IVP Q4HR PRN PRN Reason: Severe Pain Stop: 03/17/18 11:15 Last Admin: 01/16/18 18:54 Dose: 2 mg Multivitamins/Vitamin C (Theragran) 1 tab PO DAILY [facility] Stop: 03/17/18 08:59 Last Admin: 01/16/18 09:31 Dose: Not Given Ondansetron HCl (Zofran) 4 mg IV Q6H PRN PRN Reason: Nausea / Vomiting Stop: 03/17/18 11:16 Last Admin: 07/23/18 18:56 Dose: 4 mg Paroxetine HCl (Paxil) 20 mg PO DAILY [facility]; Protocol Stop: 03/17/18 08:59 Last Admin: 01/16/18 09:31 Dose: Not Given General: no acute distress, well developed, well nourished HEENT: atraumatic, normocephalic, PERRLA Neck: supple, no thyromegaly Cardiovascular: S1S2, regular Lungs: clear to auscultation bilaterally, clear to percussion Abdomen: soft, tender, no distended, no mass, no rebound, no hepatomegaly, no ascites Extremities: no cyanosis, no clubbing (G-tube okay), no edema Neurological: awake, alert Skin: intact - Procedures Procedures: Procedures Procedure Code Date CHANGE DRAINAGE DEVICE IN BLADDER, EXTERNAL APPROACH [id number] 03/30/15 INSERT BLADDER CATH COMPLEX 65786 03/02/15 INSERT TEMP BLADDER CATH [id number] 03/30/15 REPLACE INDWELLING CATH 57.95 03/02/15 Infectious Disease Assmt/Plan - Assessment Assessment: 1. Left lower quadrant pain, left flank pain, unknown etiology. 2. Diabetes mellitus type 2. 3. Hypertension. 4. Bilateral hydronephrosis. 5. Cystitis versus UTI. - Plan Plan: Continue Levaquin. Nutritional Asmnt/Malnutr-PDOC - Dietary Evaluation Malnutrition Findings (Please click <Entered> for more info): Nutritional Asmnt/Malnutrition Start: 01/16/18 17: 12 Text: Status: Complete Freq: Protocol: Document 01/16/18 17:12 [email or web address] (Rec: 01/16/18 17:28 BERNAG [id number]) Nutritional Asmnt/Malnutrition Patient General Information Nutritional Screening Moderate Risk Consult Diagnosis abdominal pain Pertinent Medical Hx/Surgical Hx DM, HTN Subjective Information Consult received for hx of DM. Pt seen lying in bed at time of visit, awake. Pt stated still has nausea. Pt still on NPO noted. Current Diet Order/ Nutrition Support NPO Pertinent Medications vit C, D5-0.45ns, colace, pepcid, iron, levaquin, synthroid, theragran Pertinent Labs 01/16 Na 130, glucose 105, POC 84-95 01/15 Na 127, Cl 95, glucose 96 , POC 112 Nutritional Hx/Data Height 1.57 m Height (Calculated Centimeters) 157.5 Current Weight (lbs) 76.657 kg Weight (Calculated Kilograms) 76.7 Weight (Calculated Grams) 59714.1 [place] Body Weight 110 Body Mass Index (BMI) 30.9 Weight Status Obese GI Symptoms GI Symptoms None Last BM not indicated Difficult in: None Usual diet at home pt stated no diet restriction before Skin Integrity/Comment: intact Estimated Nutritional Goals BEE in Kcals: Adj wt of IBW Calories/Kcals/Kg 25-30 Kcals Calculated 8065-3962 Protein: Adj wt of IBW Protein g/k.8-1 Protein Calculated 45-57 Fluid: ml 1425-1710ml (1ml/kcal) Nutritional Problem 1. Problem Problem inadequate energy intake Etiology altered GI function Signs/Symptoms: pt on NPO Malnutrition Alert Is there a minimum of two criteria No selected? Query Text:Check all the applicable criteria. A minimum of two criteria are recommended for diagnosis of either severe or non-severe malnutrition. Malnutrition Related to Morbid Obesity Malnutrition related to morbid obesity No Intervention/Recommendation Comments 1. Monitor NPO status. Start clear liquid with Ensure clear when medically appropriate. Monitor glucose when oral diet states. 2. Monitor PO intake, wt, labs and skin integrity 3. F/U as high risk in 2-3 days, 01/18-01/19 Expected Outcomes/Goals Expected Outcomes/Goals 1. PO intake to meet at least 75% of nutritional needs. 2. Wt stability, skin to remain intact, labs to approach WNL.
[2018-01-17] MEDS: Levofloxacin 500mg/100mL 500 MG/100 ML BAG IV SCH (00:06)
[2018-01-17] MEDS: Morphine Sulfate 2 mg/mL 1mL Syr IVP PRN ×3 (03:50→13:41)
[2018-01-17] MEDS: D5-0.45NS 1,000 ML IV SCH ×2 (03:51→16:01)
[2018-01-17] MEDS: Levothyroxine 0.075 Mg Tab PO SCH (08:28)
[2018-01-17] MEDS: Multivitamin Tab PO SCH (08:29)
[2018-01-17] MEDS: CYANOCOBALAMIN PO SCH (08:29)
[2018-01-17] MEDS: Ferrous Sulfate 325 MG TAB PO SCH (08:29)
[2018-01-17] MEDS: KETOCONAZOLE 2% 120 ML SHAMP TP SCH (09:31)
[2018-01-17] MEDS ORDERED: Magnesium Hydroxide (MOM) 30 mL UDC PO ONE (10:29)
[2018-01-17] MEDS ORDERED: Fleet Enema 135 mL RC ONE (10:29)
[2018-01-17] MEDS ORDERED: Diatrizoate Meglumine/Diatri 30 mL Sol PO ONE (12:05)
--- NOTE | 2018-01-17 12:11 | General Progress Note ---
Subjective - Review of Systems Service Date: 01/17/18 Events since last encounter: had enema, had BM acute care registered nurse claims patient has infrequent BM discussed with sister, father does not know patient well, has not visited her UGI ordered Objective - Results Result Diagrams: 01/15/18 18:00 01/16/18 09:15 Recent Labs: Laboratory Last Values WBC 3.8 Th/cmm (4.8-10.8) L 01/15/18 18:00 RBC 3.24 Mil/cmm (3.80-5.10) L 01/15/18 18:00 Hgb 11.3 gm/dL (12-16) L 01/15/18 18:00 Hct 32.3 % (41.0-60) L 01/15/18 18:00 MCV 99.7 fl (81-100) 01/15/18 18:00 MCH 35.0 pg (27.0-31.0) H 01/15/18 18:00 MCHC Differential 35.1 pg (28.0-36.0) 01/15/18 18:00 RDW 11.5 % (11.5-20.0) 01/15/18 18:00 Plt Count 251 Th/cmm (150-400) 01/15/18 18:00 MPV 7.4 fl 01/15/18 18:00 Neutrophils % 53.1 % (40.0-80.0) 01/15/18 18:00 Lymphocytes % 35.6 % (20.0-50.0) 01/15/18 18:00 Monocytes % 8.7 % (2.0-10.0) 01/15/18 18:00 Eosinophils % 1.0 % (0.0-5.0) 01/15/18 18:00 Basophils % 1.6 % (0.0-2.0) 01/15/18 18:00 Sodium 130 mEq/L (136-145) L 01/16/18 09:15 Potassium 4.3 mEq/L (3.5-5.1) 01/16/18 09:15 Chloride 102 mEq/L (98-107) 01/16/18 09:15 Carbon Dioxide 23.5 mEq/L (21.0-31.0) 01/16/18 09:15 Anion Gap 8.8 (7.0-16.0) 01/16/18 09:15 BUN 13 mg/dL (7-25) 01/16/18 09:15 Creatinine 0.9 mg/dL (0.6-1.2) 01/16/18 09:15 Est GFR ( Amer) > 60.0 ml/min (>90) 01/16/18 09:15 Est GFR (Non-Af Amer) > 60.0 ml/min 01/16/18 09:15 BUN/Creatinine Ratio 14.4 01/16/18 09:15 Glucose 105 mg/dL (70-105) 01/16/18 09:15 POC Glucose 125 MG/DL (70-105) H 01/17/18 05:50 Whole Bld Lactic Acid 0.77 mmol/L (0.60-1.99) 01/15/18 18:00 Calcium 8.9 mg/dL (8.6-10.3) 01/16/18 09:15 Total Bilirubin 0.4 mg/dL (0.3-1.0) 01/15/18 18:00 AST 17 U/L (13-39) 01/15/18 18:00 ALT 9 U/L (7-52) 01/15/18 18:00 Alkaline Phosphatase 67 U/L (34-104) 01/15/18 18:00 Total Protein 6.9 gm/dL (6.0-8.3) 01/15/18 18:00 Albumin 4.0 gm/dL (3.7-5.3) 01/15/18 18:00 Globulin 2.9 gm/dL 01/15/18 18:00 Albumin/Globulin Ratio 1.4 (1.0-1.8) 01/15/18 18:00 Urine Source CLEAN C 01/15/18 18:08 Urine Color YELLOW 01/15/18 18:08 Urine Clarity CLEAR (CLEAR) 01/15/18 18:08 Urine pH 7.5 (4.6 - 8.0) 01/15/18 18:08 Ur Specific [place] <= 1.005 (1.005-1.030) 01/15/18 18:08 Urine Protein NEGATIVE mg/dL (NEGATIVE) 01/15/18 18:08 Urine Glucose (UA) NEGATIVE mg/dL (NEGATIVE) 07/22/18 18:08 Urine Ketones NEGATIVE mg/dL (NEGATIVE) 01/15/18 18:08 Urine Blood NEGATIVE (NEGATIVE) 01/15/18 18:08 Urine Nitrate NEGATIVE (NEGATIVE) 01/15/18 18:08 Urine Bilirubin NEGATIVE (NEGATIVE) 01/15/18 18:08 Urine Urobilinogen 0.2 E.U./dL (0.2 - 1.0) 01/15/18 18:08 Ur Leukocyte Esterase NEGATIVE (NEGATIVE) 01/15/18 18:08 Urine RBC 0-2 /hpf (0-5) 01/15/18 18:08 Urine WBC 0-2 /hpf (0-5) 01/15/18 18:08 Ur Epithelial Cells OCCASIONAL /lpf (FEW) 01/15/18 18:08 Urine Bacteria OCCASIONAL /hpf (NONE SEEN) 01/15/18 18:08 Urine Test NEGATIVE 01/15/18 17:30 - Physical Exam Vitals and I&O: Vital Signs Temp 97.2 F 01/17/18 08:00 Pulse 68 01/17/18 08:00 Resp 18 01/17/18 08:00 BP 117/68 01/17/18 08:00 Pulse Ox 96 01/17/18 08:00 Intake & Output 01/16/18 01/17/18 01/17/18 18:59 06:59 18:59 Intake Total 292.017 1604 Balance 305.027 0356 Intake: Intake, IV Amount 163.752 2784 D5-0.45NS 1,000 ml @ 100 1000 mls/hr IV .Q10H [facility] Rx#: [id number] Sodium Chloride 0.45% 1, 833.333 000 ml @ 100 mls/hr IV . Q10H [facility] Rx#:[id number] Other: Stool Characteristics Soft Formed Brown Active Medications: Current Medications Ascorbic Acid (Vitamin C) 500 mg PO DAILY [facility] Stop: 03/17/18 08:59 Last Admin: 01/17/18 08:29 Dose: Not Given Benztropine Mesylate (Cogentin) 0.5 mg PO DAILY [facility] Stop: 03/17/18 08:59 Last Admin: 01/17/18 08:29 Dose: Not Given Cyanocobalamin (Vitamin B12) 1,000 mcg PO DAILY [facility] Stop: 03/17/18 08:59 Docusate Sodium (Colace) 100 mg PO BID [facility] Stop: 03/17/18 08:59 Last Admin: 01/17/18 08:29 Dose: Not Given Famotidine (Pepcid) 20 mg PO BID [facility] Stop: 03/17/18 08:59 Last Admin: 01/17/18 08:29 Dose: Not Given Ferrous Sulfate (Iron) 325 mg PO DAILY [facility] Stop: 03/17/18 08:59 Last Admin: 01/17/18 08:29 Dose: Not Given Levofloxacin (Levaquin Pb) 500 mg in 100 mls @ 100 mls/hr IV Q24HR [facility] Stop: 03/17/18 00:00 Last Admin: 01/17/18 00:06 Dose: 100 mls/hr Dextrose/Sodium Chloride (D5-0.45ns) 1,000 mls @ 100 mls/hr IV .Q10H [facility] Stop: 03/17/18 13:44 Last Admin: 01/17/18 03:51 Dose: 100 mls/hr Ketoconazole (Nizoral) 120 ml TP Q72HR [facility] Stop: 03/18/18 08:59 Last Admin: 01/17/18 09:31 Dose: 120 ml Levothyroxine Sodium (Synthroid) 0.075 mg PO QDAC [facility] Stop: 03/17/18 07:29 Last Admin: 01/17/18 08:28 Dose: Not Given Miscellaneous (Ziprasidone Hcl [Geodon]) 1 tab PO BID [facility] Stop: 03/17/18 08:59 Morphine Sulfate (Morphine) 1 mg IVP Q4HR PRN PRN Reason: Abdominal Pain Stop: 03/16/18 21:59 Last Admin: 01/16/18 09:32 Dose: 1 mg Morphine Sulfate (Morphine) 2 mg IVP Q4HR PRN PRN Reason: Severe Pain Stop: 03/17/18 11:15 Last Admin: 01/17/18 09:26 Dose: 2 mg Multivitamins/Vitamin C (Theragran) 1 tab PO DAILY [facility] Stop: 03/17/18 08:59 Last Admin: 01/17/18 08:29 Dose: Not Given Ondansetron HCl (Zofran) 4 mg IV Q6H PRN PRN Reason: Nausea / Vomiting Stop: 03/17/18 11:16 Last Admin: 01/17/18 11:32 Dose: 4 mg Paroxetine HCl (Paxil) 20 mg PO DAILY [facility]; Protocol Stop: 03/17/18 08:59 Last Admin: 01/17/18 08:29 Dose: Not Given - Procedures Procedures: Procedures Procedure Code Date CHANGE DRAINAGE DEVICE IN BLADDER, EXTERNAL APPROACH [id number] 03/30/15 INSERT BLADDER CATH COMPLEX 71971 03/02/15 INSERT TEMP BLADDER CATH 15993 03/30/15 REPLACE INDWELLING CATH 57.95 03/02/15 Nutritional Asmnt/Malnutr-PDOC - Dietary Evaluation Malnutrition Findings (Please click <Entered> for more info): Nutritional Asmnt/Malnutrition Start: 01/16/18 17: 12 Text: Status: Complete Freq: Protocol: Document 01/16/18 17:12 COY (Rec: 01/16/18 17:28 COY [email or web address]) Nutritional Asmnt/Malnutrition Patient General Information Nutritional Screening Moderate Risk Consult Diagnosis abdominal pain Pertinent Medical Hx/Surgical Hx DM, HTN Subjective Information Consult received for hx of DM. Pt seen lying in bed at time of visit, awake. Pt stated still has nausea. Pt still on NPO noted. Current Diet Order/ Nutrition Support NPO Pertinent Medications vit C, D5-0.45ns, colace, pepcid, iron, levaquin, synthroid, theragran Pertinent Labs 01/16 Na 130, glucose 105, POC 84-95 01/15 Na 127, Cl 95, glucose 96 , POC 112 Nutritional Hx/Data Height 1.57 m Height (Calculated Centimeters) 157.5 Current Weight (lbs) 76.657 kg Weight (Calculated Kilograms) 76.7 Weight (Calculated Grams) 31569.1 [place] Body Weight 110 Body Mass Index (BMI) 30.9 Weight Status Obese GI Symptoms GI Symptoms None Last BM not indicated Difficult in: None Usual diet at home pt stated no diet restriction before Skin Integrity/Comment: intact Estimated Nutritional Goals BEE in Kcals: Adj wt of IBW Calories/Kcals/Kg 25-30 Kcals Calculated 2719-9724 Protein: Adj wt of IBW Protein g/k.8-1 Protein Calculated 45-57 Fluid: ml 1425-1710ml (1ml/kcal) Nutritional Problem 1. Problem Problem inadequate energy intake Etiology altered GI function Signs/Symptoms: pt on NPO Malnutrition Alert Is there a minimum of two criteria No selected? Query Text:Check all the applicable criteria. A minimum of two criteria are recommended for diagnosis of either severe or non-severe malnutrition. Malnutrition Related to Morbid Obesity Malnutrition related to morbid obesity No Intervention/Recommendation Comments 1. Monitor NPO status. Start clear liquid with Ensure clear when medically appropriate. Monitor glucose when oral diet states. 2. Monitor PO intake, wt, labs and skin integrity 3. F/U as high risk in 2-3 days, 01/18-01/19 Expected Outcomes/Goals Expected Outcomes/Goals 1. PO intake to meet at least 75% of nutritional needs. 2. Wt stability, skin to remain intact, labs to approach WNL.
--- NOTE | 2018-01-17 14:05 | Diagnostic Imaging Report ---
Upper GI and small bowel follow-through History: Bowel obstruction Comparison: CT abdomen and pelvis on 01/15/2018 Technique/procedure: Cross Tie Tram Loader view demonstrates copious amount of stool throughout the colon with generalized gas-filled loops of bowel. Oral contrast and multiple fluoroscopic images were obtained. Assessment of the stomach is severely limited including limiting assessment for focal lesions. There is normal transit of contrast from the stomach to the small bowel based on the limited images provided. Assessment for small bowel lesions is also limited on this exam. There is no evidence of small bowel obstruction. IMPRESSION: Limited exam. No evidence of small bowel obstruction Copious stool and gas-filled loops of bowel. Please correlate clinically for constipation.
--- NOTE | 2018-01-17 14:24 | Infectious Disease Prog Note ---
Infectious Disease Subjective - Review of Systems Service Date: 01/17/18 Subjective: Doing well. No event. Infectious Disease Objective - Results Result Diagrams: 01/15/18 18:00 01/16/18 09:15 Recent Labs: Laboratory Last Values WBC 3.8 Th/cmm (4.8-10.8) L 01/15/18 18:00 RBC 3.24 Mil/cmm (3.80-5.10) L 01/15/18 18:00 Hgb 11.3 gm/dL (12-16) L 01/15/18 18:00 Hct 32.3 % (41.0-60) L 01/15/18 18:00 MCV 99.7 fl (81-100) 01/15/18 18:00 MCH 35.0 pg (27.0-31.0) H 01/15/18 18:00 MCHC Differential 35.1 pg (28.0-36.0) 01/15/18 18:00 RDW 11.5 % (11.5-20.0) 01/15/18 18:00 Plt Count 251 Th/cmm (150-400) 01/15/18 18:00 MPV 7.4 fl 01/15/18 18:00 Neutrophils % 53.1 % (40.0-80.0) 01/15/18 18:00 Lymphocytes % 35.6 % (20.0-50.0) 01/15/18 18:00 Monocytes % 8.7 % (2.0-10.0) 01/15/18 18:00 Eosinophils % 1.0 % (0.0-5.0) 01/15/18 18:00 Basophils % 1.6 % (0.0-2.0) 01/15/18 18:00 Sodium 130 mEq/L (136-145) L 01/16/18 09:15 Potassium 4.3 mEq/L (3.5-5.1) 01/16/18 09:15 Chloride 102 mEq/L (98-107) 01/16/18 09:15 Carbon Dioxide 23.5 mEq/L (21.0-31.0) 01/16/18 09:15 Anion Gap 8.8 (7.0-16.0) 01/16/18 09:15 BUN 13 mg/dL (7-25) 01/16/18 09:15 Creatinine 0.9 mg/dL (0.6-1.2) 01/16/18 09:15 Est GFR ( Amer) > 60.0 ml/min (>90) 01/16/18 09:15 Est GFR (Non-Af Amer) > 60.0 ml/min 01/16/18 09:15 BUN/Creatinine Ratio 14.4 01/16/18 09:15 Glucose 105 mg/dL (70-105) 01/16/18 09:15 POC Glucose 125 MG/DL (70-105) H 01/17/18 05:50 Whole Bld Lactic Acid 0.77 mmol/L (0.60-1.99) 01/15/18 18:00 Calcium 8.9 mg/dL (8.6-10.3) 01/16/18 09:15 Total Bilirubin 0.4 mg/dL (0.3-1.0) 01/15/18 18:00 AST 17 U/L (13-39) 01/15/18 18:00 ALT 9 U/L (7-52) 01/15/18 18:00 Alkaline Phosphatase 67 U/L (34-104) 01/15/18 18:00 Total Protein 6.9 gm/dL (6.0-8.3) 01/15/18 18:00 Albumin 4.0 gm/dL (3.7-5.3) 01/15/18 18:00 Globulin 2.9 gm/dL 01/15/18 18:00 Albumin/Globulin Ratio 1.4 (1.0-1.8) 01/15/18 18:00 Urine Source CLEAN C 01/15/18 18:08 Urine Color YELLOW 01/15/18 18:08 Urine Clarity CLEAR (CLEAR) 01/15/18 18:08 Urine pH 7.5 (4.6 - 8.0) 01/15/18 18:08 Ur Specific [place] <= 1.005 (1.005-1.030) 01/15/18 18:08 Urine Protein NEGATIVE mg/dL (NEGATIVE) 01/15/18 18:08 Urine Glucose (UA) NEGATIVE mg/dL (NEGATIVE) 01/15/18 18:08 Urine Ketones NEGATIVE mg/dL (NEGATIVE) 01/15/18 18:08 Urine Blood NEGATIVE (NEGATIVE) 01/15/18 18:08 Urine Nitrate NEGATIVE (NEGATIVE) 01/15/18 18:08 Urine Bilirubin NEGATIVE (NEGATIVE) 01/15/18 18:08 Urine Urobilinogen 0.2 E.U./dL (0.2 - 1.0) 01/15/18 18:08 Ur Leukocyte Esterase NEGATIVE (NEGATIVE) 01/15/18 18:08 Urine RBC 0-2 /hpf (0-5) 01/15/18 18:08 Urine WBC 0-2 /hpf (0-5) 01/15/18 18:08 Ur Epithelial Cells OCCASIONAL /lpf (FEW) 01/15/18 18:08 Urine Bacteria OCCASIONAL /hpf (NONE SEEN) 01/15/18 18:08 Urine Test NEGATIVE 01/15/18 17:30 - Physical Exam Vitals and I&O: Vital Signs Temp 98 F 01/17/18 12:00 Pulse 71 01/17/18 12:00 Resp 20 01/17/18 12:00 BP 128/71 01/17/18 12:00 Pulse Ox 98 01/17/18 12:00 Intake & Output 01/16/18 01/17/18 01/17/18 18:59 06:59 18:59 Intake Total 929.603 2369 Balance 990.085 9869 Intake: Intake, IV Amount 445.024 9125 D5-0.45NS 1,000 ml @ 100 1000 mls/hr IV .Q10H [facility] Rx#: [id number] Sodium Chloride 0.45% 1, 833.333 000 ml @ 100 mls/hr IV . Q10H [facility] Rx#:[id number] Other: Stool Characteristics Soft Formed Brown Active Medications: Current Medications Ascorbic Acid (Vitamin C) 500 mg PO DAILY [facility] Stop: 03/17/18 08:59 Last Admin: 01/17/18 08:29 Dose: Not Given Benztropine Mesylate (Cogentin) 0.5 mg PO DAILY [facility] Stop: 03/17/18 08:59 Last Admin: 01/17/18 08:29 Dose: Not Given Cyanocobalamin (Vitamin B12) 1,000 mcg PO DAILY [facility] Stop: 03/17/18 08:59 Docusate Sodium (Colace) 100 mg PO BID [facility] Stop: 03/17/18 08:59 Last Admin: 01/17/18 08:29 Dose: Not Given Famotidine (Pepcid) 20 mg PO BID [facility] Stop: 03/17/18 08:59 Last Admin: 01/17/18 08:29 Dose: Not Given Ferrous Sulfate (Iron) 325 mg PO DAILY [facility] Stop: 03/17/18 08:59 Last Admin: 01/17/18 08:29 Dose: Not Given Levofloxacin (Levaquin Pb) 500 mg in 100 mls @ 100 mls/hr IV Q24HR [facility] Stop: 03/17/18 00:00 Last Admin: 01/17/18 00:06 Dose: 100 mls/hr Dextrose/Sodium Chloride (D5-0.45ns) 1,000 mls @ 100 mls/hr IV .Q10H [facility] Stop: 03/17/18 13:44 Last Admin: 01/17/18 03:51 Dose: 100 mls/hr Ketoconazole (Nizoral) 120 ml TP Q72HR [facility] Stop: 03/18/18 08:59 Last Admin: 01/17/18 09:31 Dose: 120 ml Levothyroxine Sodium (Synthroid) 0.075 mg PO QDAC [facility] Stop: 03/17/18 07:29 Last Admin: 01/17/18 08:28 Dose: Not Given Morphine Sulfate (Morphine) 1 mg IVP Q4HR PRN PRN Reason: Abdominal Pain Stop: 03/16/18 21:59 Last Admin: 01/16/18 09:32 Dose: 1 mg Morphine Sulfate (Morphine) 2 mg IVP Q4HR PRN PRN Reason: Severe Pain Stop: 03/17/18 11:15 Last Admin: 01/17/18 13:41 Dose: 2 mg Multivitamins/Vitamin C (Theragran) 1 tab PO DAILY [facility] Stop: 03/17/18 08:59 Last Admin: 01/17/18 08:29 Dose: Not Given Ondansetron HCl (Zofran) 4 mg IV Q6H PRN PRN Reason: Nausea / Vomiting Stop: 03/17/18 11:16 Last Admin: 01/17/18 11:32 Dose: 4 mg Paroxetine HCl (Paxil) 20 mg PO DAILY [facility]; Protocol Stop: 03/17/18 08:59 Last Admin: 01/17/18 08:29 Dose: Not Given Ziprasidone (Geodon) 80 mg PO BID [facility] Stop: 03/17/18 08:59 General: no acute distress, well developed, well nourished HEENT: atraumatic, normocephalic, PERRLA, EOMI Neck: supple, no thyromegaly Cardiovascular: S1S2, regular Lungs: clear to auscultation bilaterally, clear to percussion Abdomen: soft, no tender, no distended, no hepatomegaly Extremities: no cyanosis, no clubbing, no edema Neurological: awake, alert Skin: intact - Procedures Procedures: Procedures Procedure Code Date CHANGE DRAINAGE DEVICE IN BLADDER, EXTERNAL APPROACH [id number] 03/30/15 INSERT BLADDER CATH COMPLEX 20429 03/02/15 INSERT TEMP BLADDER CATH 24879 03/30/15 REPLACE INDWELLING CATH 57.95 03/02/15 Infectious Disease Assmt/Plan - Assessment Assessment: 1. Left lower quadrant pain, left flank pain, unknown etiology. 2. Diabetes mellitus type 2. 3. Hypertension. 4. Bilateral hydronephrosis. 5. Cystitis versus UTI. - Plan Plan: Continue Levaquin. Nutritional Asmnt/Malnutr-PDOC - Dietary Evaluation Malnutrition Findings (Please click <Entered> for more info): Nutritional Asmnt/Malnutrition Start: 01/16/18 17: 12 Text: Status: Complete Freq: Protocol: Document 01/16/18 17:12 LCBERNAG (Rec: 01/16/18 17:28 LCBERNAG [id number]) Nutritional Asmnt/Malnutrition Patient General Information Nutritional Screening Moderate Risk Consult Diagnosis abdominal pain Pertinent Medical Hx/Surgical Hx DM, HTN Subjective Information Consult received for hx of DM. Pt seen lying in bed at time of visit, awake. Pt stated still has nausea. Pt still on NPO noted. Current Diet Order/ Nutrition Support NPO Pertinent Medications vit C, D5-0.45ns, colace, pepcid, iron, levaquin, synthroid, theragran Pertinent Labs 01/16 Na 130, glucose 105, POC 84-95 01/15 Na 127, Cl 95, glucose 96 , POC 112 Nutritional Hx/Data Height 1.57 m Height (Calculated Centimeters) 157.5 Current Weight (lbs) 76.657 kg Weight (Calculated Kilograms) 76.7 Weight (Calculated Grams) 28161.1 [place] Body Weight 110 Body Mass Index (BMI) 30.9 Weight Status Obese GI Symptoms GI Symptoms None Last BM not indicated Difficult in: None Usual diet at home pt stated no diet restriction before Skin Integrity/Comment: intact Estimated Nutritional Goals BEE in Kcals: Adj wt of IBW Calories/Kcals/Kg 25-30 Kcals Calculated 2044-9986 Protein: Adj wt of IBW Protein g/k.8-1 Protein Calculated 45-57 Fluid: ml 1425-1710ml (1ml/kcal) Nutritional Problem 1. Problem Problem inadequate energy intake Etiology altered GI function Signs/Symptoms: pt on NPO Malnutrition Alert Is there a minimum of two criteria No selected? Query Text:Check all the applicable criteria. A minimum of two criteria are recommended for diagnosis of either severe or non-severe malnutrition. Malnutrition Related to Morbid Obesity Malnutrition related to morbid obesity No Intervention/Recommendation Comments 1. Monitor NPO status. Start clear liquid with Ensure clear when medically appropriate. Monitor glucose when oral diet states. 2. Monitor PO intake, wt, labs and skin integrity 3. F/U as high risk in 2-3 days, 01/18-01/19 Expected Outcomes/Goals Expected Outcomes/Goals 1. PO intake to meet at least 75% of nutritional needs. 2. Wt stability, skin to remain intact, labs to approach WNL.
--- NOTE | 2018-01-17 14:45 | Internal Medicine Prog Note ---
Internal Medicine Subjective - Subjective Service Date: 01/17/18 (still have abdominal pain) Patient seen and examined:: with staff Patient is:: awake, verbal Per staff patient has:: tolerating meds Internal Medicine Objective - Results Result Diagrams: 01/15/18 18:00 01/16/18 09:15 Recent Labs: Laboratory Last Values WBC 3.8 Th/cmm (4.8-10.8) L 01/15/18 18:00 RBC 3.24 Mil/cmm (3.80-5.10) L 01/15/18 18:00 Hgb 11.3 gm/dL (12-16) L 01/15/18 18:00 Hct 32.3 % (41.0-60) L 01/15/18 18:00 MCV 99.7 fl (81-100) 01/15/18 18:00 MCH 35.0 pg (27.0-31.0) H 01/15/18 18:00 MCHC Differential 35.1 pg (28.0-36.0) 01/15/18 18:00 RDW 11.5 % (11.5-20.0) 01/15/18 18:00 Plt Count 251 Th/cmm (150-400) 01/15/18 18:00 MPV 7.4 fl 01/15/18 18:00 Neutrophils % 53.1 % (40.0-80.0) 01/15/18 18:00 Lymphocytes % 35.6 % (20.0-50.0) 01/15/18 18:00 Monocytes % 8.7 % (2.0-10.0) 01/15/18 18:00 Eosinophils % 1.0 % (0.0-5.0) 01/15/18 18:00 Basophils % 1.6 % (0.0-2.0) 01/15/18 18:00 Sodium 130 mEq/L (136-145) L 01/16/18 09:15 Potassium 4.3 mEq/L (3.5-5.1) 01/16/18 09:15 Chloride 102 mEq/L (98-107) 01/16/18 09:15 Carbon Dioxide 23.5 mEq/L (21.0-31.0) 01/16/18 09:15 Anion Gap 8.8 (7.0-16.0) 01/16/18 09:15 BUN 13 mg/dL (7-25) 01/16/18 09:15 Creatinine 0.9 mg/dL (0.6-1.2) 01/16/18 09:15 Est GFR ( Amer) > 60.0 ml/min (>90) 01/16/18 09:15 Est GFR (Non-Af Amer) > 60.0 ml/min 01/16/18 09:15 BUN/Creatinine Ratio 14.4 01/16/18 09:15 Glucose 105 mg/dL (70-105) 01/16/18 09:15 POC Glucose 125 MG/DL (70-105) H 01/17/18 05:50 Whole Bld Lactic Acid 0.77 mmol/L (0.60-1.99) 01/15/18 18:00 Calcium 8.9 mg/dL (8.6-10.3) 01/16/18 09:15 Total Bilirubin 0.4 mg/dL (0.3-1.0) 01/15/18 18:00 AST 17 U/L (13-39) 01/15/18 18:00 ALT 9 U/L (7-52) 01/15/18 18:00 Alkaline Phosphatase 67 U/L (34-104) 01/15/18 18:00 Total Protein 6.9 gm/dL (6.0-8.3) 01/15/18 18:00 Albumin 4.0 gm/dL (3.7-5.3) 01/15/18 18:00 Globulin 2.9 gm/dL 01/15/18 18:00 Albumin/Globulin Ratio 1.4 (1.0-1.8) 01/15/18 18:00 Urine Source CLEAN C 01/15/18 18:08 Urine Color YELLOW 01/15/18 18:08 Urine Clarity CLEAR (CLEAR) 01/15/18 18:08 Urine pH 7.5 (4.6 - 8.0) 01/15/18 18:08 Ur Specific [place] <= 1.005 (1.005-1.030) 01/15/18 18:08 Urine Protein NEGATIVE mg/dL (NEGATIVE) 01/15/18 18:08 Urine Glucose (UA) NEGATIVE mg/dL (NEGATIVE) 01/15/18 18:08 Urine Ketones NEGATIVE mg/dL (NEGATIVE) 01/15/18 18:08 Urine Blood NEGATIVE (NEGATIVE) 01/15/18 18:08 Urine Nitrate NEGATIVE (NEGATIVE) 01/15/18 18:08 Urine Bilirubin NEGATIVE (NEGATIVE) 01/15/18 18:08 Urine Urobilinogen 0.2 E.U./dL (0.2 - 1.0) 01/15/18 18:08 Ur Leukocyte Esterase NEGATIVE (NEGATIVE) 01/15/18 18:08 Urine RBC 0-2 /hpf (0-5) 01/15/18 18:08 Urine WBC 0-2 /hpf (0-5) 01/15/18 18:08 Ur Epithelial Cells OCCASIONAL /lpf (FEW) 01/15/18 18:08 Urine Bacteria OCCASIONAL /hpf (NONE SEEN) 01/15/18 18:08 Urine Test NEGATIVE 01/15/18 17:30 - Physical Exam Vitals and I&O: Vital Signs Temp 98 F 01/17/18 12:00 Pulse 71 01/17/18 12:00 Resp 20 01/17/18 12:00 BP 128/71 01/17/18 12:00 Pulse Ox 98 01/17/18 12:00 Intake & Output 01/16/18 01/17/18 01/17/18 18:59 06:59 18:59 Intake Total 220.603 0708 Balance 008.830 7865 Intake: Intake, IV Amount 330.269 8300 D5-0.45NS 1,000 ml @ 100 1000 mls/hr IV .Q10H [facility] Rx#: [id number] Sodium Chloride 0.45% 1, 833.333 000 ml @ 100 mls/hr IV . Q10H [facility] Rx#:[id number] Other: Stool Characteristics Soft Formed Brown Active Medications: Current Medications Ascorbic Acid (Vitamin C) 500 mg PO DAILY [facility] Stop: 03/17/18 08:59 Last Admin: 01/17/18 08:29 Dose: Not Given Benztropine Mesylate (Cogentin) 0.5 mg PO DAILY [facility] Stop: 03/17/18 08:59 Last Admin: 01/17/18 08:29 Dose: Not Given Cyanocobalamin (Vitamin B12) 1,000 mcg PO DAILY [facility] Stop: 03/17/18 08:59 Docusate Sodium (Colace) 100 mg PO BID [facility] Stop: 03/17/18 08:59 Last Admin: 01/17/18 08:29 Dose: Not Given Famotidine (Pepcid) 20 mg PO BID [facility] Stop: 03/17/18 08:59 Last Admin: 01/17/18 08:29 Dose: Not Given Ferrous Sulfate (Iron) 325 mg PO DAILY [facility] Stop: 03/17/18 08:59 Last Admin: 01/17/18 08:29 Dose: Not Given Levofloxacin (Levaquin Pb) 500 mg in 100 mls @ 100 mls/hr IV Q24HR [facility] Stop: 03/17/18 00:00 Last Admin: 01/17/18 00:06 Dose: 100 mls/hr Dextrose/Sodium Chloride (D5-0.45ns) 1,000 mls @ 100 mls/hr IV .Q10H [facility] Stop: 03/17/18 13:44 Last Admin: 01/17/18 03:51 Dose: 100 mls/hr Ketoconazole (Nizoral) 120 ml TP Q72HR [facility] Stop: 03/18/18 08:59 Last Admin: 01/17/18 09:31 Dose: 120 ml Levothyroxine Sodium (Synthroid) 0.075 mg PO QDAC [facility] Stop: 03/17/18 07:29 Last Admin: 01/17/18 08:28 Dose: Not Given Morphine Sulfate (Morphine) 1 mg IVP Q4HR PRN PRN Reason: Abdominal Pain Stop: 03/16/18 21:59 Last Admin: 01/16/18 09:32 Dose: 1 mg Morphine Sulfate (Morphine) 2 mg IVP Q4HR PRN PRN Reason: Severe Pain Stop: 03/17/18 11:15 Last Admin: 01/17/18 13:41 Dose: 2 mg Multivitamins/Vitamin C (Theragran) 1 tab PO DAILY [facility] Stop: 03/17/18 08:59 Last Admin: 01/17/18 08:29 Dose: Not Given Ondansetron HCl (Zofran) 4 mg IV Q6H PRN PRN Reason: Nausea / Vomiting Stop: 03/17/18 11:16 Last Admin: 01/17/18 11:32 Dose: 4 mg Paroxetine HCl (Paxil) 20 mg PO DAILY [facility]; Protocol Stop: 03/17/18 08:59 Last Admin: 01/17/18 08:29 Dose: Not Given Ziprasidone (Geodon) 80 mg PO BID [facility] Stop: 03/17/18 08:59 General: alert HEENT: NC/AT, PERRLA Neck: Supple Lungs: CTAB Neurological: alert - Procedures Procedures: Procedures Procedure Code Date CHANGE DRAINAGE DEVICE IN BLADDER, EXTERNAL APPROACH [id number] 03/30/15 INSERT BLADDER CATH COMPLEX 73361 03/02/15 INSERT TEMP BLADDER CATH 19148 03/30/15 REPLACE INDWELLING CATH 57.95 03/02/15 Internal Medicine Assmt/Plan - Assessment Assessment: constipation Diabetes mellitus type 2. Hypertension. Bilateral hydronephrosis. Cystitis versus UTI. - Plan Plan: hold morphine for now gi consultation follow up labs in am will add simethicone cpm Nutritional Asmnt/Malnutr-PDOC - Dietary Evaluation Malnutrition Findings (Please click <Entered> for more info): Nutritional Asmnt/Malnutrition Start: 01/16/18 17: 12 Text: Status: Complete Freq: Protocol: Document 01/16/18 17:12 LCBERNAG (Rec: 01/16/18 17:28 BERNAG [id number]) Nutritional Asmnt/Malnutrition Patient General Information Nutritional Screening Moderate Risk Consult Diagnosis abdominal pain Pertinent Medical Hx/Surgical Hx DM, HTN Subjective Information Consult received for hx of DM. Pt seen lying in bed at time of visit, awake. Pt stated still has nausea. Pt still on NPO noted. Current Diet Order/ Nutrition Support NPO Pertinent Medications vit C, D5-0.45ns, colace, pepcid, iron, levaquin, synthroid, theragran Pertinent Labs 01/16 Na 130, glucose 105, POC 84-95 01/15 Na 127, Cl 95, glucose 96 , POC 112 Nutritional Hx/Data Height 5 ft 2 in Height (Calculated Centimeters) 157.5 Current Weight (lbs) 169 lb Weight (Calculated Kilograms) 76.7 Weight (Calculated Grams) 99597.1 [place] Body Weight 110 Body Mass Index (BMI) 30.9 Weight Status Obese GI Symptoms GI Symptoms None Last BM not indicated Difficult in: None Usual diet at home pt stated no diet restriction before Skin Integrity/Comment: intact Estimated Nutritional Goals BEE in Kcals: Adj wt of IBW Calories/Kcals/Kg 25-30 Kcals Calculated 0949-5258 Protein: Adj wt of IBW Protein g/k.8-1 Protein Calculated 45-57 Fluid: ml 1425-1710ml (1ml/kcal) Nutritional Problem 1. Problem Problem inadequate energy intake Etiology altered GI function Signs/Symptoms: pt on NPO Malnutrition Alert Is there a minimum of two criteria No selected? Query Text:Check all the applicable criteria. A minimum of two criteria are recommended for diagnosis of either severe or non-severe malnutrition. Malnutrition Related to Morbid Obesity Malnutrition related to morbid obesity No Intervention/Recommendation Comments 1. Monitor NPO status. Start clear liquid with Ensure clear when medically appropriate. Monitor glucose when oral diet states. 2. Monitor PO intake, wt, labs and skin integrity 3. F/U as high risk in 2-3 days, 01/18-01/19 Expected Outcomes/Goals Expected Outcomes/Goals 1. PO intake to meet at least 75% of nutritional needs. 2. Wt stability, skin to remain intact, labs to approach WNL.
[2018-01-17] MEDS: INSULIN ASPART SLIDING SCALE 100 UNITS/ML UNIT SUBQ SCH ×2 (16:24→21:39)
--- NOTE | 2018-01-17 19:25 | Consultation ---
DATE OF CONSULTATION: 01/16/2018 SURGICAL CONSULTATION REFERRING PHYSICIAN: Dr. Wiseman. REASON FOR CONSULTATION: Abdominal pain. Thank you for referring this patient to me. HISTORY OF PRESENT ILLNESS: This is a 47-year-old patient with Down syndrome who lives in a board and half-way. The patient's behavior was difficult to determine as the father sister that I talked to at the hospital. It appears that her affect is labile and inconsistent sometimes. PAST MEDICAL HISTORY: Includes diabetes and hypertension and apparently, some difficulty in having regular bowel movements. LABORATORY STUDIES: On admission show the CBC to be essentially normal except for low WBC at 3.8. Chemistry: Low sodium at 130. Otherwise, the rest are within normal limits. The patient underwent CT scan of the abdomen and ultrasound of the pelvis and this showed a large stool filled distal colon. No evidence of small-bowel obstruction and some dilatation of the distal esophagus. An upper GI series was ordered and there appears to be no small-bowel obstruction. There remains a large amount of stool in the distal colon and hopefully with a Gastrografin study this will be relieved. Abdominal examination is otherwise unremarkable except at times the patient apparently complains of pain, but now the patient does not and the abdomen is soft with no evidence of mass or tenderness. We will follow with you. [facility]# [id number]
[2018-01-18] MEDS: Levofloxacin 500mg/100mL 500 MG/100 ML BAG IV SCH ×2 (00:37→23:10)
[2018-01-18 06:26] LABS: % BASOPHILS 0.9 % (0.0-2.0); % LYMPHOCYTES 19.3 % (20.0-50.0); % MONOCYTES 9.8 % (2.0-10.0); HEMATOCRIT 31.9 % (41.0-60); LYMPHOCYTE ABSOLUTE 0.8 Th/cmm (1.5-3.0); MEAN CORPUSCULAR HEMOGLOBIN 34.9 pg (27.0-31.0); MEAN CORPUSCULAR HGB CONC 34.5 pg (28.0-36.0); MEAN PLATELET VOLUME 7.7 fl; MONOCYTE ABSOLUTE 0.4 Th/cmm (0.3-1.0); PLATELET COUNT 221 Th/cmm (150-400); RED BLOOD COUNT 3.16 Mil/cmm (3.80-5.10); RED CELL DISTRIBUTION WIDTH 11.9 % (11.5-20.0); WHITE BLOOD COUNT 4.2 Th/cmm (4.8-10.8)
[2018-01-18 06:31] LABS: ANION GAP 8.3 (7.0-16.0); BUN - UREA NITROGEN 9 mg/dL (7-25); CALCIUM SERUM 8.6 mg/dL (8.6-10.3); CARBON DIOXIDE 24.5 mEq/L (21.0-31.0); CHLORIDE 102 mEq/L (98-107); CREATININE - SERUM 0.9 mg/dL (0.6-1.2); GFR AFRICAN-AMERICAN > 60.0 ml/min (>90); GFR NON AFRICAN-AMERICAN > 60.0 ml/min; GLUCOSE 119 mg/dL (70-105); POTASSIUM SERUM 3.8 mEq/L (3.5-5.1); SODIUM SERUM 131 mEq/L (136-145)
[2018-01-18] MEDS: Levothyroxine 0.075 Mg Tab PO SCH (06:32)
[2018-01-18] MEDS: INSULIN ASPART SLIDING SCALE 100 UNITS/ML UNIT SUBQ SCH ×3 (06:34→18:06)
[2018-01-18] MEDS: Ferrous Sulfate 325 MG TAB PO SCH (08:39)
[2018-01-18] MEDS: Multivitamin Tab PO SCH (08:39)
--- NOTE | 2018-01-18 08:54 | GI Progress Note ---
Subjective - Review of Systems Service Date: 01/18/18 Subjective: This patient is known to our service, last seen 12/24/[address] Alford. Pt is re-admitted with abdominal pain, possible UTI. Imaging shows fecal loading. At the current time, pt reports her abd pain is intermittent and generalized. Objective - Results Result Diagrams: 01/18/18 05:22 01/18/18 05:22 Recent Labs: Laboratory Last Values WBC 4.2 Th/cmm (4.8-10.8) L 01/18/18 05:22 RBC 3.16 Mil/cmm (3.80-5.10) L 01/18/18 05:22 Hgb 11.0 gm/dL (12-16) L 01/18/18 05:22 Hct 31.9 % (41.0-60) L 01/18/18 05:22 MCV 101.0 fl (81-100) H 01/18/18 05:22 MCH 34.9 pg (27.0-31.0) H 01/18/18 05:22 MCHC Differential 34.5 pg (28.0-36.0) 01/18/18 05:22 RDW 11.9 % (11.5-20.0) 01/18/18 05:22 Plt Count 221 Th/cmm (150-400) 01/18/18 05:22 MPV 7.7 fl 01/18/18 05:22 Neutrophils % 69.0 % (40.0-80.0) 01/18/18 05:22 Lymphocytes % 19.3 % (20.0-50.0) L 01/18/18 05:22 Monocytes % 9.8 % (2.0-10.0) 01/18/18 05:22 Eosinophils % 1.0 % (0.0-5.0) 01/18/18 05:22 Basophils % 0.9 % (0.0-2.0) 01/18/18 05:22 Sodium 131 mEq/L (136-145) L 01/18/18 05:22 Potassium 3.8 mEq/L (3.5-5.1) 01/18/18 05:22 Chloride 102 mEq/L (98-107) 01/18/18 05:22 Carbon Dioxide 24.5 mEq/L (21.0-31.0) 01/18/18 05:22 Anion Gap 8.3 (7.0-16.0) 01/18/18 05:22 BUN 9 mg/dL (7-25) 01/18/18 05:22 Creatinine 0.9 mg/dL (0.6-1.2) 01/18/18 05:22 Est GFR ( Amer) > 60.0 ml/min (>90) 01/18/18 05:22 Est GFR (Non-Af Amer) > 60.0 ml/min 01/18/18 05:22 BUN/Creatinine Ratio 10.0 01/18/18 05:22 Glucose 119 mg/dL (70-105) H 01/18/18 05:22 POC Glucose 127 MG/DL (70-105) H 01/18/18 06:24 Whole Bld Lactic Acid 0.77 mmol/L (0.60-1.99) 01/15/18 18:00 Calcium 8.6 mg/dL (8.6-10.3) 01/18/18 05:22 Total Bilirubin 0.4 mg/dL (0.3-1.0) 01/15/18 18:00 AST 17 U/L (13-39) 01/15/18 18:00 ALT 9 U/L (7-52) 01/15/18 18:00 Alkaline Phosphatase 67 U/L (34-104) 01/15/18 18:00 Total Protein 6.9 gm/dL (6.0-8.3) 01/15/18 18:00 Albumin 4.0 gm/dL (3.7-5.3) 01/15/18 18:00 Globulin 2.9 gm/dL 01/15/18 18:00 Albumin/Globulin Ratio 1.4 (1.0-1.8) 01/15/18 18:00 Urine Source CLEAN C 01/15/18 18:08 Urine Color YELLOW 01/15/18 18:08 Urine Clarity CLEAR (CLEAR) 01/15/18 18:08 Urine pH 7.5 (4.6 - 8.0) 01/15/18 18:08 Ur Specific [place] <= 1.005 (1.005-1.030) 01/15/18 18:08 Urine Protein NEGATIVE mg/dL (NEGATIVE) 01/15/18 18:08 Urine Glucose (UA) NEGATIVE mg/dL (NEGATIVE) 01/15/18 18:08 Urine Ketones NEGATIVE mg/dL (NEGATIVE) 01/15/18 18:08 Urine Blood NEGATIVE (NEGATIVE) 01/15/18 18:08 Urine Nitrate NEGATIVE (NEGATIVE) 01/15/18 18:08 Urine Bilirubin NEGATIVE (NEGATIVE) 01/15/18 18:08 Urine Urobilinogen 0.2 E.U./dL (0.2 - 1.0) 01/15/18 18:08 Ur Leukocyte Esterase NEGATIVE (NEGATIVE) 01/15/18 18:08 Urine RBC 0-2 /hpf (0-5) 01/15/18 18:08 Urine WBC 0-2 /hpf (0-5) 01/15/18 18:08 Ur Epithelial Cells OCCASIONAL /lpf (FEW) 01/15/18 18:08 Urine Bacteria OCCASIONAL /hpf (NONE SEEN) 01/15/18 18:08 Urine Test NEGATIVE 01/15/18 17:30 - Physical Exam Vitals and I&O: Vital Signs Temp 98.3 F 01/18/18 07:35 Pulse 71 01/18/18 07:35 Resp 18 01/18/18 07:35 BP 116/78 01/18/18 07:35 Pulse Ox 98 01/18/18 07:35 Intake & Output 01/17/18 01/18/18 01/18/18 18:59 06:59 18:59 Intake Total 1000 Balance 1000 Weight (lbs) 75.75 kg Intake: Intake, IV Amount 1000 D5-0.45NS 1,000 ml @ 100 1000 mls/hr IV .Q10H [facility] Rx#: [id number] Other: # Voids 3 Weight Source Bedscale Active Medications: Current Medications Acetaminophen (Tylenol) 650 mg PO Q6H PRN PRN Reason: Abdominal Pain Stop: 03/18/18 15:00 Last Admin: 01/18/18 03:45 Dose: 650 mg Ascorbic Acid (Vitamin C) 500 mg PO DAILY [facility] Stop: 03/17/18 08:59 Last Admin: 01/18/18 08:40 Dose: 500 mg Benztropine Mesylate (Cogentin) 0.5 mg PO DAILY [facility] Stop: 03/17/18 08:59 Last Admin: 01/18/18 08:39 Dose: 0.5 mg Cyanocobalamin (Vitamin B12) 1,000 mcg PO DAILY [facility] Stop: 03/17/18 08:59 Last Admin: 01/18/18 08:39 Dose: 1,000 mcg Docusate Sodium (Colace) 100 mg PO BID [facility] Stop: 03/17/18 08:59 Last Admin: 01/18/18 08:39 Dose: 100 mg Famotidine (Pepcid) 20 mg PO BID [facility] Stop: 03/17/18 08:59 Last Admin: 01/18/18 08:40 Dose: 20 mg Ferrous Sulfate (Iron) 325 mg PO DAILY [facility] Stop: 03/17/18 08:59 Last Admin: 01/18/18 08:39 Dose: 325 mg Levofloxacin (Levaquin Pb) 500 mg in 100 mls @ 100 mls/hr IV Q24HR [facility] Stop: 03/17/18 00:00 Last Admin: 01/18/18 00:37 Dose: 100 mls/hr Dextrose/Sodium Chloride (D5-0.45ns) 1,000 mls @ 100 mls/hr IV .Q10H [facility] Stop: 03/17/18 13:44 Last Admin: 01/17/18 16:01 Dose: 100 mls/hr Insulin Aspart (Novolog Insulin Sliding Scale) 0 units SUBQ ACHS [facility]; Protocol Stop: 03/18/18 16:29 Last Admin: 01/18/18 06:34 Dose: Not Given Ketoconazole (Nizoral) 120 ml TP Q72HR [facility] Stop: 03/18/18 08:59 Last Admin: 01/17/18 09:31 Dose: 120 ml Levothyroxine Sodium (Synthroid) 0.075 mg PO QDAC [facility] Stop: 03/17/18 07:29 Last Admin: 01/18/18 06:32 Dose: 0.075 mg Multivitamins/Vitamin C (Theragran) 1 tab PO DAILY [facility] Stop: 03/17/18 08:59 Last Admin: 01/18/18 08:39 Dose: 1 tab Ondansetron HCl (Zofran) 4 mg IV Q6H PRN PRN Reason: Nausea / Vomiting Stop: 03/17/18 11:16 Last Admin: 01/17/18 11:32 Dose: 4 mg Paroxetine HCl (Paxil) 20 mg PO DAILY [facility]; Protocol Stop: 03/17/18 08:59 Last Admin: 01/18/18 08:39 Dose: 20 mg Simethicone (Mylicon) 80 mg PO QID PRN PRN Reason: Gas Stop: 03/18/18 14:48 Last Admin: 01/17/18 16:08 Dose: 80 mg Ziprasidone (Geodon) 80 mg PO BID [facility] Stop: 03/17/18 08:59 General: Alert HEENT: EOMI Neck: Supple Cardiovascular: Regular rate Abdomen: Bowel sounds, Soft, no Tender, no Hepatomegaly, no Splenomegaly, no Distended, no Rebound, no Mass - Procedures Procedures: Procedures Procedure Code Date CHANGE DRAINAGE DEVICE IN BLADDER, EXTERNAL APPROACH [id number] 03/30/15 INSERT BLADDER CATH COMPLEX [id number] 03/02/15 INSERT TEMP BLADDER CATH [id number] 03/30/15 REPLACE INDWELLING CATH 57.95 03/02/15 Assessment/Plan - Assessment Assessment: # Down's syndrome # Constipation # Abd pain # Diabetes # HTN The pt's clinical pain is vague, and often intermittent. Imaging all shows copious stool throughout her colon and small bowel, and it is likely that her pain is constipation related. She will require evacuation of her colonic stool burden, and then re-assessment. Plan: - slow administration of 4L golytely today to relieve obstipation - if she is still reporting abd pain after the prep, we will need to consider upper and lower endoscopy - trend hgb - cont supportive measures
--- NOTE | 2018-01-18 09:15 | General Progress Note ---
Subjective - Review of Systems Events since last encounter: patient c/o abd pain denies cp,no sob Objective - Results Result Diagrams: 01/18/18 05:22 01/18/18 05:22 Recent Labs: Laboratory Last Values WBC 4.2 Th/cmm (4.8-10.8) L 01/18/18 05:22 RBC 3.16 Mil/cmm (3.80-5.10) L 01/18/18 05:22 Hgb 11.0 gm/dL (12-16) L 01/18/18 05:22 Hct 31.9 % (41.0-60) L 01/18/18 05:22 MCV 101.0 fl (81-100) H 01/18/18 05:22 MCH 34.9 pg (27.0-31.0) H 01/18/18 05:22 MCHC Differential 34.5 pg (28.0-36.0) 01/18/18 05:22 RDW 11.9 % (11.5-20.0) 01/18/18 05:22 Plt Count 221 Th/cmm (150-400) 01/18/18 05:22 MPV 7.7 fl 01/18/18 05:22 Neutrophils % 69.0 % (40.0-80.0) 01/18/18 05:22 Lymphocytes % 19.3 % (20.0-50.0) L 01/18/18 05:22 Monocytes % 9.8 % (2.0-10.0) 01/18/18 05:22 Eosinophils % 1.0 % (0.0-5.0) 01/18/18 05:22 Basophils % 0.9 % (0.0-2.0) 01/18/18 05:22 Sodium 131 mEq/L (136-145) L 01/18/18 05:22 Potassium 3.8 mEq/L (3.5-5.1) 01/18/18 05:22 Chloride 102 mEq/L (98-107) 01/18/18 05:22 Carbon Dioxide 24.5 mEq/L (21.0-31.0) 01/18/18 05:22 Anion Gap 8.3 (7.0-16.0) 01/18/18 05:22 BUN 9 mg/dL (7-25) 01/18/18 05:22 Creatinine 0.9 mg/dL (0.6-1.2) 01/18/18 05:22 Est GFR ( Amer) > 60.0 ml/min (>90) 01/18/18 05:22 Est GFR (Non-Af Amer) > 60.0 ml/min 01/18/18 05:22 BUN/Creatinine Ratio 10.0 01/18/18 05:22 Glucose 119 mg/dL (70-105) H 01/18/18 05:22 POC Glucose 127 MG/DL (70-105) H 01/18/18 06:24 Whole Bld Lactic Acid 0.77 mmol/L (0.60-1.99) 01/15/18 18:00 Calcium 8.6 mg/dL (8.6-10.3) 01/18/18 05:22 Total Bilirubin 0.4 mg/dL (0.3-1.0) 01/15/18 18:00 AST 17 U/L (13-39) 01/15/18 18:00 ALT 9 U/L (7-52) 01/15/18 18:00 Alkaline Phosphatase 67 U/L (34-104) 01/15/18 18:00 Total Protein 6.9 gm/dL (6.0-8.3) 01/15/18 18:00 Albumin 4.0 gm/dL (3.7-5.3) 01/15/18 18:00 Globulin 2.9 gm/dL 01/15/18 18:00 Albumin/Globulin Ratio 1.4 (1.0-1.8) 01/15/18 18:00 Urine Source CLEAN C 01/15/18 18:08 Urine Color YELLOW 01/15/18 18:08 Urine Clarity CLEAR (CLEAR) 01/15/18 18:08 Urine pH 7.5 (4.6 - 8.0) 01/15/18 18:08 Ur Specific [place] <= 1.005 (1.005-1.030) 01/15/18 18:08 Urine Protein NEGATIVE mg/dL (NEGATIVE) 01/15/18 18:08 Urine Glucose (UA) NEGATIVE mg/dL (NEGATIVE) 01/15/18 18:08 Urine Ketones NEGATIVE mg/dL (NEGATIVE) 01/15/18 18:08 Urine Blood NEGATIVE (NEGATIVE) 01/15/18 18:08 Urine Nitrate NEGATIVE (NEGATIVE) 01/15/18 18:08 Urine Bilirubin NEGATIVE (NEGATIVE) 01/15/18 18:08 Urine Urobilinogen 0.2 E.U./dL (0.2 - 1.0) 01/15/18 18:08 Ur Leukocyte Esterase NEGATIVE (NEGATIVE) 01/15/18 18:08 Urine RBC 0-2 /hpf (0-5) 01/15/18 18:08 Urine WBC 0-2 /hpf (0-5) 01/15/18 18:08 Ur Epithelial Cells OCCASIONAL /lpf (FEW) 01/15/18 18:08 Urine Bacteria OCCASIONAL /hpf (NONE SEEN) 01/15/18 18:08 Urine Test NEGATIVE 01/15/18 17:30 - Physical Exam Vitals and I&O: Vital Signs Temp 98.3 F 01/18/18 07:35 Pulse 71 01/18/18 07:35 Resp 18 01/18/18 07:35 BP 116/78 01/18/18 07:35 Pulse Ox 98 01/18/18 07:35 Intake & Output 01/17/18 01/18/18 01/18/18 18:59 06:59 18:59 Intake Total 1000 Balance 1000 Weight (lbs) 75.75 kg Intake: Intake, IV Amount 1000 D5-0.45NS 1,000 ml @ 100 1000 mls/hr IV .Q10H [facility] Rx#: [id number] Other: # Voids 3 Weight Source Bedscale Active Medications: Current Medications Acetaminophen (Tylenol) 650 mg PO Q6H PRN PRN Reason: Abdominal Pain Stop: 03/18/18 15:00 Last Admin: 01/18/18 03:45 Dose: 650 mg Ascorbic Acid (Vitamin C) 500 mg PO DAILY [facility] Stop: 03/17/18 08:59 Last Admin: 01/18/18 08:40 Dose: 500 mg Benztropine Mesylate (Cogentin) 0.5 mg PO DAILY [facility] Stop: 03/17/18 08:59 Last Admin: 01/18/18 08:39 Dose: 0.5 mg Cyanocobalamin (Vitamin B12) 1,000 mcg PO DAILY [facility] Stop: 03/17/18 08:59 Last Admin: 01/18/18 08:39 Dose: 1,000 mcg Docusate Sodium (Colace) 100 mg PO BID [facility] Stop: 03/17/18 08:59 Last Admin: 01/18/18 08:39 Dose: 100 mg Famotidine (Pepcid) 20 mg PO BID [facility] Stop: 03/17/18 08:59 Last Admin: 01/18/18 08:40 Dose: 20 mg Ferrous Sulfate (Iron) 325 mg PO DAILY [facility] Stop: 03/17/18 08:59 Last Admin: 01/18/18 08:39 Dose: 325 mg Levofloxacin (Levaquin Pb) 500 mg in 100 mls @ 100 mls/hr IV Q24HR [facility] Stop: 03/17/18 00:00 Last Admin: 01/18/18 00:37 Dose: 100 mls/hr Dextrose/Sodium Chloride (D5-0.45ns) 1,000 mls @ 100 mls/hr IV .Q10H [facility] Stop: 03/17/18 13:44 Last Admin: 01/17/18 16:01 Dose: 100 mls/hr Insulin Aspart (Novolog Insulin Sliding Scale) 0 units SUBQ ACHS [facility]; Protocol Stop: 03/18/18 16:29 Last Admin: 01/18/18 06:34 Dose: Not Given Ketoconazole (Nizoral) 120 ml TP Q72HR [facility] Stop: 03/18/18 08:59 Last Admin: 01/17/18 09:31 Dose: 120 ml Levothyroxine Sodium (Synthroid) 0.075 mg PO QDAC [facility] Stop: 03/17/18 07:29 Last Admin: 01/18/18 06:32 Dose: 0.075 mg Multivitamins/Vitamin C (Theragran) 1 tab PO DAILY [facility] Stop: 03/17/18 08:59 Last Admin: 01/18/18 08:39 Dose: 1 tab Ondansetron HCl (Zofran) 4 mg IV Q6H PRN PRN Reason: Nausea / Vomiting Stop: 03/17/18 11:16 Last Admin: 01/17/18 11:32 Dose: 4 mg Paroxetine HCl (Paxil) 20 mg PO DAILY [facility]; Protocol Stop: 03/17/18 08:59 Last Admin: 01/18/18 08:39 Dose: 20 mg Simethicone (Mylicon) 80 mg PO QID PRN PRN Reason: Gas Stop: 03/18/18 14:48 Last Admin: 01/17/18 16:08 Dose: 80 mg Ziprasidone (Geodon) 80 mg PO BID [facility] Stop: 03/17/18 08:59 General: Alert HEENT: EOMI Neck: Supple Cardiovascular: Regular rate Abdomen: Bowel sounds, Soft, no Tender, no Hepatomegaly, no Splenomegaly, no Distended, no Rebound, no Mass - Procedures Procedures: Procedures Procedure Code Date CHANGE DRAINAGE DEVICE IN BLADDER, EXTERNAL APPROACH [id number] 03/30/15 INSERT BLADDER CATH COMPLEX 62261 03/02/15 INSERT TEMP BLADDER CATH 24290 03/30/15 REPLACE INDWELLING CATH 57.95 03/02/15 Nutritional Asmnt/Malnutr-PDOC - Dietary Evaluation Malnutrition Findings (Please click <Entered> for more info): Nutritional Asmnt/Malnutrition Start: 01/16/18 17: 12 Text: Status: Complete Freq: Protocol: Document 01/16/18 17:12 LCBERNAG (Rec: 01/16/18 17:28 BERNAG [email or web address]) Nutritional Asmnt/Malnutrition Patient General Information Nutritional Screening Moderate Risk Consult Diagnosis abdominal pain Pertinent Medical Hx/Surgical Hx DM, HTN Subjective Information Consult received for hx of DM. Pt seen lying in bed at time of visit, awake. Pt stated still has nausea. Pt still on NPO noted. Current Diet Order/ Nutrition Support NPO Pertinent Medications vit C, D5-0.45ns, colace, pepcid, iron, levaquin, synthroid, theragran Pertinent Labs 01/16 Na 130, glucose 105, POC 84-95 01/15 Na 127, Cl 95, glucose 96 , POC 112 Nutritional Hx/Data Height 1.57 m Height (Calculated Centimeters) 157.5 Current Weight (lbs) 76.657 kg Weight (Calculated Kilograms) 76.7 Weight (Calculated Grams) 90684.1 [place] Body Weight 110 Body Mass Index (BMI) 30.9 Weight Status Obese GI Symptoms GI Symptoms None Last BM not indicated Difficult in: None Usual diet at home pt stated no diet restriction before Skin Integrity/Comment: intact Estimated Nutritional Goals BEE in Kcals: Adj wt of IBW Calories/Kcals/Kg 25-30 Kcals Calculated 7172-5341 Protein: Adj wt of IBW Protein g/k.8-1 Protein Calculated 45-57 Fluid: ml 1425-1710ml (1ml/kcal) Nutritional Problem 1. Problem Problem inadequate energy intake Etiology altered GI function Signs/Symptoms: pt on NPO Malnutrition Alert Is there a minimum of two criteria No selected? Query Text:Check all the applicable criteria. A minimum of two criteria are recommended for diagnosis of either severe or non-severe malnutrition. Malnutrition Related to Morbid Obesity Malnutrition related to morbid obesity No Intervention/Recommendation Comments 1. Monitor NPO status. Start clear liquid with Ensure clear when medically appropriate. Monitor glucose when oral diet states. 2. Monitor PO intake, wt, labs and skin integrity 3. F/U as high risk in 2-3 days, 01/18-01/19 Expected Outcomes/Goals Expected Outcomes/Goals 1. PO intake to meet at least 75% of nutritional needs. 2. Wt stability, skin to remain intact, labs to approach WNL.
--- NOTE | 2018-01-18 14:37 | General Progress Note ---
Subjective - Review of Systems Service Date: 01/18/18 Events since last encounter: tolerating diet, still complains of pain having BM labs ok Objective - Results Result Diagrams: 01/18/18 05:22 01/18/18 05:22 Recent Labs: Laboratory Last Values WBC 4.2 Th/cmm (4.8-10.8) L 01/18/18 05:22 RBC 3.16 Mil/cmm (3.80-5.10) L 01/18/18 05:22 Hgb 11.0 gm/dL (12-16) L 01/18/18 05:22 Hct 31.9 % (41.0-60) L 01/18/18 05:22 MCV 101.0 fl (81-100) H 01/18/18 05:22 MCH 34.9 pg (27.0-31.0) H 01/18/18 05:22 MCHC Differential 34.5 pg (28.0-36.0) 01/18/18 05:22 RDW 11.9 % (11.5-20.0) 01/18/18 05:22 Plt Count 221 Th/cmm (150-400) 01/18/18 05:22 MPV 7.7 fl 01/18/18 05:22 Neutrophils % 69.0 % (40.0-80.0) 01/18/18 05:22 Lymphocytes % 19.3 % (20.0-50.0) L 01/18/18 05:22 Monocytes % 9.8 % (2.0-10.0) 01/18/18 05:22 Eosinophils % 1.0 % (0.0-5.0) 01/18/18 05:22 Basophils % 0.9 % (0.0-2.0) 01/18/18 05:22 Sodium 131 mEq/L (136-145) L 01/18/18 05:22 Potassium 3.8 mEq/L (3.5-5.1) 01/18/18 05:22 Chloride 102 mEq/L (98-107) 01/18/18 05:22 Carbon Dioxide 24.5 mEq/L (21.0-31.0) 01/18/18 05:22 Anion Gap 8.3 (7.0-16.0) 01/18/18 05:22 BUN 9 mg/dL (7-25) 01/18/18 05:22 Creatinine 0.9 mg/dL (0.6-1.2) 01/18/18 05:22 Est GFR ( Amer) > 60.0 ml/min (>90) 01/18/18 05:22 Est GFR (Non-Af Amer) > 60.0 ml/min 01/18/18 05:22 BUN/Creatinine Ratio 10.0 01/18/18 05:22 Glucose 119 mg/dL (70-105) H 01/18/18 05:22 POC Glucose 122 MG/DL (70 - 105) H 01/18/18 11:21 Whole Bld Lactic Acid 0.77 mmol/L (0.60-1.99) 01/15/18 18:00 Calcium 8.6 mg/dL (8.6-10.3) 01/18/18 05:22 Total Bilirubin 0.4 mg/dL (0.3-1.0) 01/15/18 18:00 AST 17 U/L (13-39) 01/15/18 18:00 ALT 9 U/L (7-52) 01/15/18 18:00 Alkaline Phosphatase 67 U/L (34-104) 01/15/18 18:00 Total Protein 6.9 gm/dL (6.0-8.3) 01/15/18 18:00 Albumin 4.0 gm/dL (3.7-5.3) 01/15/18 18:00 Globulin 2.9 gm/dL 01/15/18 18:00 Albumin/Globulin Ratio 1.4 (1.0-1.8) 01/15/18 18:00 Urine Source CLEAN C 01/15/18 18:08 Urine Color YELLOW 01/15/18 18:08 Urine Clarity CLEAR (CLEAR) 01/15/18 18:08 Urine pH 7.5 (4.6 - 8.0) 01/15/18 18:08 Ur Specific [place] <= 1.005 (1.005-1.030) 01/15/18 18:08 Urine Protein NEGATIVE mg/dL (NEGATIVE) 01/15/18 18:08 Urine Glucose (UA) NEGATIVE mg/dL (NEGATIVE) 01/15/18 18:08 Urine Ketones NEGATIVE mg/dL (NEGATIVE) 01/15/18 18:08 Urine Blood NEGATIVE (NEGATIVE) 01/15/18 18:08 Urine Nitrate NEGATIVE (NEGATIVE) 01/15/18 18:08 Urine Bilirubin NEGATIVE (NEGATIVE) 01/15/18 18:08 Urine Urobilinogen 0.2 E.U./dL (0.2 - 1.0) 01/15/18 18:08 Ur Leukocyte Esterase NEGATIVE (NEGATIVE) 01/15/18 18:08 Urine RBC 0-2 /hpf (0-5) 01/15/18 18:08 Urine WBC 0-2 /hpf (0-5) 01/15/18 18:08 Ur Epithelial Cells OCCASIONAL /lpf (FEW) 01/15/18 18:08 Urine Bacteria OCCASIONAL /hpf (NONE SEEN) 01/15/18 18:08 Urine Test NEGATIVE 01/15/18 17:30 - Physical Exam Vitals and I&O: Vital Signs Temp 98.1 F 01/18/18 12:13 Pulse 63 01/18/18 12:13 Resp 18 01/18/18 12:13 BP 122/72 01/18/18 12:13 Pulse Ox 98 01/18/18 12:13 Intake & Output 01/17/18 01/18/18 01/18/18 18:59 06:59 18:59 Intake Total 1000 Balance 1000 Weight (lbs) 75.75 kg Intake: Intake, IV Amount 1000 D5-0.45NS 1,000 ml @ 100 1000 mls/hr IV .Q10H [facility] Rx#: [id number] Other: # Voids 3 Weight Source Bedscale Active Medications: Current Medications Acetaminophen (Tylenol) 650 mg PO Q6H PRN PRN Reason: Abdominal Pain Stop: 03/18/18 15:00 Last Admin: 01/18/18 12:49 Dose: 650 mg Ascorbic Acid (Vitamin C) 500 mg PO DAILY [facility] Stop: 03/17/18 08:59 Last Admin: 01/18/18 08:40 Dose: 500 mg Benztropine Mesylate (Cogentin) 0.5 mg PO DAILY [facility] Stop: 03/17/18 08:59 Last Admin: 01/18/18 08:39 Dose: 0.5 mg Cyanocobalamin (Vitamin B12) 1,000 mcg PO DAILY [facility] Stop: 03/17/18 08:59 Last Admin: 01/18/18 08:39 Dose: 1,000 mcg Docusate Sodium (Colace) 100 mg PO BID [facility] Stop: 03/17/18 08:59 Last Admin: 01/18/18 08:39 Dose: 100 mg Famotidine (Pepcid) 20 mg PO BID [facility] Stop: 03/17/18 08:59 Last Admin: 01/18/18 08:40 Dose: 20 mg Ferrous Sulfate (Iron) 325 mg PO DAILY [facility] Stop: 03/17/18 08:59 Last Admin: 01/18/18 08:39 Dose: 325 mg Levofloxacin (Levaquin Pb) 500 mg in 100 mls @ 100 mls/hr IV Q24HR [facility] Stop: 03/17/18 00:00 Last Admin: 01/18/18 00:37 Dose: 100 mls/hr Dextrose/Sodium Chloride (D5-0.45ns) 1,000 mls @ 100 mls/hr IV .Q10H [facility] Stop: 03/17/18 13:44 Last Admin: 01/17/18 16:01 Dose: 100 mls/hr Insulin Aspart (Novolog Insulin Sliding Scale) 0 units SUBQ ACHS [facility]; Protocol Stop: 03/18/18 16:29 Last Admin: 01/18/18 11:36 Dose: Not Given Ketoconazole (Nizoral) 120 ml TP Q72HR [facility] Stop: 03/18/18 08:59 Last Admin: 01/17/18 09:31 Dose: 120 ml Levothyroxine Sodium (Synthroid) 0.075 mg PO QDAC [facility] Stop: 03/17/18 07:29 Last Admin: 01/18/18 06:32 Dose: 0.075 mg Multivitamins/Vitamin C (Theragran) 1 tab PO DAILY [facility] Stop: 03/17/18 08:59 Last Admin: 01/18/18 08:39 Dose: 1 tab Ondansetron HCl (Zofran) 4 mg IV Q6H PRN PRN Reason: Nausea / Vomiting Stop: 03/17/18 11:16 Last Admin: 01/17/18 11:32 Dose: 4 mg Paroxetine HCl (Paxil) 20 mg PO DAILY [facility]; Protocol Stop: 03/17/18 08:59 Last Admin: 01/18/18 08:39 Dose: 20 mg Simethicone (Mylicon) 80 mg PO QID PRN PRN Reason: Gas Stop: 03/18/18 14:48 Last Admin: 01/17/18 16:08 Dose: 80 mg Ziprasidone (Geodon) 80 mg PO BID [facility] Stop: 03/17/18 08:59 General: Alert HEENT: EOMI Neck: Supple Cardiovascular: Regular rate Abdomen: Bowel sounds, Soft, no Tender, no Hepatomegaly, no Splenomegaly, no Distended, no Rebound, no Mass - Procedures Procedures: Procedures Procedure Code Date CHANGE DRAINAGE DEVICE IN BLADDER, EXTERNAL APPROACH [id number] 03/30/15 INSERT BLADDER CATH COMPLEX 08251 03/02/15 INSERT TEMP BLADDER CATH 88861 03/30/15 REPLACE INDWELLING CATH 57.95 03/02/15 Nutritional Asmnt/Malnutr-PDOC - Dietary Evaluation Malnutrition Findings (Please click <Entered> for more info): Nutritional Asmnt/Malnutrition Start: 01/16/18 17: 12 Text: Status: Complete Freq: Protocol: Document 01/16/18 17:12 SAL (Rec: 01/16/18 17:28 BERNA [email or web address]) Nutritional Asmnt/Malnutrition Patient General Information Nutritional Screening Moderate Risk Consult Diagnosis abdominal pain Pertinent Medical Hx/Surgical Hx DM, HTN Subjective Information Consult received for hx of DM. Pt seen lying in bed at time of visit, awake. Pt stated still has nausea. Pt still on NPO noted. Current Diet Order/ Nutrition Support NPO Pertinent Medications vit C, D5-0.45ns, colace, pepcid, iron, levaquin, synthroid, theragran Pertinent Labs 01/16 Na 130, glucose 105, POC 84-95 01/15 Na 127, Cl 95, glucose 96 , POC 112 Nutritional Hx/Data Height 1.57 m Height (Calculated Centimeters) 157.5 Current Weight (lbs) 76.657 kg Weight (Calculated Kilograms) 76.7 Weight (Calculated Grams) 63325.1 [place] Body Weight 110 Body Mass Index (BMI) 30.9 Weight Status Obese GI Symptoms GI Symptoms None Last BM not indicated Difficult in: None Usual diet at home pt stated no diet restriction before Skin Integrity/Comment: intact Estimated Nutritional Goals BEE in Kcals: Adj wt of IBW Calories/Kcals/Kg 25-30 Kcals Calculated 7450-6140 Protein: Adj wt of IBW Protein g/k.8-1 Protein Calculated 45-57 Fluid: ml 1425-1710ml (1ml/kcal) Nutritional Problem 1. Problem Problem inadequate energy intake Etiology altered GI function Signs/Symptoms: pt on NPO Malnutrition Alert Is there a minimum of two criteria No selected? Query Text:Check all the applicable criteria. A minimum of two criteria are recommended for diagnosis of either severe or non-severe malnutrition. Malnutrition Related to Morbid Obesity Malnutrition related to morbid obesity No Intervention/Recommendation Comments 1. Monitor NPO status. Start clear liquid with Ensure clear when medically appropriate. Monitor glucose when oral diet states. 2. Monitor PO intake, wt, labs and skin integrity 3. F/U as high risk in 2-3 days, 01/18-01/19 Expected Outcomes/Goals Expected Outcomes/Goals 1. PO intake to meet at least 75% of nutritional needs. 2. Wt stability, skin to remain intact, labs to approach WNL.
--- NOTE | 2018-01-18 23:54 | Infectious Disease Prog Note ---
Infectious Disease Subjective - Review of Systems Service Date: 01/18/18 Subjective: Doing well. No event. Infectious Disease Objective - Results Result Diagrams: 01/18/18 05:22 01/18/18 05:22 Recent Labs: Laboratory Last Values WBC 4.2 Th/cmm (4.8-10.8) L 01/18/18 05:22 RBC 3.16 Mil/cmm (3.80-5.10) L 01/18/18 05:22 Hgb 11.0 gm/dL (12-16) L 01/18/18 05:22 Hct 31.9 % (41.0-60) L 01/18/18 05:22 MCV 101.0 fl (81-100) H 01/18/18 05:22 MCH 34.9 pg (27.0-31.0) H 01/18/18 05:22 MCHC Differential 34.5 pg (28.0-36.0) 01/18/18 05:22 RDW 11.9 % (11.5-20.0) 01/18/18 05:22 Plt Count 221 Th/cmm (150-400) 01/18/18 05:22 MPV 7.7 fl 01/18/18 05:22 Neutrophils % 69.0 % (40.0-80.0) 01/18/18 05:22 Lymphocytes % 19.3 % (20.0-50.0) L 01/18/18 05:22 Monocytes % 9.8 % (2.0-10.0) 01/18/18 05:22 Eosinophils % 1.0 % (0.0-5.0) 01/18/18 05:22 Basophils % 0.9 % (0.0-2.0) 01/18/18 05:22 Sodium 131 mEq/L (136-145) L 01/18/18 05:22 Potassium 3.8 mEq/L (3.5-5.1) 01/18/18 05:22 Chloride 102 mEq/L (98-107) 01/18/18 05:22 Carbon Dioxide 24.5 mEq/L (21.0-31.0) 01/18/18 05:22 Anion Gap 8.3 (7.0-16.0) 01/18/18 05:22 BUN 9 mg/dL (7-25) 01/18/18 05:22 Creatinine 0.9 mg/dL (0.6-1.2) 01/18/18 05:22 Est GFR ( Amer) > 60.0 ml/min (>90) 01/18/18 05:22 Est GFR (Non-Af Amer) > 60.0 ml/min 01/18/18 05:22 BUN/Creatinine Ratio 10.0 01/18/18 05:22 Glucose 119 mg/dL (70-105) H 01/18/18 05:22 POC Glucose 135 MG/DL (70 - 105) H 01/18/18 17:45 Whole Bld Lactic Acid 0.77 mmol/L (0.60-1.99) 01/15/18 18:00 Calcium 8.6 mg/dL (8.6-10.3) 01/18/18 05:22 Total Bilirubin 0.4 mg/dL (0.3-1.0) 01/15/18 18:00 AST 17 U/L (13-39) 01/15/18 18:00 ALT 9 U/L (7-52) 01/15/18 18:00 Alkaline Phosphatase 67 U/L (34-104) 01/15/18 18:00 Total Protein 6.9 gm/dL (6.0-8.3) 01/15/18 18:00 Albumin 4.0 gm/dL (3.7-5.3) 01/15/18 18:00 Globulin 2.9 gm/dL 01/15/18 18:00 Albumin/Globulin Ratio 1.4 (1.0-1.8) 01/15/18 18:00 Urine Source CLEAN C 01/15/18 18:08 Urine Color YELLOW 01/15/18 18:08 Urine Clarity CLEAR (CLEAR) 01/15/18 18:08 Urine pH 7.5 (4.6 - 8.0) 01/15/18 18:08 Ur Specific [place] <= 1.005 (1.005-1.030) 01/15/18 18:08 Urine Protein NEGATIVE mg/dL (NEGATIVE) 01/15/18 18:08 Urine Glucose (UA) NEGATIVE mg/dL (NEGATIVE) 01/15/18 18:08 Urine Ketones NEGATIVE mg/dL (NEGATIVE) 01/15/18 18:08 Urine Blood NEGATIVE (NEGATIVE) 01/15/18 18:08 Urine Nitrate NEGATIVE (NEGATIVE) 01/15/18 18:08 Urine Bilirubin NEGATIVE (NEGATIVE) 01/15/18 18:08 Urine Urobilinogen 0.2 E.U./dL (0.2 - 1.0) 01/15/18 18:08 Ur Leukocyte Esterase NEGATIVE (NEGATIVE) 01/15/18 18:08 Urine RBC 0-2 /hpf (0-5) 01/15/18 18:08 Urine WBC 0-2 /hpf (0-5) 01/15/18 18:08 Ur Epithelial Cells OCCASIONAL /lpf (FEW) 01/15/18 18:08 Urine Bacteria OCCASIONAL /hpf (NONE SEEN) 01/15/18 18:08 Urine Test NEGATIVE 01/15/18 17:30 - Physical Exam Vitals and I&O: Vital Signs Temp 98.2 F 01/18/18 16:11 Pulse 65 01/18/18 16:11 Resp 18 01/18/18 16:11 BP 126/81 01/18/18 16:11 Pulse Ox 98 01/18/18 16:11 Intake & Output 01/18/18 01/18/18 01/19/18 06:59 18:59 06:59 Intake Total 100 2500 Balance 100 2500 Weight (lbs) 75.75 kg 75.75 kg Intake: Intake, IV Amount 100 Levofloxacin 500mg/100mL 100 500 mg In 100 ml @ 100 mls/hr IV Q24HR [facility] Rx#: [id number] Oral 2500 Other: # Voids 3 8 # Bowel Movements 5 Weight Source Bedscale Bedscale Active Medications: Current Medications Acetaminophen (Tylenol) 650 mg PO Q6H PRN PRN Reason: Abdominal Pain Stop: 03/18/18 15:00 Last Admin: 01/18/18 12:49 Dose: 650 mg Ascorbic Acid (Vitamin C) 500 mg PO DAILY [facility] Stop: 03/17/18 08:59 Last Admin: 01/18/18 08:40 Dose: 500 mg Benztropine Mesylate (Cogentin) 0.5 mg PO DAILY [facility] Stop: 03/17/18 08:59 Last Admin: 01/18/18 08:39 Dose: 0.5 mg Cyanocobalamin (Vitamin B12) 1,000 mcg PO DAILY [facility] Stop: 03/17/18 08:59 Last Admin: 01/18/18 08:39 Dose: 1,000 mcg Docusate Sodium (Colace) 100 mg PO BID [facility] Stop: 03/17/18 08:59 Last Admin: 01/18/18 17:01 Dose: 100 mg Famotidine (Pepcid) 20 mg PO BID [facility] Stop: 03/17/18 08:59 Last Admin: 01/18/18 17:01 Dose: 20 mg Ferrous Sulfate (Iron) 325 mg PO DAILY [facility] Stop: 03/17/18 08:59 Last Admin: 01/18/18 08:39 Dose: 325 mg Levofloxacin (Levaquin Pb) 500 mg in 100 mls @ 100 mls/hr IV Q24HR [facility] Stop: 03/17/18 00:00 Last Admin: 01/18/18 23:10 Dose: 100 mls/hr Dextrose/Sodium Chloride (D5-0.45ns) 1,000 mls @ 100 mls/hr IV .Q10H [facility] Stop: 03/17/18 13:44 Last Admin: 01/17/18 16:01 Dose: 100 mls/hr Insulin Aspart (Novolog Insulin Sliding Scale) 0 units SUBQ ACHS [facility]; Protocol Stop: 03/18/18 16:29 Last Admin: 01/18/18 18:06 Dose: Not Given Ketoconazole (Nizoral) 120 ml TP Q72HR [facility] Stop: 03/18/18 08:59 Last Admin: 01/17/18 09:31 Dose: 120 ml Levothyroxine Sodium (Synthroid) 0.075 mg PO QDAC [facility] Stop: 03/17/18 07:29 Last Admin: 01/18/18 06:32 Dose: 0.075 mg Multivitamins/Vitamin C (Theragran) 1 tab PO DAILY [facility] Stop: 03/17/18 08:59 Last Admin: 01/18/18 08:39 Dose: 1 tab Ondansetron HCl (Zofran) 4 mg IV Q6H PRN PRN Reason: Nausea / Vomiting Stop: 03/17/18 11:16 Last Admin: 01/17/18 11:32 Dose: 4 mg Paroxetine HCl (Paxil) 20 mg PO DAILY [facility]; Protocol Stop: 03/17/18 08:59 Last Admin: 01/18/18 08:39 Dose: 20 mg Simethicone (Mylicon) 80 mg PO QID PRN PRN Reason: Gas Stop: 03/18/18 14:48 Last Admin: 01/17/18 16:08 Dose: 80 mg Ziprasidone (Geodon) 80 mg PO BID [facility] Stop: 03/17/18 08:59 General: no acute distress, well developed, well nourished - Procedures Procedures: Procedures Procedure Code Date CHANGE DRAINAGE DEVICE IN BLADDER, EXTERNAL APPROACH [id number] 03/30/15 INSERT BLADDER CATH COMPLEX 97615 03/02/15 INSERT TEMP BLADDER CATH 67172 03/30/15 REPLACE INDWELLING CATH 57.95 03/02/15 Infectious Disease Assmt/Plan - Assessment Assessment: 1. Left lower quadrant pain, left flank pain, unknown etiology. 2. Diabetes mellitus type 2. 3. Hypertension. 4. Bilateral hydronephrosis. 5. Cystitis versus UTI. - Plan Plan: Continue Levaquin. Nutritional Asmnt/Malnutr-PDOC - Dietary Evaluation Malnutrition Findings (Please click <Entered> for more info): Nutritional Asmnt/Malnutrition Start: 01/16/18 17: 12 Text: Status: Complete Freq: Protocol: Document 01/16/18 17:12 LCHENG (Rec: 01/16/18 17:28 [email or web address] [id number]) Nutritional Asmnt/Malnutrition Patient General Information Nutritional Screening Moderate Risk Consult Diagnosis abdominal pain Pertinent Medical Hx/Surgical Hx DM, HTN Subjective Information Consult received for hx of DM. Pt seen lying in bed at time of visit, awake. Pt stated still has nausea. Pt still on NPO noted. Current Diet Order/ Nutrition Support NPO Pertinent Medications vit C, D5-0.45ns, colace, pepcid, iron, levaquin, synthroid, theragran Pertinent Labs 01/16 Na 130, glucose 105, POC 84-95 01/15 Na 127, Cl 95, glucose 96 , POC 112 Nutritional Hx/Data Height 1.57 m Height (Calculated Centimeters) 157.5 Current Weight (lbs) 76.657 kg Weight (Calculated Kilograms) 76.7 Weight (Calculated Grams) 39886.1 Shiro Body Weight 110 Body Mass Index (BMI) 30.9 Weight Status Obese GI Symptoms GI Symptoms None Last BM not indicated Difficult in: None Usual diet at home pt stated no diet restriction before Skin Integrity/Comment: intact Estimated Nutritional Goals BEE in Kcals: Adj wt of IBW Calories/Kcals/Kg 25-30 Kcals Calculated 5243-8925 Protein: Adj wt of IBW Protein g/k.8-1 Protein Calculated 45-57 Fluid: ml 1425-1710ml (1ml/kcal) Nutritional Problem 1. Problem Problem inadequate energy intake Etiology altered GI function Signs/Symptoms: pt on NPO Malnutrition Alert Is there a minimum of two criteria No selected? Query Text:Check all the applicable criteria. A minimum of two criteria are recommended for diagnosis of either severe or non-severe malnutrition. Malnutrition Related to Morbid Obesity Malnutrition related to morbid obesity No Intervention/Recommendation Comments 1. Monitor NPO status. Start clear liquid with Ensure clear when medically appropriate. Monitor glucose when oral diet states. 2. Monitor PO intake, wt, labs and skin integrity 3. F/U as high risk in 2-3 days, 01/18-01/19 Expected Outcomes/Goals Expected Outcomes/Goals 1. PO intake to meet at least 75% of nutritional needs. 2. Wt stability, skin to remain intact, labs to approach WNL.
[2018-01-19] MEDS: INSULIN ASPART SLIDING SCALE 100 UNITS/ML UNIT SUBQ SCH ×5 (06:53→22:23)
[2018-01-19] MEDS: D5-0.45NS 1,000 ML IV SCH (06:58)
[2018-01-19] MEDS: Levothyroxine 0.075 Mg Tab PO SCH (06:58)
--- NOTE | 2018-01-19 08:22 | GI Progress Note ---
Subjective - Review of Systems Service Date: 01/19/18 Subjective: Has had several significant BMs after golytely last night. Objective - Results Result Diagrams: 01/18/18 05:22 01/18/18 05:22 Recent Labs: Laboratory Last Values WBC 4.2 Th/cmm (4.8-10.8) L 01/18/18 05:22 RBC 3.16 Mil/cmm (3.80-5.10) L 01/18/18 05:22 Hgb 11.0 gm/dL (12-16) L 01/18/18 05:22 Hct 31.9 % (41.0-60) L 01/18/18 05:22 MCV 101.0 fl (81-100) H 01/18/18 05:22 MCH 34.9 pg (27.0-31.0) H 01/18/18 05:22 MCHC Differential 34.5 pg (28.0-36.0) 01/18/18 05:22 RDW 11.9 % (11.5-20.0) 01/18/18 05:22 Plt Count 221 Th/cmm (150-400) 01/18/18 05:22 MPV 7.7 fl 01/18/18 05:22 Neutrophils % 69.0 % (40.0-80.0) 01/18/18 05:22 Lymphocytes % 19.3 % (20.0-50.0) L 01/18/18 05:22 Monocytes % 9.8 % (2.0-10.0) 01/18/18 05:22 Eosinophils % 1.0 % (0.0-5.0) 01/18/18 05:22 Basophils % 0.9 % (0.0-2.0) 01/18/18 05:22 Sodium 131 mEq/L (136-145) L 01/18/18 05:22 Potassium 3.8 mEq/L (3.5-5.1) 01/18/18 05:22 Chloride 102 mEq/L (98-107) 01/18/18 05:22 Carbon Dioxide 24.5 mEq/L (21.0-31.0) 01/18/18 05:22 Anion Gap 8.3 (7.0-16.0) 01/18/18 05:22 BUN 9 mg/dL (7-25) 01/18/18 05:22 Creatinine 0.9 mg/dL (0.6-1.2) 01/18/18 05:22 Est GFR ( Amer) > 60.0 ml/min (>90) 01/18/18 05:22 Est GFR (Non-Af Amer) > 60.0 ml/min 01/18/18 05:22 BUN/Creatinine Ratio 10.0 01/18/18 05:22 Glucose 119 mg/dL (70-105) H 01/18/18 05:22 POC Glucose 135 MG/DL (70 - 105) H 01/18/18 17:45 Whole Bld Lactic Acid 0.77 mmol/L (0.60-1.99) 01/15/18 18:00 Calcium 8.6 mg/dL (8.6-10.3) 01/18/18 05:22 Total Bilirubin 0.4 mg/dL (0.3-1.0) 01/15/18 18:00 AST 17 U/L (13-39) 01/15/18 18:00 ALT 9 U/L (7-52) 01/15/18 18:00 Alkaline Phosphatase 67 U/L (34-104) 01/15/18 18:00 Total Protein 6.9 gm/dL (6.0-8.3) 01/15/18 18:00 Albumin 4.0 gm/dL (3.7-5.3) 01/15/18 18:00 Globulin 2.9 gm/dL 01/15/18 18:00 Albumin/Globulin Ratio 1.4 (1.0-1.8) 01/15/18 18:00 Urine Source CLEAN C 01/15/18 18:08 Urine Color YELLOW 01/15/18 18:08 Urine Clarity CLEAR (CLEAR) 01/15/18 18:08 Urine pH 7.5 (4.6 - 8.0) 01/15/18 18:08 Ur Specific [place] <= 1.005 (1.005-1.030) 01/15/18 18:08 Urine Protein NEGATIVE mg/dL (NEGATIVE) 01/15/18 18:08 Urine Glucose (UA) NEGATIVE mg/dL (NEGATIVE) 01/15/18 18:08 Urine Ketones NEGATIVE mg/dL (NEGATIVE) 01/15/18 18:08 Urine Blood NEGATIVE (NEGATIVE) 01/15/18 18:08 Urine Nitrate NEGATIVE (NEGATIVE) 01/15/18 18:08 Urine Bilirubin NEGATIVE (NEGATIVE) 01/15/18 18:08 Urine Urobilinogen 0.2 E.U./dL (0.2 - 1.0) 01/15/18 18:08 Ur Leukocyte Esterase NEGATIVE (NEGATIVE) 01/15/18 18:08 Urine RBC 0-2 /hpf (0-5) 01/15/18 18:08 Urine WBC 0-2 /hpf (0-5) 01/15/18 18:08 Ur Epithelial Cells OCCASIONAL /lpf (FEW) 01/15/18 18:08 Urine Bacteria OCCASIONAL /hpf (NONE SEEN) 01/15/18 18:08 Urine Test NEGATIVE 01/15/18 17:30 - Physical Exam Vitals and I&O: Vital Signs Temp 98.0 F 01/19/18 07:44 Pulse 62 01/19/18 07:44 Resp 18 01/19/18 07:44 BP 120/78 01/19/18 07:44 Pulse Ox 98 01/19/18 07:44 Intake & Output 01/18/18 01/19/18 01/19/18 18:59 06:59 18:59 Intake Total 2500 Balance 2500 Weight (lbs) 75.75 kg Intake: Oral 2500 Other: # Voids 8 # Bowel Movements 5 Weight Source Bedscale Active Medications: Current Medications Acetaminophen (Tylenol) 650 mg PO Q6H PRN PRN Reason: Abdominal Pain Stop: 03/18/18 15:00 Last Admin: 01/18/18 12:49 Dose: 650 mg Ascorbic Acid (Vitamin C) 500 mg PO DAILY [facility] Stop: 03/17/18 08:59 Last Admin: 01/18/18 08:40 Dose: 500 mg Benztropine Mesylate (Cogentin) 0.5 mg PO DAILY [facility] Stop: 03/17/18 08:59 Last Admin: 01/18/18 08:39 Dose: 0.5 mg Cyanocobalamin (Vitamin B12) 1,000 mcg PO DAILY [facility] Stop: 03/17/18 08:59 Last Admin: 01/18/18 08:39 Dose: 1,000 mcg Docusate Sodium (Colace) 100 mg PO BID [facility] Stop: 03/17/18 08:59 Last Admin: 01/18/18 17:01 Dose: 100 mg Famotidine (Pepcid) 20 mg PO BID [facility] Stop: 03/17/18 08:59 Last Admin: 01/18/18 17:01 Dose: 20 mg Ferrous Sulfate (Iron) 325 mg PO DAILY [facility] Stop: 03/17/18 08:59 Last Admin: 01/18/18 08:39 Dose: 325 mg Levofloxacin (Levaquin Pb) 500 mg in 100 mls @ 100 mls/hr IV Q24HR [facility] Stop: 03/17/18 00:00 Last Admin: 01/18/18 23:10 Dose: 100 mls/hr Dextrose/Sodium Chloride (D5-0.45ns) 1,000 mls @ 100 mls/hr IV .Q10H [facility] Stop: 03/17/18 13:44 Last Admin: 01/19/18 06:58 Dose: 100 mls/hr Insulin Aspart (Novolog Insulin Sliding Scale) 0 units SUBQ ACHS [facility]; Protocol Stop: 03/18/18 16:29 Last Admin: 01/19/18 07:07 Dose: Not Given Ketoconazole (Nizoral) 120 ml TP Q72HR [facility] Stop: 03/18/18 08:59 Last Admin: 01/17/18 09:31 Dose: 120 ml Levothyroxine Sodium (Synthroid) 0.075 mg PO QDAC [facility] Stop: 03/17/18 07:29 Last Admin: 01/19/18 06:58 Dose: 0.075 mg Multivitamins/Vitamin C (Theragran) 1 tab PO DAILY [facility] Stop: 03/17/18 08:59 Last Admin: 01/18/18 08:39 Dose: 1 tab Ondansetron HCl (Zofran) 4 mg IV Q6H PRN PRN Reason: Nausea / Vomiting Stop: 03/17/18 11:16 Last Admin: 01/17/18 11:32 Dose: 4 mg Paroxetine HCl (Paxil) 20 mg PO DAILY [facility]; Protocol Stop: 03/17/18 08:59 Last Admin: 01/18/18 08:39 Dose: 20 mg Simethicone (Mylicon) 80 mg PO QID PRN PRN Reason: Gas Stop: 03/18/18 14:48 Last Admin: 01/17/18 16:08 Dose: 80 mg Ziprasidone (Geodon) 80 mg PO BID [facility] Stop: 03/17/18 08:59 General: Alert HEENT: EOMI Neck: Supple Cardiovascular: Regular rate Abdomen: Bowel sounds, Soft, no Tender, no Hepatomegaly, no Splenomegaly, no Distended, no Rebound, no Mass - Procedures Procedures: Procedures Procedure Code Date CHANGE DRAINAGE DEVICE IN BLADDER, EXTERNAL APPROACH [id number] 03/30/15 INSERT BLADDER CATH COMPLEX 64595 03/02/15 INSERT TEMP BLADDER CATH [id number] 03/30/15 REPLACE INDWELLING CATH 57.95 03/02/15 Assessment/Plan - Assessment Assessment: # Down's syndrome # Constipation # Abd pain # Diabetes # HTN The pt's clinical pain is vague, and often intermittent. Imaging all shows copious stool throughout her colon and small bowel, and it is likely that her pain is constipation related. Bowel prep given on 01/18, and pt has had several large BMs. She seems to be more comfortable after this, and we can get KUB to see if significant progress was made. Plan: - KUB to assess obstipation status after laxative therapy - consider endoscopy if her pain returns, although she is feeling better now after BMs - trend hgb - cont supportive measures
[2018-01-19] MEDS: Ferrous Sulfate 325 MG TAB PO SCH (08:44)
[2018-01-19] MEDS: Multivitamin Tab PO SCH (08:44)
--- NOTE | 2018-01-19 10:14 | Diagnostic Imaging Report ---
KUB abdominal film (portable) HISTORY: Pain There is a nonspecific gas pattern of nondilated bowel. No free intraperitoneal air. Scoliosis noted in the thoracolumbar spine. IMPRESSION: 1. Nonspecific bowel gas pattern with no acute radiographic abnormalities
--- NOTE | 2018-01-19 15:47 | History & Physical ---
ADMIT DATE: 01/19/2018 HISTORY OF PRESENT ILLNESS: This patient 47-year-old female who came with the left flank abdominal pain for 2 days The patient was seen in the Emergency Room. The patient with history of hypertension, diabetes and also history of mental challenge and the patient is well-developed and well-nourished female. PHYSICAL EXAMINATION: VITAL SIGNS: . HEAD: Normal. ENT: Normal. NECK: Supple and nontender. LUNGS: Clear. CARDIOVASCULAR SYSTEM: S1 and S2 heard. ABDOMEN: Soft. Bowel sounds are heard. CENTRAL NERVOUS SYSTEM: Grossly normal. DIAGNOSES: Left the patient is being admitted and I will follow the patient. JOB# [id number]
--- NOTE | 2018-01-19 16:33 | General Progress Note ---
Subjective - Review of Systems Subjective: Pt. awake, alert, abd pain is improving Objective - Results Result Diagrams: 01/18/18 05:22 01/18/18 05:22 Recent Labs: Laboratory Last Values WBC 4.2 Th/cmm (4.8-10.8) L 01/18/18 05:22 RBC 3.16 Mil/cmm (3.80-5.10) L 01/18/18 05:22 Hgb 11.0 gm/dL (12-16) L 01/18/18 05:22 Hct 31.9 % (41.0-60) L 01/18/18 05:22 MCV 101.0 fl (81-100) H 01/18/18 05:22 MCH 34.9 pg (27.0-31.0) H 01/18/18 05:22 MCHC Differential 34.5 pg (28.0-36.0) 01/18/18 05:22 RDW 11.9 % (11.5-20.0) 01/18/18 05:22 Plt Count 221 Th/cmm (150-400) 01/18/18 05:22 MPV 7.7 fl 01/18/18 05:22 Neutrophils % 69.0 % (40.0-80.0) 01/18/18 05:22 Lymphocytes % 19.3 % (20.0-50.0) L 01/18/18 05:22 Monocytes % 9.8 % (2.0-10.0) 01/18/18 05:22 Eosinophils % 1.0 % (0.0-5.0) 01/18/18 05:22 Basophils % 0.9 % (0.0-2.0) 01/18/18 05:22 Sodium 131 mEq/L (136-145) L 01/18/18 05:22 Potassium 3.8 mEq/L (3.5-5.1) 01/18/18 05:22 Chloride 102 mEq/L (98-107) 01/18/18 05:22 Carbon Dioxide 24.5 mEq/L (21.0-31.0) 01/18/18 05:22 Anion Gap 8.3 (7.0-16.0) 01/18/18 05:22 BUN 9 mg/dL (7-25) 01/18/18 05:22 Creatinine 0.9 mg/dL (0.6-1.2) 01/18/18 05:22 Est GFR ( Amer) > 60.0 ml/min (>90) 01/18/18 05:22 Est GFR (Non-Af Amer) > 60.0 ml/min 01/18/18 05:22 BUN/Creatinine Ratio 10.0 01/18/18 05:22 Glucose 119 mg/dL (70-105) H 01/18/18 05:22 POC Glucose 106 MG/DL (70 - 105) H 01/19/18 12:29 Whole Bld Lactic Acid 0.77 mmol/L (0.60-1.99) 01/15/18 18:00 Calcium 8.6 mg/dL (8.6-10.3) 01/18/18 05:22 Total Bilirubin 0.4 mg/dL (0.3-1.0) 01/15/18 18:00 AST 17 U/L (13-39) 01/15/18 18:00 ALT 9 U/L (7-52) 01/15/18 18:00 Alkaline Phosphatase 67 U/L (34-104) 01/15/18 18:00 Total Protein 6.9 gm/dL (6.0-8.3) 01/15/18 18:00 Albumin 4.0 gm/dL (3.7-5.3) 01/15/18 18:00 Globulin 2.9 gm/dL 01/15/18 18:00 Albumin/Globulin Ratio 1.4 (1.0-1.8) 01/15/18 18:00 Urine Source CLEAN C 01/15/18 18:08 Urine Color YELLOW 01/15/18 18:08 Urine Clarity CLEAR (CLEAR) 01/15/18 18:08 Urine pH 7.5 (4.6 - 8.0) 01/15/18 18:08 Ur Specific [place] <= 1.005 (1.005-1.030) 01/15/18 18:08 Urine Protein NEGATIVE mg/dL (NEGATIVE) 01/15/18 18:08 Urine Glucose (UA) NEGATIVE mg/dL (NEGATIVE) 01/15/18 18:08 Urine Ketones NEGATIVE mg/dL (NEGATIVE) 01/15/18 18:08 Urine Blood NEGATIVE (NEGATIVE) 01/15/18 18:08 Urine Nitrate NEGATIVE (NEGATIVE) 01/15/18 18:08 Urine Bilirubin NEGATIVE (NEGATIVE) 01/15/18 18:08 Urine Urobilinogen 0.2 E.U./dL (0.2 - 1.0) 01/15/18 18:08 Ur Leukocyte Esterase NEGATIVE (NEGATIVE) 01/15/18 18:08 Urine RBC 0-2 /hpf (0-5) 01/15/18 18:08 Urine WBC 0-2 /hpf (0-5) 01/15/18 18:08 Ur Epithelial Cells OCCASIONAL /lpf (FEW) 01/15/18 18:08 Urine Bacteria OCCASIONAL /hpf (NONE SEEN) 01/15/18 18:08 Urine Test NEGATIVE 01/15/18 17:30 - Physical Exam Vitals and I&O: Vital Signs Temp 98.1 F 01/19/18 16:17 Pulse 66 01/19/18 16:17 Resp 18 01/19/18 16:17 BP 126/80 01/19/18 16:17 Pulse Ox 99 01/19/18 16:17 Intake & Output 01/18/18 01/19/18 01/19/18 18:59 06:59 18:59 Intake Total 2500 Balance 2500 Weight (lbs) 75.75 kg Intake: Oral 2500 Other: # Voids 8 # Bowel Movements 5 Stool Characteristics Soft Liquid Brown Black Weight Source Bedscale Active Medications: Current Medications Acetaminophen (Tylenol) 650 mg PO Q6H PRN PRN Reason: Abdominal Pain Stop: 03/18/18 15:00 Last Admin: 01/18/18 12:49 Dose: 650 mg Ascorbic Acid (Vitamin C) 500 mg PO DAILY [facility] Stop: 03/17/18 08:59 Last Admin: 01/19/18 08:44 Dose: 500 mg Benztropine Mesylate (Cogentin) 0.5 mg PO DAILY [facility] Stop: 03/17/18 08:59 Last Admin: 01/19/18 08:44 Dose: 0.5 mg Cyanocobalamin (Vitamin B12) 1,000 mcg PO DAILY [facility] Stop: 03/17/18 08:59 Last Admin: 01/19/18 08:44 Dose: 1,000 mcg Docusate Sodium (Colace) 100 mg PO BID [facility] Stop: 03/17/18 08:59 Last Admin: 01/19/18 08:44 Dose: 100 mg Famotidine (Pepcid) 20 mg PO BID [facility] Stop: 03/17/18 08:59 Last Admin: 01/19/18 08:44 Dose: 20 mg Ferrous Sulfate (Iron) 325 mg PO DAILY [facility] Stop: 03/17/18 08:59 Last Admin: 01/19/18 08:44 Dose: 325 mg Levofloxacin (Levaquin Pb) 500 mg in 100 mls @ 100 mls/hr IV Q24HR [facility] Stop: 03/17/18 00:00 Last Admin: 01/18/18 23:10 Dose: 100 mls/hr Dextrose/Sodium Chloride (D5-0.45ns) 1,000 mls @ 100 mls/hr IV .Q10H [facility] Stop: 03/17/18 13:44 Last Admin: 01/19/18 06:58 Dose: 100 mls/hr Insulin Aspart (Novolog Insulin Sliding Scale) 0 units SUBQ ACHS [facility]; Protocol Stop: 03/18/18 16:29 Last Admin: 01/19/18 13:19 Dose: Not Given Ketoconazole (Nizoral) 120 ml TP Q72HR [facility] Stop: 03/18/18 08:59 Last Admin: 01/17/18 09:31 Dose: 120 ml Levothyroxine Sodium (Synthroid) 0.075 mg PO QDAC [facility] Stop: 03/17/18 07:29 Last Admin: 01/19/18 06:58 Dose: 0.075 mg Multivitamins/Vitamin C (Theragran) 1 tab PO DAILY [facility] Stop: 03/17/18 08:59 Last Admin: 01/19/18 08:44 Dose: 1 tab Ondansetron HCl (Zofran) 4 mg IV Q6H PRN PRN Reason: Nausea / Vomiting Stop: 03/17/18 11:16 Last Admin: 01/17/18 11:32 Dose: 4 mg Paroxetine HCl (Paxil) 20 mg PO DAILY [facility]; Protocol Stop: 03/17/18 08:59 Last Admin: 01/19/18 08:44 Dose: 20 mg Simethicone (Mylicon) 80 mg PO QID PRN PRN Reason: Gas Stop: 03/18/18 14:48 Last Admin: 01/17/18 16:08 Dose: 80 mg Ziprasidone (Geodon) 80 mg PO BID [facility] Stop: 03/17/18 08:59 Last Admin: 01/19/18 08:44 Dose: 80 mg General: Alert HEENT: EOMI Neck: Supple Cardiovascular: Regular rate Abdomen: Bowel sounds, Soft, no Tender, no Hepatomegaly, no Splenomegaly, no Distended, no Rebound, no Mass - Procedures Procedures: Procedures Procedure Code Date CHANGE DRAINAGE DEVICE IN BLADDER, EXTERNAL APPROACH [id number] 03/30/15 INSERT BLADDER CATH COMPLEX 87620 03/02/15 INSERT TEMP BLADDER CATH 43307 03/30/15 REPLACE INDWELLING CATH 57.95 03/02/15 Assessment/Plan - Assessment Assessment: Down's Syndrome Constipation ABD pain Diabetes HTN - Plan Plan: As per GI Will monitor pt. CPM Nutritional Asmnt/Malnutr-PDOC - Dietary Evaluation Malnutrition Findings (Please click <Entered> for more info): Nutritional Asmnt/Malnutrition Start: 01/16/18 17: 12 Text: Status: Complete Freq: Protocol: Document 01/16/18 17:12 BERNA (Rec: 01/16/18 17:28 [email or web address] [id number]) Nutritional Asmnt/Malnutrition Patient General Information Nutritional Screening Moderate Risk Consult Diagnosis abdominal pain Pertinent Medical Hx/Surgical Hx DM, HTN Subjective Information Consult received for hx of DM. Pt seen lying in bed at time of visit, awake. Pt stated still has nausea. Pt still on NPO noted. Current Diet Order/ Nutrition Support NPO Pertinent Medications vit C, D5-0.45ns, colace, pepcid, iron, levaquin, synthroid, theragran Pertinent Labs 01/16 Na 130, glucose 105, POC 84-95 01/15 Na 127, Cl 95, glucose 96 , POC 112 Nutritional Hx/Data Height 1.57 m Height (Calculated Centimeters) 157.5 Current Weight (lbs) 76.657 kg Weight (Calculated Kilograms) 76.7 Weight (Calculated Grams) 21666.1 [place] Body Weight 110 Body Mass Index (BMI) 30.9 Weight Status Obese GI Symptoms GI Symptoms None Last BM not indicated Difficult in: None Usual diet at home pt stated no diet restriction before Skin Integrity/Comment: intact Estimated Nutritional Goals BEE in Kcals: Adj wt of IBW Calories/Kcals/Kg 25-30 Kcals Calculated 1674-8911 Protein: Adj wt of IBW Protein g/k.8-1 Protein Calculated 45-57 Fluid: ml 1425-1710ml (1ml/kcal) Nutritional Problem 1. Problem Problem inadequate energy intake Etiology altered GI function Signs/Symptoms: pt on NPO Malnutrition Alert Is there a minimum of two criteria No selected? Query Text:Check all the applicable criteria. A minimum of two criteria are recommended for diagnosis of either severe or non-severe malnutrition. Malnutrition Related to Morbid Obesity Malnutrition related to morbid obesity No Intervention/Recommendation Comments 1. Monitor NPO status. Start clear liquid with Ensure clear when medically appropriate. Monitor glucose when oral diet states. 2. Monitor PO intake, wt, labs and skin integrity 3. F/U as high risk in 2-3 days, 01/18-01/19 Expected Outcomes/Goals Expected Outcomes/Goals 1. PO intake to meet at least 75% of nutritional needs. 2. Wt stability, skin to remain intact, labs to approach WNL.
[2018-01-19] MEDS: Levofloxacin 500mg/100mL 500 MG/100 ML BAG IV SCH (23:07)
[2018-01-20] MEDS: INSULIN ASPART SLIDING SCALE 100 UNITS/ML UNIT SUBQ SCH ×2 (07:17→13:43)
[2018-01-20] MEDS: D5-0.45NS 1,000 ML IV SCH (07:18)
[2018-01-20] MEDS: Levothyroxine 0.075 Mg Tab PO SCH (07:20)
--- NOTE | 2018-01-20 09:23 | GI Progress Note ---
Subjective - Review of Systems Service Date: 01/20/18 Subjective: Feeling better now, no abd pain Objective - Results Result Diagrams: 01/18/18 05:22 01/18/18 05:22 Recent Labs: Laboratory Last Values WBC 4.2 Th/cmm (4.8-10.8) L 01/18/18 05:22 RBC 3.16 Mil/cmm (3.80-5.10) L 01/18/18 05:22 Hgb 11.0 gm/dL (12-16) L 01/18/18 05:22 Hct 31.9 % (41.0-60) L 01/18/18 05:22 MCV 101.0 fl (81-100) H 01/18/18 05:22 MCH 34.9 pg (27.0-31.0) H 01/18/18 05:22 MCHC Differential 34.5 pg (28.0-36.0) 01/18/18 05:22 RDW 11.9 % (11.5-20.0) 01/18/18 05:22 Plt Count 221 Th/cmm (150-400) 01/18/18 05:22 MPV 7.7 fl 01/18/18 05:22 Neutrophils % 69.0 % (40.0-80.0) 01/18/18 05:22 Lymphocytes % 19.3 % (20.0-50.0) L 01/18/18 05:22 Monocytes % 9.8 % (2.0-10.0) 01/18/18 05:22 Eosinophils % 1.0 % (0.0-5.0) 01/18/18 05:22 Basophils % 0.9 % (0.0-2.0) 01/18/18 05:22 Sodium 131 mEq/L (136-145) L 01/18/18 05:22 Potassium 3.8 mEq/L (3.5-5.1) 01/18/18 05:22 Chloride 102 mEq/L (98-107) 01/18/18 05:22 Carbon Dioxide 24.5 mEq/L (21.0-31.0) 01/18/18 05:22 Anion Gap 8.3 (7.0-16.0) 01/18/18 05:22 BUN 9 mg/dL (7-25) 01/18/18 05:22 Creatinine 0.9 mg/dL (0.6-1.2) 01/18/18 05:22 Est GFR ( Amer) > 60.0 ml/min (>90) 01/18/18 05:22 Est GFR (Non-Af Amer) > 60.0 ml/min 01/18/18 05:22 BUN/Creatinine Ratio 10.0 01/18/18 05:22 Glucose 119 mg/dL (70-105) H 01/18/18 05:22 POC Glucose 101 MG/DL (70 - 105) 01/20/18 06:55 Whole Bld Lactic Acid 0.77 mmol/L (0.60-1.99) 01/15/18 18:00 Calcium 8.6 mg/dL (8.6-10.3) 01/18/18 05:22 Total Bilirubin 0.4 mg/dL (0.3-1.0) 01/15/18 18:00 AST 17 U/L (13-39) 01/15/18 18:00 ALT 9 U/L (7-52) 01/15/18 18:00 Alkaline Phosphatase 67 U/L (34-104) 01/15/18 18:00 Total Protein 6.9 gm/dL (6.0-8.3) 01/15/18 18:00 Albumin 4.0 gm/dL (3.7-5.3) 01/15/18 18:00 Globulin 2.9 gm/dL 01/15/18 18:00 Albumin/Globulin Ratio 1.4 (1.0-1.8) 01/15/18 18:00 Urine Source CLEAN C 01/15/18 18:08 Urine Color YELLOW 01/15/18 18:08 Urine Clarity CLEAR (CLEAR) 01/15/18 18:08 Urine pH 7.5 (4.6 - 8.0) 01/15/18 18:08 Ur Specific [place] <= 1.005 (1.005-1.030) 01/15/18 18:08 Urine Protein NEGATIVE mg/dL (NEGATIVE) 01/15/18 18:08 Urine Glucose (UA) NEGATIVE mg/dL (NEGATIVE) 01/15/18 18:08 Urine Ketones NEGATIVE mg/dL (NEGATIVE) 01/15/18 18:08 Urine Blood NEGATIVE (NEGATIVE) 01/15/18 18:08 Urine Nitrate NEGATIVE (NEGATIVE) 01/15/18 18:08 Urine Bilirubin NEGATIVE (NEGATIVE) 01/15/18 18:08 Urine Urobilinogen 0.2 E.U./dL (0.2 - 1.0) 01/15/18 18:08 Ur Leukocyte Esterase NEGATIVE (NEGATIVE) 01/15/18 18:08 Urine RBC 0-2 /hpf (0-5) 01/15/18 18:08 Urine WBC 0-2 /hpf (0-5) 01/15/18 18:08 Ur Epithelial Cells OCCASIONAL /lpf (FEW) 01/15/18 18:08 Urine Bacteria OCCASIONAL /hpf (NONE SEEN) 01/15/18 18:08 Urine Test NEGATIVE 01/15/18 17:30 - Physical Exam Vitals and I&O: Vital Signs Temp 97.8 F 01/20/18 04:00 Pulse 67 01/20/18 04:00 Resp 17 01/20/18 04:00 BP 102/53 01/20/18 04:00 Pulse Ox 99 01/20/18 04:00 Intake & Output 01/19/18 01/20/18 01/20/18 18:59 06:59 18:59 Intake Total 1550 Balance 1550 Weight (lbs) 75.75 kg 75.296 kg Intake: Intake, IV Amount 1000 D5-0.45NS 1,000 ml @ 100 1000 mls/hr IV .Q10H [facility] Rx#: [id number] Oral 550 Other: # Voids 3 3 # Bowel Movements 2 Stool Characteristics Soft Liquid Liquid Brown Black Weight Source Bedscale Bedscale Active Medications: Current Medications Acetaminophen (Tylenol) 650 mg PO Q6H PRN PRN Reason: Abdominal Pain Stop: 03/18/18 15:00 Last Admin: 01/18/18 12:49 Dose: 650 mg Ascorbic Acid (Vitamin C) 500 mg PO DAILY [facility] Stop: 03/17/18 08:59 Last Admin: 01/19/18 08:44 Dose: 500 mg Benztropine Mesylate (Cogentin) 0.5 mg PO DAILY [facility] Stop: 03/17/18 08:59 Last Admin: 01/19/18 08:44 Dose: 0.5 mg Cyanocobalamin (Vitamin B12) 1,000 mcg PO DAILY [facility] Stop: 03/17/18 08:59 Last Admin: 01/19/18 08:44 Dose: 1,000 mcg Docusate Sodium (Colace) 100 mg PO BID [facility] Stop: 03/17/18 08:59 Last Admin: 01/19/18 16:35 Dose: Not Given Famotidine (Pepcid) 20 mg PO BID [facility] Stop: 03/17/18 08:59 Last Admin: 01/19/18 16:35 Dose: Not Given Ferrous Sulfate (Iron) 325 mg PO DAILY [facility] Stop: 03/17/18 08:59 Last Admin: 01/19/18 08:44 Dose: 325 mg Levofloxacin (Levaquin Pb) 500 mg in 100 mls @ 100 mls/hr IV Q24HR [facility] Stop: 03/17/18 00:00 Last Admin: 01/19/18 23:07 Dose: 100 mls/hr Dextrose/Sodium Chloride (D5-0.45ns) 1,000 mls @ 100 mls/hr IV .Q10H [facility] Stop: 03/17/18 13:44 Last Admin: 01/20/18 07:18 Dose: 100 mls/hr Insulin Aspart (Novolog Insulin Sliding Scale) 0 units SUBQ ACHS [facility]; Protocol Stop: 03/18/18 16:29 Last Admin: 01/20/18 07:17 Dose: Not Given Ketoconazole (Nizoral) 120 ml TP Q72HR [facility] Stop: 03/18/18 08:59 Last Admin: 01/17/18 09:31 Dose: 120 ml Levothyroxine Sodium (Synthroid) 0.075 mg PO QDAC [facility] Stop: 03/17/18 07:29 Last Admin: 01/20/18 07:20 Dose: 0.075 mg Multivitamins/Vitamin C (Theragran) 1 tab PO DAILY [facility] Stop: 03/17/18 08:59 Last Admin: 01/19/18 08:44 Dose: 1 tab Ondansetron HCl (Zofran) 4 mg IV Q6H PRN PRN Reason: Nausea / Vomiting Stop: 03/17/18 11:16 Last Admin: 01/17/18 11:32 Dose: 4 mg Paroxetine HCl (Paxil) 20 mg PO DAILY [facility]; Protocol Stop: 03/17/18 08:59 Last Admin: 01/19/18 08:44 Dose: 20 mg Simethicone (Mylicon) 80 mg PO QID PRN PRN Reason: Gas Stop: 03/18/18 14:48 Last Admin: 01/17/18 16:08 Dose: 80 mg Ziprasidone (Geodon) 80 mg PO BID [facility] Stop: 03/17/18 08:59 Last Admin: 01/19/18 16:34 Dose: Not Given General: Alert HEENT: EOMI Neck: Supple Cardiovascular: Regular rate Abdomen: Bowel sounds, Soft, no Tender, no Hepatomegaly, no Splenomegaly, no Distended, no Rebound, no Mass - Procedures Procedures: Procedures Procedure Code Date CHANGE DRAINAGE DEVICE IN BLADDER, EXTERNAL APPROACH [id number] 03/30/15 INSERT BLADDER CATH COMPLEX 58858 03/02/15 INSERT TEMP BLADDER CATH [id number] 03/30/15 REPLACE INDWELLING CATH 57.95 03/02/15 Assessment/Plan - Assessment Assessment: # Down's syndrome # Constipation # Abd pain # Diabetes # HTN The pt's clinical pain is vague, and often intermittent. Imaging all shows copious stool throughout her colon and small bowel, and it is likely that her pain is constipation related. Bowel prep given on 01/18, and pt has had several large BMs. She seems to be much more comfortable after this. Plan: - cont strong bowel regimen to prevent recurrence of obstipation and pain - consider endoscopy if her pain returns, although she is feeling better now after BMs - trend hgb - cont supportive measures
[2018-01-20] MEDS: Ferrous Sulfate 325 MG TAB PO SCH (09:29)
[2018-01-20] MEDS: Multivitamin Tab PO SCH (09:31)
[2018-01-20] MEDS ORDERED: POLYETHYLENE GLYCOL 3350 17 GM PACK PO SCH (09:45)
--- NOTE | 2018-01-20 11:34 | Infectious Disease Prog Note ---
Infectious Disease Subjective - Review of Systems Service Date: 01/20/18 Subjective: Doing well. No event. Infectious Disease Objective - Results Result Diagrams: 01/18/18 05:22 01/18/18 05:22 Recent Labs: Laboratory Last Values WBC 4.2 Th/cmm (4.8-10.8) L 01/18/18 05:22 RBC 3.16 Mil/cmm (3.80-5.10) L 01/18/18 05:22 Hgb 11.0 gm/dL (12-16) L 01/18/18 05:22 Hct 31.9 % (41.0-60) L 01/18/18 05:22 MCV 101.0 fl (81-100) H 01/18/18 05:22 MCH 34.9 pg (27.0-31.0) H 01/18/18 05:22 MCHC Differential 34.5 pg (28.0-36.0) 01/18/18 05:22 RDW 11.9 % (11.5-20.0) 01/18/18 05:22 Plt Count 221 Th/cmm (150-400) 01/18/18 05:22 MPV 7.7 fl 01/18/18 05:22 Neutrophils % 69.0 % (40.0-80.0) 01/18/18 05:22 Lymphocytes % 19.3 % (20.0-50.0) L 01/18/18 05:22 Monocytes % 9.8 % (2.0-10.0) 01/18/18 05:22 Eosinophils % 1.0 % (0.0-5.0) 01/18/18 05:22 Basophils % 0.9 % (0.0-2.0) 01/18/18 05:22 Sodium 131 mEq/L (136-145) L 01/18/18 05:22 Potassium 3.8 mEq/L (3.5-5.1) 01/18/18 05:22 Chloride 102 mEq/L (98-107) 01/18/18 05:22 Carbon Dioxide 24.5 mEq/L (21.0-31.0) 01/18/18 05:22 Anion Gap 8.3 (7.0-16.0) 01/18/18 05:22 BUN 9 mg/dL (7-25) 01/18/18 05:22 Creatinine 0.9 mg/dL (0.6-1.2) 01/18/18 05:22 Est GFR ( Amer) > 60.0 ml/min (>90) 01/18/18 05:22 Est GFR (Non-Af Amer) > 60.0 ml/min 01/18/18 05:22 BUN/Creatinine Ratio 10.0 01/18/18 05:22 Glucose 119 mg/dL (70-105) H 01/18/18 05:22 POC Glucose 101 MG/DL (70 - 105) 01/20/18 06:55 Whole Bld Lactic Acid 0.77 mmol/L (0.60-1.99) 01/15/18 18:00 Calcium 8.6 mg/dL (8.6-10.3) 01/18/18 05:22 Total Bilirubin 0.4 mg/dL (0.3-1.0) 01/15/18 18:00 AST 17 U/L (13-39) 01/15/18 18:00 ALT 9 U/L (7-52) 01/15/18 18:00 Alkaline Phosphatase 67 U/L (34-104) 01/15/18 18:00 Total Protein 6.9 gm/dL (6.0-8.3) 01/15/18 18:00 Albumin 4.0 gm/dL (3.7-5.3) 01/15/18 18:00 Globulin 2.9 gm/dL 01/15/18 18:00 Albumin/Globulin Ratio 1.4 (1.0-1.8) 01/15/18 18:00 Urine Source CLEAN C 01/15/18 18:08 Urine Color YELLOW 01/15/18 18:08 Urine Clarity CLEAR (CLEAR) 01/15/18 18:08 Urine pH 7.5 (4.6 - 8.0) 01/15/18 18:08 Ur Specific [place] <= 1.005 (1.005-1.030) 01/15/18 18:08 Urine Protein NEGATIVE mg/dL (NEGATIVE) 01/15/18 18:08 Urine Glucose (UA) NEGATIVE mg/dL (NEGATIVE) 01/15/18 18:08 Urine Ketones NEGATIVE mg/dL (NEGATIVE) 01/15/18 18:08 Urine Blood NEGATIVE (NEGATIVE) 01/15/18 18:08 Urine Nitrate NEGATIVE (NEGATIVE) 01/15/18 18:08 Urine Bilirubin NEGATIVE (NEGATIVE) 01/15/18 18:08 Urine Urobilinogen 0.2 E.U./dL (0.2 - 1.0) 01/15/18 18:08 Ur Leukocyte Esterase NEGATIVE (NEGATIVE) 01/15/18 18:08 Urine RBC 0-2 /hpf (0-5) 01/15/18 18:08 Urine WBC 0-2 /hpf (0-5) 01/15/18 18:08 Ur Epithelial Cells OCCASIONAL /lpf (FEW) 01/15/18 18:08 Urine Bacteria OCCASIONAL /hpf (NONE SEEN) 01/15/18 18:08 Urine Test NEGATIVE 01/15/18 17:30 - Physical Exam Vitals and I&O: Vital Signs Temp 97.2 F 01/20/18 10:15 Pulse 85 01/20/18 10:15 Resp 18 01/20/18 10:15 BP 127/73 01/20/18 10:15 Pulse Ox 100 01/20/18 10:15 Intake & Output 01/19/18 01/20/18 01/20/18 18:59 06:59 18:59 Intake Total 1550 Balance 1550 Weight (lbs) 75.75 kg 75.296 kg Intake: Intake, IV Amount 1000 D5-0.45NS 1,000 ml @ 100 1000 mls/hr IV .Q10H [facility] Rx#: [id number] Oral 550 Other: # Voids 3 3 # Bowel Movements 2 Stool Characteristics Soft Liquid Liquid Liquid Brown Black Weight Source Bedscale Bedscale Active Medications: Current Medications Acetaminophen (Tylenol) 650 mg PO Q6H PRN PRN Reason: Abdominal Pain Stop: 03/18/18 15:00 Last Admin: 01/18/18 12:49 Dose: 650 mg Ascorbic Acid (Vitamin C) 500 mg PO DAILY [facility] Stop: 03/17/18 08:59 Last Admin: 01/20/18 09:31 Dose: 500 mg Benztropine Mesylate (Cogentin) 0.5 mg PO DAILY [facility] Stop: 03/17/18 08:59 Last Admin: 01/20/18 09:31 Dose: 0.5 mg Cyanocobalamin (Vitamin B12) 1,000 mcg PO DAILY [facility] Stop: 03/17/18 08:59 Last Admin: 01/20/18 09:29 Dose: 1,000 mcg Docusate Sodium (Colace) 100 mg PO BID [facility] Stop: 03/17/18 08:59 Last Admin: 01/20/18 09:30 Dose: 100 mg Famotidine (Pepcid) 20 mg PO BID [facility] Stop: 03/17/18 08:59 Last Admin: 01/20/18 09:29 Dose: 20 mg Ferrous Sulfate (Iron) 325 mg PO DAILY [facility] Stop: 03/17/18 08:59 Last Admin: 01/20/18 09:29 Dose: 325 mg Levofloxacin (Levaquin Pb) 500 mg in 100 mls @ 100 mls/hr IV Q24HR [facility] Stop: 03/17/18 00:00 Last Admin: 01/19/18 23:07 Dose: 100 mls/hr Dextrose/Sodium Chloride (D5-0.45ns) 1,000 mls @ 100 mls/hr IV .Q10H [facility] Stop: 03/17/18 13:44 Last Admin: 01/20/18 07:18 Dose: 100 mls/hr Insulin Aspart (Novolog Insulin Sliding Scale) 0 units SUBQ ACHS [facility]; Protocol Stop: 03/18/18 16:29 Last Admin: 01/20/18 07:17 Dose: Not Given Ketoconazole (Nizoral) 120 ml TP Q72HR [facility] Stop: 03/18/18 08:59 Last Admin: 01/17/18 09:31 Dose: 120 ml Levothyroxine Sodium (Synthroid) 0.075 mg PO QDAC [facility] Stop: 03/17/18 07:29 Last Admin: 01/20/18 07:20 Dose: 0.075 mg Multivitamins/Vitamin C (Theragran) 1 tab PO DAILY [facility] Stop: 03/17/18 08:59 Last Admin: 01/20/18 09:31 Dose: 1 tab Ondansetron HCl (Zofran) 4 mg IV Q6H PRN PRN Reason: Nausea / Vomiting Stop: 03/17/18 11:16 Last Admin: 01/17/18 11:32 Dose: 4 mg Paroxetine HCl (Paxil) 20 mg PO DAILY [facility]; Protocol Stop: 03/17/18 08:59 Last Admin: 01/20/18 09:30 Dose: 20 mg Polyethylene Glycol (Miralax) 17 gm PO BID [facility] Stop: 03/21/18 09:44 Simethicone (Mylicon) 80 mg PO QID PRN PRN Reason: Gas Stop: 03/18/18 14:48 Last Admin: 01/17/18 16:08 Dose: 80 mg Ziprasidone (Geodon) 80 mg PO BID [facility] Stop: 03/17/18 08:59 Last Admin: 01/20/18 09:31 Dose: 80 mg General: no acute distress, well developed, well nourished HEENT: atraumatic, normocephalic, PERRLA, EOMI Neck: supple, no thyromegaly, no lymphadenopathy Cardiovascular: S1S2, regular Lungs: clear to auscultation bilaterally, clear to percussion Abdomen: soft, no tender, no distended Extremities: no cyanosis, no clubbing, no edema Neurological: awake, alert, oriented Skin: intact - Procedures Procedures: Procedures Procedure Code Date CHANGE DRAINAGE DEVICE IN BLADDER, EXTERNAL APPROACH [id number] 03/30/15 INSERT BLADDER CATH COMPLEX [id number] 03/02/15 INSERT TEMP BLADDER CATH [id number] 03/30/15 REPLACE INDWELLING CATH 57.95 03/02/15 Infectious Disease Assmt/Plan - Assessment Assessment: 1. Left lower quadrant pain, left flank pain, unknown etiology. 2. Diabetes mellitus type 2. 3. Hypertension. 4. Bilateral hydronephrosis. 5. Cystitis versus UTI. - Plan Plan: DC Levaquin. Nutritional Asmnt/Malnutr-PDOC - Dietary Evaluation Malnutrition Findings (Please click <Entered> for more info): Nutritional Asmnt/Malnutrition Start: 01/16/18 17: 12 Text: Status: Complete Freq: Protocol: Document 01/16/18 17:12 LCHENG (Rec: 01/16/18 17:28 BERNAG [id number]) Nutritional Asmnt/Malnutrition Patient General Information Nutritional Screening Moderate Risk Consult Diagnosis abdominal pain Pertinent Medical Hx/Surgical Hx DM, HTN Subjective Information Consult received for hx of DM. Pt seen lying in bed at time of visit, awake. Pt stated still has nausea. Pt still on NPO noted. Current Diet Order/ Nutrition Support NPO Pertinent Medications vit C, D5-0.45ns, colace, pepcid, iron, levaquin, synthroid, theragran Pertinent Labs 7/23 Na 130, glucose 105, POC 84-95 01/15 Na 127, Cl 95, glucose 96 , POC 112 Nutritional Hx/Data Height 1.57 m Height (Calculated Centimeters) 157.5 Current Weight (lbs) 76.657 kg Weight (Calculated Kilograms) 76.7 Weight (Calculated Grams) 95141.1 [place] Body Weight 110 Body Mass Index (BMI) 30.9 Weight Status Obese GI Symptoms GI Symptoms None Last BM not indicated Difficult in: None Usual diet at home pt stated no diet restriction before Skin Integrity/Comment: intact Estimated Nutritional Goals BEE in Kcals: Adj wt of IBW Calories/Kcals/Kg 25-30 Kcals Calculated 3852-7206 Protein: Adj wt of IBW Protein g/k.8-1 Protein Calculated 45-57 Fluid: ml 1425-1710ml (1ml/kcal) Nutritional Problem 1. Problem Problem inadequate energy intake Etiology altered GI function Signs/Symptoms: pt on NPO Malnutrition Alert Is there a minimum of two criteria No selected? Query Text:Check all the applicable criteria. A minimum of two criteria are recommended for diagnosis of either severe or non-severe malnutrition. Malnutrition Related to Morbid Obesity Malnutrition related to morbid obesity No Intervention/Recommendation Comments 1. Monitor NPO status. Start clear liquid with Ensure clear when medically appropriate. Monitor glucose when oral diet states. 2. Monitor PO intake, wt, labs and skin integrity 3. F/U as high risk in 2-3 days, 01/18-01/19 Expected Outcomes/Goals Expected Outcomes/Goals 1. PO intake to meet at least 75% of nutritional needs. 2. Wt stability, skin to remain intact, labs to approach WNL.
[2018-01-20] MEDS: KETOCONAZOLE 2% 120 ML SHAMP TP SCH (13:37)
--- NOTE | 2018-01-23 17:34 | Discharge Summary ---
DATE OF DISCHARGE: 01/20/2018 HOSPITAL COURSE: The patient was admitted to [facility] on 01/15/2018, was discharged on 01/20/2018, back to board and care. The patient is a 47-year-old female patient apparently has a history of underlying psychosis, complaining of left flank pain, history of diabetes, hypertension, mental challenge. The patient was admitted, had a complete workup done and this was essentially negative. He was seen by the insecticide maker. The patient was in stable condition on 01/20/2018, the diagnosis of musculoskeletal pain, abdominal pain resolved, history of hypertension, history of diabetes, history of mental challenge. ____ medication. I will follow the patient. CONDITION AT THE TIME OF DISCHARGE: Stable. ____. [facility]# [id number]
== END 2018-01-20 11:35 | disposition home or self-care (01) | DRG 690 ==
LOC: ER 17:08 → MSI 19:45
PROVIDERS: ADMIT Internal Medicine; ATTEND Internal Medicine
DX: N13.6 Pyonephrosis (principal); E87.1 Hypo-osmolality and hyponatremia; M79.1 Myalgia; R10.32 Left lower quadrant pain; E11.9 Type 2 diabetes mellitus without complications; I10 Essential (primary) hypertension; D70.9 Neutropenia, unspecified; Q90.9 Down syndrome, unspecified; K59.00 Constipation, unspecified
CPT/HCPCS: 36415-UA; 71045-TC; 74000-TC; 76700-TC; 76856-TC; 80048-TC; 80053-TC; 81001-TC; 81025-TC; 82948-90; 83605; 85025-TC; 94760; 96374; J1815; J1885; J1956; J2270; J2405; J7030; Z7610